=== PATIENT | male | born 1945 | race Two or more races ===

== ENCOUNTER 2024-04-21 13:45 | Outpatient (RCR) | payer MEDICARE, BC, SELFPAY ==
[2024-04-20 08:54] LABS: Basophils # (Auto) 0.1 Thou/mm3 (0.0-0.2); Basophils % (Auto) 2 % (0-2.5); Eosinophils # (Auto) 0.2 Thou/mm3 (0.0-0.5); Eosinophils % (Auto) 4 % (0-10); Hematocrit 41.2 % (41.0-53.0); Hemoglobin 14.1 g/dL (13.5-16.0); Immature Granulocytes % (Auto) 0 % (0-0); Immature Granulocytes Auto 0.01 Thou/mm3 (0.00-0.00); Lymphocytes # (Auto) 0.9 Thou/mm3 (1.0-4.8); Lymphocytes % (Auto) 22 % (10-50); Mean Corpuscular HGB Conc 34.2 g/dl (31.0-37.0); Mean Corpuscular Hemoglobin 30.7 pg (25.0-35.0); Mean Corpuscular Volume 90 fL (80-100); Monocytes # (Auto) 0.5 Thou/mm3 (0.0-0.8); Monocytes % (Auto) 13 % (0-12); Neutrophils # (Auto) 2.3 Thou/mm3 (1.8-7.7); Neutrophils % (Auto) 59 % (37-80); Nucleated Red Blood Cell % 0 /100 WBC (0); Platelet Count 158 Thou/mm3 (140-440); RDW Standard Deviation 44.4 fL (35.1-43.9)
[2024-04-20 09:16] LABS: Alanine Aminotransferase 29 U/L (10-49); Albumin, Serum 4.8 gm/dL (3.4-4.8); Albumin/Globulin Ratio 1.7 (1.2-2.2); Alkaline Phosphatase 83 U/L (46-116); Anion Gap 5 (7-16); Aspartate Amino Transferase 22 U/L (0-34); BUN/Creatinine Ratio 17 Ratio (12-20); Bilirubin,Total 0.7 mg/dL (0.3-1.2); Blood Urea Nitrogen 17 mg/dL (9-23); Calcium 9.9 mg/dL (8.3-10.6); Calcium (Corrected) 9.9 mg/dL (8.5-10.1); Carbon Dioxide 26.5 mMol/L (20.0-31.0); Chloride 107 mMol/L (98-107); Free T4 (Free Thyroxine) 1.72 ng/dL (0.89-1.76); Globulin 2.9 gm/dL (2.3-3.5); Glucose 121 mg/dL (74-106); Osmolality,Calculated 278 (275-295); Potassium 3.8 mMol/L (3.4-5.1); Sodium 138 mMol/L (136-145); Thyroid Stimulating Hormone 3.18 uIU/mL (0.55-4.78); Total Protein 7.7 gm/dL (5.7-8.2); eGFR > 60 See Note
[2024-04-29 06:18] LABS: Cortisol,total,LC/MS/MS* 12.9 mcg/dL
== END 2024-05-07 23:59 | disposition home or self-care (01) ==
LOC: SCTC 13:45
PROVIDERS: PCP Internal Medicine; Referring Provider Internal Medicine; Visit Provider Internal Medicine Hematology & Oncology
DX: Z51.11 Encounter for antineoplastic chemotherapy (principal); C15.4 Malignant neoplasm of middle third of esophagus; Z90.49 Acquired absence of other specified parts of digestive tract; Z92.3 Personal history of irradiation; E03.9 Hypothyroidism, unspecified; Z79.890 Hormone replacement therapy; I10 Essential (primary) hypertension
CPT/HCPCS: 36591; 80053; 82533; 84439; 84443; 85025; 96413; 99212; A4216; J1642; J9299; G0463

== ENCOUNTER 2024-05-26 08:12 | Outpatient (RCR) | payer MEDICARE, BC, SELFPAY ==
[2024-05-11 16:26] LABS: Basophils % (Auto) 1 % (0-2.5); Eosinophils # (Auto) 0.1 Thou/mm3 (0.0-0.5); Eosinophils % (Auto) 3 % (0-10); Hematocrit 39.3 % (41.0-53.0); Hemoglobin 13.5 g/dL (13.5-16.0); Immature Granulocytes % (Auto) 1 % (0-0); Immature Granulocytes Auto 0.02 Thou/mm3 (0.00-0.00); Lymphocytes # (Auto) 1.1 Thou/mm3 (1.0-4.8); Lymphocytes % (Auto) 26 % (10-50); Mean Corpuscular HGB Conc 34.4 g/dl (31.0-37.0); Mean Corpuscular Hemoglobin 30.8 pg (25.0-35.0); Mean Corpuscular Volume 90 fL (80-100); Monocytes # (Auto) 0.5 Thou/mm3 (0.0-0.8); Monocytes % (Auto) 11 % (0-12); Neutrophils # (Auto) 2.5 Thou/mm3 (1.8-7.7); Neutrophils % (Auto) 58 % (37-80); Nucleated Red Blood Cell % 0 /100 WBC (0); Platelet Count 163 Thou/mm3 (140-440); RDW Standard Deviation 44.1 fL (35.1-43.9); Red Blood Count 4.39 Miln/mm3 (4.50-5.90); White Blood Count 4.3 Thou/mm3 (3.8-10.6)
[2024-05-11 16:58] LABS: Alanine Aminotransferase 28 U/L (10-49); Albumin, Serum 4.9 gm/dL (3.4-4.8); Alkaline Phosphatase 90 U/L (46-116); Anion Gap 8 (7-16); Aspartate Amino Transferase 25 U/L (0-34); BUN/Creatinine Ratio 18 Ratio (12-20); Bilirubin,Total 0.5 mg/dL (0.3-1.2); Blood Urea Nitrogen 16 mg/dL (9-23); Calcium 9.5 mg/dL (8.3-10.6); Calcium (Corrected) 9.5 mg/dL (8.5-10.1); Carbon Dioxide 26.3 mMol/L (20.0-31.0); Chloride 104 mMol/L (98-107); Creatinine (Component) 0.9 mg/dL (0.6-1.3); Globulin 2.5 gm/dL (2.3-3.5); Glucose 118 mg/dL (74-106); Osmolality,Calculated 277 (275-295); Potassium 3.8 mMol/L (3.4-5.1); Sodium 138 mMol/L (136-145); Thyroid Stimulating Hormone 1.58 uIU/mL (0.55-4.78); Total Protein 7.4 gm/dL (5.7-8.2); eGFR > 60 See Note
[2024-05-25 15:58] LABS: Basophils % (Auto) 1 % (0-2.5); Eosinophils # (Auto) 0.1 Thou/mm3 (0.0-0.5); Eosinophils % (Auto) 3 % (0-10); Hematocrit 38.9 % (41.0-53.0); Hemoglobin 13.5 g/dL (13.5-16.0); Immature Granulocytes % (Auto) 1 % (0-0); Immature Granulocytes Auto 0.02 Thou/mm3 (0.00-0.00); Lymphocytes % (Auto) 24 % (10-50); Mean Corpuscular HGB Conc 34.7 g/dl (31.0-37.0); Mean Corpuscular Hemoglobin 30.9 pg (25.0-35.0); Mean Corpuscular Volume 89 fL (80-100); Monocytes # (Auto) 0.5 Thou/mm3 (0.0-0.8); Monocytes % (Auto) 12 % (0-12); Neutrophils # (Auto) 2.5 Thou/mm3 (1.8-7.7); Neutrophils % (Auto) 60 % (37-80); Nucleated Red Blood Cell % 0 /100 WBC (0); Platelet Count 160 Thou/mm3 (140-440); RDW Standard Deviation 43.8 fL (35.1-43.9); Red Blood Count 4.37 Miln/mm3 (4.50-5.90); White Blood Count 4.2 Thou/mm3 (3.8-10.6)
[2024-05-25 16:20] LABS: Alanine Aminotransferase 30 U/L (10-49); Albumin, Serum 4.8 gm/dL (3.4-4.8); Albumin/Globulin Ratio 1.8 (1.2-2.2); Alkaline Phosphatase 86 U/L (46-116); Anion Gap 8 (7-16); Aspartate Amino Transferase 23 U/L (0-34); BUN/Creatinine Ratio 24 Ratio (12-20); Bilirubin,Total 0.3 mg/dL (0.3-1.2); Blood Urea Nitrogen 24 mg/dL (9-23); Calcium 9.5 mg/dL (8.3-10.6); Calcium (Corrected) 9.5 mg/dL (8.5-10.1); Carbon Dioxide 23.7 mMol/L (20.0-31.0); Chloride 105 mMol/L (98-107); Globulin 2.6 gm/dL (2.3-3.5); Glucose 190 mg/dL (74-106); Osmolality,Calculated 282 (275-295); Potassium 3.4 mMol/L (3.4-5.1); Sodium 137 mMol/L (136-145); Thyroid Stimulating Hormone 1.45 uIU/mL (0.55-4.78); Total Protein 7.4 gm/dL (5.7-8.2); eGFR > 60 See Note
== END 2024-06-07 23:59 | disposition home or self-care (01) ==
LOC: SCTC 08:12
PROVIDERS: PCP Family Medicine; Referring Provider Family Medicine; Visit Provider Internal Medicine Hematology & Oncology
DX: Z51.11 Encounter for antineoplastic chemotherapy (principal); C15.4 Malignant neoplasm of middle third of esophagus; Z90.49 Acquired absence of other specified parts of digestive tract; Z92.3 Personal history of irradiation; E03.9 Hypothyroidism, unspecified; I10 Essential (primary) hypertension
CPT/HCPCS: 36591; 80053; 84443; 85025; 96413; A4216; J1642; J9299

== ENCOUNTER 2024-06-23 07:38 | Outpatient (RCR) | payer MEDICARE, BC, SELFPAY ==
[2024-06-09 08:30] LABS: Basophils # (Auto) 0.1 Thou/mm3 (0.0-0.2); Basophils % (Auto) 1 % (0-2.5); Eosinophils # (Auto) 0.1 Thou/mm3 (0.0-0.5); Eosinophils % (Auto) 3 % (0-10); Hematocrit 42.1 % (41.0-53.0); Hemoglobin 14.3 g/dL (13.5-16.0); Immature Granulocytes % (Auto) 1 % (0-0); Immature Granulocytes Auto 0.02 Thou/mm3 (0.00-0.00); Lymphocytes # (Auto) 1.1 Thou/mm3 (1.0-4.8); Lymphocytes % (Auto) 25 % (10-50); Mean Corpuscular Hemoglobin 30.4 pg (25.0-35.0); Mean Corpuscular Volume 89 fL (80-100); Monocytes # (Auto) 0.5 Thou/mm3 (0.0-0.8); Monocytes % (Auto) 11 % (0-12); Neutrophils # (Auto) 2.5 Thou/mm3 (1.8-7.7); Neutrophils % (Auto) 59 % (37-80); Nucleated Red Blood Cell % 0 /100 WBC (0); Platelet Count 166 Thou/mm3 (140-440); RDW Standard Deviation 44.1 fL (35.1-43.9); Red Blood Count 4.71 Miln/mm3 (4.50-5.90); White Blood Count 4.3 Thou/mm3 (3.8-10.6)
[2024-06-09 08:57] LABS: Alanine Aminotransferase 29 U/L (10-49); Albumin, Serum 5.1 gm/dL (3.4-4.8); Alkaline Phosphatase 80 U/L (46-116); Anion Gap 9 (7-16); Aspartate Amino Transferase 16 U/L (0-34); BUN/Creatinine Ratio 14 Ratio (12-20); Bilirubin,Total 0.8 mg/dL (0.3-1.2); Blood Urea Nitrogen 13 mg/dL (9-23); Calcium 9.4 mg/dL (8.3-10.6); Calcium (Corrected) 9.4 mg/dL (8.5-10.1); Carbon Dioxide 26.2 mMol/L (20.0-31.0); Chloride 104 mMol/L (98-107); Creatinine (Component) 0.9 mg/dL (0.6-1.3); Globulin 2.6 gm/dL (2.3-3.5); Glucose 100 mg/dL (74-106); Osmolality,Calculated 277 (275-295); Potassium 3.5 mMol/L (3.4-5.1); Sodium 139 mMol/L (136-145); Total Protein 7.7 gm/dL (5.7-8.2); eGFR > 60 See Note
--- NOTE | 2024-06-14 14:27 | CTCFLWUP_ITS ---
Patient: ATIF CUEVA : 1945 Page 2 of 2 FOLLOW UP NOTE DATE OF SERVICE: 06/14/2024 NAME: ATIF CUEVA ACCOUNT: [id number] : 1945 AGE: 78 INTERVAL HISTORY: No new compliants . tolerating opdivo well. ONCOLOGY HISTORY: DIAGNOSIS: Malignant neoplasm of esophagus, unspecified [ICD10] C15.9 DATE OF DIAGNOSIS: 01/13/2022 STAGE/TNM: Recurrent esophageal cancer TREATMENT HISTORY: Care?Plan Start?Date Cycle Day Intent Taxol?50mg/m*2?+?Carbo?AUC?2?+?Concurrent?XRT 04/15/2022 1 7 Curative?(primary) mFOLFOX-6?-?5FU?400?+?2400?CIV,?LVR?400,?OXALIplat?85?nivolumab 04/13/2023 1 14 Palliative OPDIvo 10/08/2023 1 14 Palliative HISTORY OF PRESENT ILLNESS: Atif Cueva is a 78-year-old ENG speaking male with history of hypertension as well as hypo thyroidism has the following oncology history. June 2021: Patient started noticing having trouble swallowing as well as a sensation of a mass les ion in the throat. Initially patient saw ENT physician and later saw Dr. Morillo statistics tutor. 01/13/2022: Mr. Cueva had endoscopy performed by Dr. Morillo. 03/04/2022: Mr. Cueva had PET/CT scan done at [facility]. 03/10/2022: Mr. Cueva had upper GI endoscopy with ultrasound? 03/14/2022: Mr. Cueva was seen by Dr. Morro Cobian, GI surgeon of [facility] who recommended neoadjuvant chemo radiation followed by possible surgery. 03/27/2022: Mr. Cueva was seen by Dr. Chapa, radiation oncologist here at [facility] (formerly [facility])[3]. 06/15/2021 - 05/27/2022: Patient was treated with chemoradiation. For chemotherapy he was on weekly Ta xol and carboplatin. 06/03/2022: PET/CT scan? 07/23/2022: Mr. Cueva had esophagectomy done at [facility]. Surgical pathology report is not available to faisal floyd today. 09/26/2022: PET/CT scan? 02/19/2023: PET/CT scan? 04/13/2023?08/04/2023: Mr. Cueva received 7 cycle of modified FOLFOX 6 with nivolumab. 10/08/2019: He was started on single agent nivolumab. 09/16/2023 - 09/29/2023: Mr. Cueva received 3000 cGy radiation to the chest. 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 Tobacco?Pack?per?Day:?0 Tobacco?Use?Years:?0 Tobacco?Use:?Denies ETOH Use:?Drank 12pk/beer/day x 30yrs- Quit recently Drug?Note:?Denies Social History Note:?Live with ; daughter and son-in-law MEDICATIONS: 1. aspirin - 81 mg 1 tab Daily 2. atorvastatin - 10 mg 1 tab Daily 3. B12 - 5,000-100 mcg 1 tab Daily 4. levothyroxine - 125 mcg 1 tab Daily 5. loratadine - 10 mg 1 tab Daily 6. omeprazole - 40 mg 1 Capsule Daily 7. oxybutynin chloride - 10 mg 1 tab Every day before sleep Medications Last Reconciled by Karolyn Gudino MA on 06/14/2024 ALLERGIES: No Known Drug Allergies REVIEW OF SYSTEMS: A complete 14-point review of systems was performed and is negative except as noted in interval histo ry. PHYSICAL EXAMINATION: VITAL SIGNS: PAIN: 0 - No pain ECOG Performance Status: 0 - Asymptomatic and fully active GENERAL APPEARANCE: Appears well, in no apparent distress, appropriately interactive. HEENT: Normocephalic, no temporal wasting, normal conjunctiva, no scleral icterus, normal hearing, li ps without lesions, neck normal range of motion. CARDIOVASCULAR: Not assessed. PULMONARY: Normal respiratory effort, no respiratory distress or use of accessory muscles, speaking i n full sentences, no tachypnea. EXTREMITIES: No pedal edema or cyanosis. SKIN: Normal skin appearance. NEUROLOGIC: Alert and oriented x4. PSHYCHIATRIC: Appropriate affect, mood normal, behavior normal, intact thought and speech. LABORATORY DATA: I have personally reviewed and interpreted each of the patient?s relevant lab tests, abnormal finding s are below: Date 06/09/24 ??WHITE?BLOOD?COUNT?(Thou/mm3) 4.3 ??RED?BLOOD?COUNT?(Miln/mm3) 4.71 ??HEMOGLOBIN?(gm/dl) 14.3 ??HEMATOCRIT?(%) 42.1 ??PLATELET?COUNT?(Thou/mm3) 166 ??NEUTROPHILS?%,?AUTO?(%) 59 ??LYMPH?%,?AUTO?(%) 25 ??NEUTROPHILS,?AUTO?(Thou/mm3) 2.5 ASSESSMENT/PLAN: 1) Recurrent invasive squamous cancer of esophagus 2) Patient had recurrence in the peritracheal lymph node which was similar to his initial cancer whmelia calderon was diagnosed in 2021 Clinical stage 1 (GEORGE) 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 st able sub centrimeter left upper paratracheal LN with cont resolution of PBS likely treated disease Continue nivolumab for now for a total 2 years CBC CMP TSH #2 hypothyroidism On Levoxyl continue #3 hypertension 0n Norvasc follow-up with PCP ORDERS: Cbc,cmp ,cea RETURN TO CLINIC: RTC in 3 months BILLING AND COMPLIANCE: I reviewed external records from providers outside my specialty as summarized above. I spent a total of 50 minutes on this patient?s care on the day of their visit excluding time spent related to any bi lled procedures. This time includes time spent with the patient as well as time spent documenting in the medical record, reviewing patients records and tests, obtaining history, placing orders, communi cating with other healthcare professionals, counseling the patient, family or caregiver, and/or care coordination for the diagnoses above. Electronically Signed by: Lupillo Cisneros MD T: 2:25 PM CC: Krys?JUDI Morillo PCP: Alesia Cueva Referring: Hammad, Alesia This document was completed utilizing speech recognition software. Grammatical errors, random word in sertions, pronoun errors, and incomplete sentences are an occasional consequence of this system due t o software limitations, ambient noise, and hardware issues. Any formal questions or concerns about th e content, text or information contained within the body of this dictation should be directly address ed to the provider for clarification.
[2024-06-22 12:47] LABS: Immature Reticulocyte Fraction 18.6 % (2.3-13.4); Reticulocyte % (Auto) 1.9 % (0.5-1.5); Reticulocyte Absolute Auto 84.8 Biln/L (25.0-75.0)
[2024-06-22 13:10] LABS: Alanine Aminotransferase 31 U/L (10-49); Alkaline Phosphatase 82 U/L (46-116); Anion Gap 9 (7-16); Aspartate Amino Transferase 22 U/L (0-34); BUN/Creatinine Ratio 20 Ratio (12-20); Bilirubin,Total 0.7 mg/dL (0.3-1.2); Blood Urea Nitrogen 16 mg/dL (9-23); Calcium 9.5 mg/dL (8.3-10.6); Calcium (Corrected) 9.5 mg/dL (8.5-10.1); Carbon Dioxide 27.3 mMol/L (20.0-31.0); Chloride 103 mMol/L (98-107); Creatinine (Component) 0.8 mg/dL (0.6-1.3); Globulin 2.5 gm/dL (2.3-3.5); Glucose 72 mg/dL (74-106); Osmolality,Calculated 277 (275-295); Potassium 3.8 mMol/L (3.4-5.1); Sodium 139 mMol/L (136-145); Total Protein 7.5 gm/dL (5.7-8.2); eGFR > 60 See Note
[2024-06-22 13:11] LABS: Vitamin B12 1419 pg/mL (211-911)
[2024-06-22 13:30] LABS: Ferritin 86 ng/mL (10.5-307.3); Total Iron Binding Capacity 330 mcg/dL (250-425)
[2024-06-22 13:40] LABS: Iron 94 mcg/dL (65-175); Percent Iron Saturation 28 % (20-55); Unsaturated Iron Binding 236 (225-295)
[2024-06-22 15:52] LABS: Basophils # (Auto) 0.1 Thou/mm3 (0.0-0.2); Basophils % (Auto) 1 % (0-2.5); Eosinophils # (Auto) 0.1 Thou/mm3 (0.0-0.5); Eosinophils % (Auto) 2 % (0-10); Hematocrit 42.2 % (41.0-53.0); Immature Granulocytes % (Auto) 0 % (0-0); Immature Granulocytes Auto 0.01 Thou/mm3 (0.00-0.00); Lymphocytes % (Auto) 22 % (10-50); Mean Corpuscular HGB Conc 33.2 g/dl (31.0-37.0); Mean Corpuscular Hemoglobin 30.8 pg (25.0-35.0); Mean Corpuscular Volume 93 fL (80-100); Monocytes # (Auto) 0.5 Thou/mm3 (0.0-0.8); Monocytes % (Auto) 12 % (0-12); Neutrophils # (Auto) 2.8 Thou/mm3 (1.8-7.7); Neutrophils % (Auto) 63 % (37-80); Nucleated Red Blood Cell % 0 /100 WBC (0); Platelet Count 160 Thou/mm3 (140-440); RDW Standard Deviation 46.5 fL (35.1-43.9); Red Blood Count 4.55 Miln/mm3 (4.50-5.90); White Blood Count 4.4 Thou/mm3 (3.8-10.6)
== END 2024-07-08 23:59 | disposition home or self-care (01) ==
LOC: SCTC 07:38
PROVIDERS: PCP Family Medicine; Referring Provider Family Medicine; Visit Provider Internal Medicine Hematology & Oncology
DX: Z51.11 Encounter for antineoplastic chemotherapy (principal); C15.4 Malignant neoplasm of middle third of esophagus; E03.9 Hypothyroidism, unspecified; I10 Essential (primary) hypertension; Z90.49 Acquired absence of other specified parts of digestive tract; Z92.3 Personal history of irradiation
CPT/HCPCS: 36591; 80053; 82607; 82728; 82746; 83540; 83550; 84443; 85025; 85046; 96413; 99212; A4216; J1642; J7040; J9299; G0463

== ENCOUNTER → 2024-07-14 | Outpatient (CLI) | payer MEDICARE, BC, SELFPAY ==
--- NOTE | 2024-07-14 12:20 | XR_ITS ---
Examination: Bone densitometry Date and time of exam:July 14, 2024 1212 hours INDICATIONS: 78-year-old male with diagnosis age related osteoporosis, levothyroxine 5 years Technique: Lumbar spine and hip total bone mineralization values of an calculated. Peak reference and age match control results have been displayed. Findings: Lumbar spine total bone mineralization is1.127 gm/cm2. This is 0.3 standard deviations above peak reference. This is 1.4 standard deviations above age-matched controls. Hip total bone mineralization is 1.137 gm/cm2 This is 0.6 standard deviations above peak reference. This is 1.5 standard deviations above age-matched controls Impression: There is normal mineralization based on lumbar spine measurements. There is normal mineralization based on hip measurements
== END | disposition home or self-care (01) ==
PROVIDERS: PCP Internal Medicine; Referring Provider Internal Medicine Hematology & Oncology; Visit Provider Internal Medicine Hematology & Oncology
DX: M81.0 Age-related osteoporosis without current pathological fracture (principal)
CPT/HCPCS: 77080

== ENCOUNTER 2024-08-03 09:39 | Outpatient (RCR) | payer MEDICARE, BC, SELFPAY ==
--- NOTE | 2024-07-19 10:14 | CTCFLWUP_ITS ---
Robinson Madrigal [facility] [address], [place] [address] FOLLOW-UP NOTE Date: 07/19/2024 MR#: [id number] Name: LUTHER DOBSON : 1945 Dx: C15.9 Malignant neoplasm of esophagus, unspecified Identification. Moderately differentiated invasive squamous SCCA midesophagus 03/10/2022 clinical stage I. Chemoradiation 04/15/2022 through 01/17/2022 4140 centigray. Esophagectomy 07/23/2022. No residual carcinoma with multiple lymph nodes removed. PET scan 09/26/2022 clear. PET scan 03/01/2023 showed interval recurrence left pretracheal lymph nodes similar to previously treated disease.. Received modified FOLFOX 6 nivolumab 04/13/2023 through August 04, 2023. Single agent nivolumab since 08/27/2023. Additional radiation therapy 3000 cGy in 10 fractions via VMAT completed 09/29/2023. Most recent PET scan performed [facility] February 2024 reportedly revealed no suspicious lesions stable subcentimeter left upper peritracheal lymph node with continual resolution of likely treated disease. Clinically patient is doing well BP 138/75 weight 146 Lungs clear. No masses felt in the neck. Assessment.1 Moderately differentiated invasive squamous cell midesophagus clinical stage I 03/10/2022 2. Neoadjuvant chemoradiation 04/15/2022 through 01/17/2022. 3. Surgery [facility] 07/23/2022 no residual carcinoma 4. PET scan 03/01/2023 suggests recurrence after initial good response. 5. Modified FOLFOX 04/13/2023 through 08/04/2023., Single agent nivolumab since 08/27/2023. 6. Additional radiotherapy to recurrent site 3000 centigray via VMAT completed 09/29/2023 7. Patient had good PET scan results February 2024, and has a new 1 pending at [facility] with another eval by [facility] thoracic surgeon and Dr. Cisneros. Also doing well clinically. 8. I will see patient again in 6 months. Electronically signed by: Royer Chapa M.D. 07/19/2024 10:12 AM
[2024-07-20 09:45] LABS: Basophils # (Auto) 0.1 Thou/mm3 (0.0-0.2); Basophils % (Auto) 1 % (0-2.5); Eosinophils # (Auto) 0.1 Thou/mm3 (0.0-0.5); Eosinophils % (Auto) 2 % (0-10); Hematocrit 41.9 % (41.0-53.0); Hemoglobin 14.1 g/dL (13.5-16.0); Immature Granulocytes % (Auto) 0 % (0-0); Immature Granulocytes Auto 0.01 Thou/mm3 (0.00-0.00); Lymphocytes % (Auto) 24 % (10-50); Mean Corpuscular HGB Conc 33.7 g/dl (31.0-37.0); Mean Corpuscular Hemoglobin 30.7 pg (25.0-35.0); Mean Corpuscular Volume 91 fL (80-100); Monocytes # (Auto) 0.5 Thou/mm3 (0.0-0.8); Monocytes % (Auto) 13 % (0-12); Neutrophils # (Auto) 2.4 Thou/mm3 (1.8-7.7); Neutrophils % (Auto) 60 % (37-80); Nucleated Red Blood Cell % 0 /100 WBC (0); Platelet Count 170 Thou/mm3 (140-440); RDW Standard Deviation 45.5 fL (35.1-43.9); White Blood Count 4.1 Thou/mm3 (3.8-10.6)
[2024-07-20 10:06] LABS: Alanine Aminotransferase 26 U/L (10-49); Albumin, Serum 4.7 gm/dL (3.4-4.8); Albumin/Globulin Ratio 1.8 (1.2-2.2); Alkaline Phosphatase 81 U/L (46-116); Anion Gap 6 (7-16); Aspartate Amino Transferase 20 U/L (0-34); BUN/Creatinine Ratio 19 Ratio (12-20); Bilirubin,Total 0.7 mg/dL (0.3-1.2); Blood Urea Nitrogen 15 mg/dL (9-23); Calcium 9.5 mg/dL (8.3-10.6); Calcium (Corrected) 9.5 mg/dL (8.5-10.1); Carbon Dioxide 25.8 mMol/L (20.0-31.0); Chloride 108 mMol/L (98-107); Creatinine (Component) 0.8 mg/dL (0.6-1.3); Globulin 2.6 gm/dL (2.3-3.5); Glucose 75 mg/dL (74-106); Osmolality,Calculated 279 (275-295); Potassium 3.6 mMol/L (3.4-5.1); Sodium 140 mMol/L (136-145); Thyroid Stimulating Hormone 0.62 uIU/mL (0.55-4.78); Total Protein 7.3 gm/dL (5.7-8.2); eGFR > 60 See Note
== END 2024-08-05 23:59 | disposition home or self-care (01) ==
LOC: SCTC 09:39
PROVIDERS: Internal Medicine Hematology & Oncology; PCP Internal Medicine; Referring Provider Internal Medicine; Visit Provider Radiology Therapeutic Radiology
DX: Z51.11 Encounter for antineoplastic chemotherapy (principal); C15.4 Malignant neoplasm of middle third of esophagus; Z92.3 Personal history of irradiation
CPT/HCPCS: 36591; 80053; 84443; 85025; 96413; 99212; A4216; J1642; J7040; J7050; J9299; G0463

== ENCOUNTER 2024-08-08 11:08 | Emergency (ER) | payer MEDICARE, BC, SELFPAY ==
[2024-08-08 11:22] VITALS: BP 149/80; PULSE 78; RESP 18; TEMP 36.7; O2SAT 98; BMI 24.1
--- NOTE | 2024-08-08 11:32 | PD.EDRME ---
Rapid Medical Screening Exam RME Arrival date/time: 08/08/24 11:08 78-year-old male with a history of hyperlipidemia, and esophageal cancer presents to the emergency room with a chief complaint of an infected port. Patient uses port for his cancer treatment and states it is very warm to the touch, tender and this morning there was pus draining out of it. Patient called his cancer treatment center and was sent to the emergency room. I have greeted and performed a focused initial assessment of this patient. A comprehensive ED assessment and evaluation of the patient, analysis of all test results, and completion of the medical decision making process will be conducted by additional ED providers. Chief Complaint: General Adult/Misc Complain Vital signs: Vital Signs Temperature 98.0 F 08/08/24 11:22 Pulse Rate 78 08/08/24 11:22 Respiratory Rate 18 08/08/24 11:22 Blood Pressure 149/80 H 08/08/24 11:22 Pulse Oximetry (%) 98 08/08/24 11:22 Oxygen Delivery Method Room Air 08/08/24 11:22 Vital signs reviewed by provider: Yes
[2024-08-08 11:52] LABS: Lactate (Lactic Acid) 0.8 mMol/L (0.4-2.0)
[2024-08-08 11:55] LABS: Basophils # (Auto) 0.1 Thou/mm3 (0.0-0.2); Basophils % (Auto) 1 % (0-2.5); Eosinophils # (Auto) 0.1 Thou/mm3 (0.0-0.5); Eosinophils % (Auto) 2 % (0-10); Hematocrit 43.9 % (41.0-53.0); Immature Granulocytes % (Auto) 0 % (0-0); Immature Granulocytes Auto 0.01 Thou/mm3 (0.00-0.00); Lymphocytes # (Auto) 1.2 Thou/mm3 (1.0-4.8); Lymphocytes % (Auto) 24 % (10-50); Mean Corpuscular HGB Conc 34.2 g/dl (31.0-37.0); Mean Corpuscular Hemoglobin 30.9 pg (25.0-35.0); Mean Corpuscular Volume 90 fL (80-100); Monocytes # (Auto) 0.5 Thou/mm3 (0.0-0.8); Monocytes % (Auto) 11 % (0-12); Neutrophils % (Auto) 62 % (37-80); Nucleated Red Blood Cell % 0 /100 WBC (0); Platelet Count 195 Thou/mm3 (140-440); RDW Standard Deviation 43.8 fL (35.1-43.9); Red Blood Count 4.86 Miln/mm3 (4.50-5.90); White Blood Count 4.8 Thou/mm3 (3.8-10.6)
[2024-08-08 12:26] LABS: Alanine Aminotransferase 31 U/L (10-49); Albumin, Serum 4.9 gm/dL (3.4-4.8); Albumin/Globulin Ratio 1.7 (1.2-2.2); Alkaline Phosphatase 97 U/L (46-116); Anion Gap 8 (7-16); Aspartate Amino Transferase 23 U/L (0-34); BUN/Creatinine Ratio 17 Ratio (12-20); Bilirubin,Total 0.5 mg/dL (0.3-1.2); Blood Urea Nitrogen 19 mg/dL (9-23); Calcium 9.8 mg/dL (8.3-10.6); Calcium (Corrected) 9.8 mg/dL (8.5-10.1); Carbon Dioxide 26.3 mMol/L (20.0-31.0); Chloride 106 mMol/L (98-107); Creatinine (Component) 1.1 mg/dL (0.6-1.3); Estimated Creatinine Clearance 48.9 mL/min (>60); Globulin 2.9 gm/dL (2.3-3.5); Glucose 94 mg/dL (74-106); Osmolality,Calculated 281 (275-295); Potassium 4.3 mMol/L (3.4-5.1); Procalcitonin < 0.04 ng/ml (0.0-0.49); Sodium 140 mMol/L (136-145); Total Protein 7.8 gm/dL (5.7-8.2); eGFR > 60 See Note
[2024-08-08 15:22] VITALS: BP 137/87; PULSE 81; RESP 20; TEMP 36.7; O2SAT 96
--- NOTE | 2024-08-08 16:16 | PC.NURSE ---
PT'S GOT TIRED OF WAITING SO TOOK PT HOME.
== END 2024-08-08 16:16 | disposition left against medical advice (07) ==
LOC: SERX 11:58
PROVIDERS: Nurse Practitioner Family; Emergency Provider Emergency Medicine; PCP Internal Medicine
DX: T80.219A Unspecified infection due to central venous catheter, initial encounter (principal); C15.9 Malignant neoplasm of esophagus, unspecified; E78.5 Hyperlipidemia, unspecified; Z53.29 Procedure and treatment not carried out because of patient's decision for other reasons; Y84.8 Other medical procedures as the cause of abnormal reaction of the patient, or of later complication, without mention of misadventure at the time of the procedure
CPT/HCPCS: 36415; 80053; 81001; 83605; 84145; 85025; 87040; 87086; 99283

== ENCOUNTER 2024-08-09 06:08 | Emergency (ER) | payer MEDICARE, BC, SELFPAY ==
[2024-08-09 06:09] VITALS: BMI 24.3
[2024-08-09 06:21] VITALS: BP 144/74; PULSE 90; RESP 17; TEMP 36.5; O2SAT 97
--- NOTE | 2024-08-09 06:38 | PD.EDSKIN ---
ED Skin Abcess FB-RME/HPI General Chief complaint: Skin/Abscess/Foreign Body Stated complaint: POSS INFECTED PORT Time Seen by Provider: 08/09/24 06:15 Source: patient Arrival date/time: 08/09/24 06:08 78-year-old male with a history of hyperlipidemia, and esophageal cancer presents to the emergency room with a chief complaint of an infected port. Patient uses port for his cancer treatment and states it is very warm to the touch, tender and this morning there was pus draining out of it. Patient called his cancer treatment center and was sent to the emergency room. Mode of arrival: ambulatory Limitations: no limitations Related Data Home Medications ?Medication ?Instructions ?Recorded ?Confirmed atorvastatin 10 mg tablet 1 tab PO DAILY 01/13/22 04/08/23 levothyroxine 25 mcg tablet 75 mcg PO DAILY 01/13/22 04/08/23 loratadine 10 mg tablet 10 mg PO QDAY 04/08/23 04/08/23 (Allerclear) ucshlybv-aquo-ssbkgss gluconate 9 1 ml PO DAILY 04/08/23 04/08/23 mg iron/15 mL (15 mL) oral liquid (Centrum) oxybutynin chloride 10 mg 10 mg PO QDAY 04/08/23 04/08/23 tablet,extended release 24 hr Allergies Allergy/AdvReac Type Severity Reaction Status Date / Time No Known Allergies Allergy Verified 08/08/24 11:09 Review of Systems Review of Systems Systems Reviewed: All systems reviewed, normal except as documented Constitutional Constitutional: Reports system reviewed and no additional complaints, except as documented, Denies fatigue, Denies fever(s), Denies headache(s) and Denies weakness Eyes Eyes: Reports system reviewed and no additional complaints, except as documented, Denies blurry vision and Denies change in vision ENT Ears, Nose, Mouth, and Throat: Reports system reviewed and no additional complaints, except as documented, Denies otalgia, Denies headache(s), Denies nasal congestion, Denies throat swelling and Denies vertigo Cardiovascular Cardiovascular: Reports system reviewed and no additional complaints, except as documented, Denies chest pain, Denies dyspnea and Denies dyspnea on exertion Respiratory Respiratory: Reports system reviewed and no additional complaints, except as documented, Denies chest congestion, Denies cough, Denies dyspnea, Denies dyspnea on exertion and Denies wheezing Gastrointestinal Gastrointestinal: Reports system reviewed and no additional complaints, except as documented, Denies abdominal pain, Denies cramping, Denies nausea and Denies vomiting Genitourinary Genitourinary: Reports system reviewed and no additional complaints, except as documented, Denies dysuria and Denies hematuria Musculoskeletal Musculoskeletal: Reports system reviewed and no additional complaints, except as documented and Denies back pain Integumentary/Breasts Skin/Breast: Reports system reviewed and no additional complaints, except as documented, Reports erythema and Reports wounds (Right upper chest port infection) Neurologic Neurologic: Reports system reviewed and no additional complaints, except as documented, Denies confusion, Denies headache(s), Denies lack of coordination, Denies vertigo and Denies weakness Psychiatric Psychiatric: Reports system reviewed and no additional complaints, except as documented, Denies anxiety, Denies confusion, Denies depression, Denies paranoia, Denies suicidal ideation and Denies tactile hallucinations Endocrine Endocrine: Reports system reviewed and no additional complaints, except as documented and Denies fatigue Hematologic/Lymphatic Hematologic/Lymphatic: Reports system reviewed and no additional complaints, except as documented and Denies lymphadenopathy Allergic/Immunologic Allergic/Immunologic: Reports system reviewed and no additional complaints, except as documented, Denies throat swelling, Denies urticaria and Denies wheezing Past Medical History Past Medical History NEUROLOGIC: Negative Neurological Disorders, Seizures or Migraine CARDIAC: Positive Cardiac Disorders, Hypercholesterolemia and Hypertension; Negative Congestive Heart Failure RESPIRATORY: Negative Chronic Obstructive Pulmonary Disease (COPD), Asthma or Sleep Apnea GASTROINTESTINAL: Negative Gastrointestinal Disorders or Gastroesophageal Reflux Disease GENITOURINARY: Negative Genitourinary Disorders or Renal Disease MUSCULOSKELETAL: Positive Musculoskeletal Disorders ENT: Negative Cataracts or Glaucoma ENDOCRINE: Positive Endocrine Disorders and Hypothyroidism; Negative Diabetes Mellitus Type 1 or Diabetes Mellitus Type 2 HEMATOLOGIC: Positive Anemia; Negative Blood Disorders OTHER HISTORY: Positive Chemotherapy (2021), Radiation Therapy (2021) and Cancer (esaphageal cancer); Negative Blood Transfusions, Blood Transfusion Reaction or Anesthesia Reactions Family History FAMILY HISTORY: Positive Family Cancer (sister bone cancer and mother); Negative Family Respiratory Disorders, Family Cardiac Disorders or Family Anesthesia Reaction Social History SMOKING STATUS: Never smoker ED Exam General Limitations: Present no limitations General appearance: Present alert and in no apparent distress Head Head exam: Present atraumatic Eye Eye exam: Present normal appearance, PERRL and EOMI ENT ENT exam: Present normal exam, normal oropharynx and mucous membranes moist Neck Neck exam: Present normal inspection, full ROM and trachea midline Chest Chest inspection: Present normal inspection and symmetric chest wall rise Expanded Chest Exam Trauma: Present surgical incision (The patient has a port that he uses for chemotherapy) Breast: right: other Respiratory Respiratory exam: Present normal lung sounds bilaterally Cardiovascular Cardiovascular exam: Present regular rate, normal rhythm and normal heart sounds Abdominal Exam Abdominal exam: Present soft and normal bowel sounds Extremities Exam Extremities exam: Present normal inspection and full ROM Back Exam Back exam: Present normal inspection and full ROM Neurological Exam Neurological exam: Present alert, oriented X3 and CN II-XII intact Psychiatric Psychiatric exam: Present normal affect and normal mood Skin Skin exam: Present warm, dry, intact and normal color Course Quality Measures none Orders Category Date Time Status Insert IV NOW Care 08/09/24 06:35 Completed CBC Stat Lab 08/09/24 06:59 Completed CMP [Comprehensive Metabolic Panel] Stat Lab 08/09/24 06:59 Completed Piper/Tazo Inj [Zosyn Inj] 3.375 gm Med 08/09/24 06:37 Discontinued SODIUM CHLORIDE 0.9% (Popper) [Ns 0.9% (P)] 50 ml IV X1 Vancomycin Inj 1,000 mg Med 08/09/24 06:38 Discontinued Sodium Chloride 0.9% 250 ml [Ns] 250 ml IV X1 Vital Signs Vital signs: Vital Signs Temperature 97.7 F 08/09/24 06:21 Pulse Rate 90 08/09/24 06:21 Respiratory Rate 17 08/09/24 06:21 Blood Pressure 144/74 H 08/09/24 06:21 Pulse Oximetry (%) 97 08/09/24 06:21 Oxygen Delivery Method Room Air 08/09/24 06:21 Skin / Abscess / Foreign Body MDM Narrative MDM Narrative:: 78-year-old male with a history of hyperlipidemia, and esophageal cancer presents to the emergency room with a chief complaint of an infected port. Patient uses port for his cancer treatment and states it is very warm to the touch, tender and this morning there was pus draining out of it. Patient called his cancer treatment center and was sent to the emergency room. Patient is hemodynamically stable and in no apparent distress. The patient is afebrile not tachypneic and not tachycardic Physical examination shows a medication port to the right upper chest that is used for the patient's chemotherapy. Patient states the last time the port was used was 2 weeks ago and chemotherapy was given through for his esophageal cancer. The area is erythemic, warm to the touch, tender and patient states there was pus draining from it this morning. Patient was seen here yesterday but the patient eloped. Patient states he saw his primary doctor which told him due to his immunocompromise state he will need IV antibiotics. His primary doctor switched his oral antibiotics from Keflex to Bactrim. IV antibiotics were given. Patient also states that a referral was made to a surgeon to remove this port. Patient was discharged and educated to follow-up with his primary care provider and return to the emergency room for any evidence of worsening signs or symptoms Patient data External records reviewed:: [facility] previous records Clinical information provided by:: patient Social determinants that could affect healthcare access:: none Patient has the following chronic illnesses:: Esophageal cancer, hyperlipidemia How is presenting disease/condition affected by chronic disease/condition?: uneffected by Evaluation data The following diagnostics were reviewed and interpreted by me:: lab results and radiology exam(s) Lab and/or radiology exams considered but not ordered:: Labs and radiology exams considered and ordered Interpretation Summary: N/A Medications / Prescriptions Medications or Prescriptions considered but not ordered:: Medication given Medication administrations:: Medication Administration History Discontinued Medications Piperacillin Sod/Tazobactam (Sod 3.375 gm/ Sodium Chloride) 50 mls @ 100 mls/hr IV X1 ONE Stop: 08/09/24 07:06 Last Infusion: 08/09/24 10:25 Dose: Infused Documented By: Admin: 08/09/24 09:53 Dose: 100 mls/hr Documented By: ER Vancomycin HCl 1,000 mg/ (Sodium Chloride) 250 mls @ 150 mls/hr IV X1 ONE Stop: 08/09/24 08:17 Last Infusion: 08/09/24 09:35 Dose: Infused Documented By: Admin: 08/09/24 07:45 Dose: 150 mls/hr Documented By: ER Medication given Consultations Consultation(s) initiated? (list below): No Diagnosis Skin/Abscess Differential Diagnosis: abscess of skin or subcutaneous tissue, cellulitis, contact dermatitis and other (Infection to port) Most likely diagnosis given after review of the tests above:: Port catheter infection Admission Indicated Admission indicated?: not indicated Admission Request Was there a request for admission?: No Disposition Plan Disposition Plan: Discharge Discharge Attestation Discharge Attestation: The patient and all family members were given an opportunity to ask questions and understood the discharge instructions. Discharge instructions specifically effects, indications for sooner follow up or return to the emergency department, and the expected course of current diagnosis. Patient condition: Stable Discharge Plan Plan Patient Disposition: HOME (Self Care) Disposition Comment: Stable Prescriptions/Referrals Prescriptions/Med Rec: No Action atorvastatin 10 mg tablet 1 tab PO DAILY levothyroxine 25 mcg tablet 75 mcg PO DAILY oxybutynin chloride 10 mg Tablet Extended Release 24hr 10 mg PO QDAY loratadine [Allerclear] 10 mg Tablet 10 mg PO QDAY vwmzjuhg-wpv-wenhodh gluconate [Centrum] 9 mg iron/ 15 mL (15 mL) Liquid 1 ml PO DAILY Referrals: Temporary Provider,ED [Physician] - In 1 week Problem List Clinical Impression: Infected venous access port Patient/Caregiver Discharge Instructions Education Materials: Central Line Infections Additional Instructions: Please follow-up with your primary care provider in the next 24 to 48 hours. Your blood work was negative for any acute infection to your bloodstream. A dose of IV antibiotics was given to you. Please continue to take the oral antibiotics that were prescribed by your primary care provider. For any evidence of worsening signs or symptoms return to the emergency room immediately Print Language: Faroese Stand Alone Forms: Lilia Award Info., Patient Portal Info Letter PA/JORGE Supervising Physician SAAD/JORGE Supervising Physician: Dr. Chapa
[2024-08-09 07:25] LABS: Basophils # (Auto) 0.1 Thou/mm3 (0.0-0.2); Basophils % (Auto) 1 % (0-2.5); Eosinophils # (Auto) 0.1 Thou/mm3 (0.0-0.5); Eosinophils % (Auto) 2 % (0-10); Hemoglobin 14.8 g/dL (13.5-16.0); Immature Granulocytes % (Auto) 1 % (0-0); Immature Granulocytes Auto 0.02 Thou/mm3 (0.00-0.00); Lymphocytes # (Auto) 0.8 Thou/mm3 (1.0-4.8); Lymphocytes % (Auto) 17 % (10-50); Mean Corpuscular HGB Conc 33.6 g/dl (31.0-37.0); Mean Corpuscular Hemoglobin 30.3 pg (25.0-35.0); Mean Corpuscular Volume 90 fL (80-100); Monocytes # (Auto) 0.4 Thou/mm3 (0.0-0.8); Monocytes % (Auto) 9 % (0-12); Neutrophils # (Auto) 3.1 Thou/mm3 (1.8-7.7); Neutrophils % (Auto) 71 % (37-80); Nucleated Red Blood Cell % 0 /100 WBC (0); Platelet Count 187 Thou/mm3 (140-440); RDW Standard Deviation 43.5 fL (35.1-43.9); Red Blood Count 4.88 Miln/mm3 (4.50-5.90); White Blood Count 4.4 Thou/mm3 (3.8-10.6)
[2024-08-09 07:44] LABS: Alanine Aminotransferase 29 U/L (10-49); Albumin/Globulin Ratio 1.9 (1.2-2.2); Alkaline Phosphatase 94 U/L (46-116); Anion Gap 6 (7-16); Aspartate Amino Transferase 20 U/L (0-34); BUN/Creatinine Ratio 16 Ratio (12-20); Bilirubin,Total 0.7 mg/dL (0.3-1.2); Blood Urea Nitrogen 16 mg/dL (9-23); Calcium 9.6 mg/dL (8.3-10.6); Calcium (Corrected) 9.6 mg/dL (8.5-10.1); Carbon Dioxide 27.8 mMol/L (20.0-31.0); Chloride 106 mMol/L (98-107); Estimated Creatinine Clearance 53.8 mL/min (>60); Globulin 2.7 gm/dL (2.3-3.5); Glucose 124 mg/dL (74-106); Osmolality,Calculated 281 (275-295); Sodium 140 mMol/L (136-145); Total Protein 7.7 gm/dL (5.7-8.2); eGFR > 60 See Note
[2024-08-09] MEDS: Vancomycin Inj 1,000 MG in SODIUM CHLORIDE 0.9% 250 ML 250 ML 150 MG IV (07:45)
[2024-08-09 08:00] VITALS: BP 119/63; PULSE 64; RESP 18; TEMP 36.6; O2SAT 99
[2024-08-09] MEDS: PIPER/TAZO INJ 3.375 GM in SODIUM CHLORIDE 0.9% (Popper) 50 ML IV (09:53)
[2024-08-09 10:00] VITALS: BP 127/60; PULSE 60; RESP 18; TEMP 36.6; O2SAT 97
[2024-08-09 11:02] VITALS: BP 130/71; PULSE 63; RESP 18; TEMP 36.6; O2SAT 98
== END 2024-08-09 11:03 | disposition home or self-care (01) ==
PROVIDERS: Nurse Practitioner Family; Emergency Provider Emergency Medicine; PCP Internal Medicine
DX: T80.212A Local infection due to central venous catheter, initial encounter (principal); B99.9 Unspecified infectious disease; Y83.8 Other surgical procedures as the cause of abnormal reaction of the patient, or of later complication, without mention of misadventure at the time of the procedure
CPT/HCPCS: 36415; 80053; 85025; 96365; 96366; 96367; 99284; J2543; J3371; J7050

== ENCOUNTER 2024-08-16 08:23 | Emergency (ER) | payer MEDICARE, BC, SELFPAY ==
[2024-08-16 08:42] VITALS: BP 128/74; PULSE 102; RESP 19; TEMP 37.3; O2SAT 95
--- NOTE | 2024-08-16 08:43 | PD.EDRME ---
Rapid Medical Screening Exam E Arrival date/time: 08/16/24 08:23 78-year-old male with a history of hyperlipidemia, esophageal cancer presents to the emergency room with a chief complaint of an infected port to his right upper chest. Patient states he has this port for chemotherapy and in the last 2 weeks the site has become tender, erythemic, and pus is draining. Patient states he called his doctor at the cancer treatment center and was sent to the emergency room. Patient states he has an appointment to remove this port on 08/25/2024 I have greeted and performed a focused initial assessment of this patient. A comprehensive ED assessment and evaluation of the patient, analysis of all test results, and completion of the medical decision making process will be conducted by additional ED providers. Chief Complaint: Fever Time Seen by Provider: 08/16/24 08:32 Vital signs: Vital Signs Temperature 99.2 F 08/16/24 08:42 Pulse Rate 102 H 08/16/24 08:42 Respiratory Rate 19 08/16/24 08:42 Blood Pressure 128/74 08/16/24 08:42 Pulse Oximetry (%) 95 08/16/24 08:42 Oxygen Delivery Method Room Air 08/16/24 08:42 Vital signs reviewed by provider: Yes
[2024-08-16 10:08] LABS: Lactate (Lactic Acid) 1.5 mMol/L (0.4-2.0)
[2024-08-16 10:10] LABS: Basophils % (Auto) 1 % (0-2.5); Eosinophils % (Auto) 0 % (0-10); Hematocrit 41.9 % (41.0-53.0); Hemoglobin 14.4 g/dL (13.5-16.0); Immature Granulocytes % (Auto) 0 % (0-0); Immature Granulocytes Auto 0.02 Thou/mm3 (0.00-0.00); Lymphocytes # (Auto) 0.5 Thou/mm3 (1.0-4.8); Lymphocytes % (Auto) 10 % (10-50); Mean Corpuscular HGB Conc 34.4 g/dl (31.0-37.0); Mean Corpuscular Volume 87 fL (80-100); Monocytes # (Auto) 0.6 Thou/mm3 (0.0-0.8); Monocytes % (Auto) 12 % (0-12); Neutrophils # (Auto) 3.8 Thou/mm3 (1.8-7.7); Neutrophils % (Auto) 77 % (37-80); Nucleated Red Blood Cell % 0 /100 WBC (0); Platelet Count 140 Thou/mm3 (140-440); RDW Standard Deviation 42.8 fL (35.1-43.9); White Blood Count 4.9 Thou/mm3 (3.8-10.6)
[2024-08-16 10:35] LABS: Alanine Aminotransferase 32 U/L (10-49); Albumin, Serum 4.9 gm/dL (3.4-4.8); Albumin/Globulin Ratio 1.7 (1.2-2.2); Alkaline Phosphatase 94 U/L (46-116); Anion Gap 8 (7-16); Aspartate Amino Transferase 30 U/L (0-34); BUN/Creatinine Ratio 12 Ratio (12-20); Bilirubin,Total 0.6 mg/dL (0.3-1.2); Blood Urea Nitrogen 13 mg/dL (9-23); Calcium 9.4 mg/dL (8.3-10.6); Calcium (Corrected) 9.4 mg/dL (8.5-10.1); Carbon Dioxide 22.8 mMol/L (20.0-31.0); Chloride 100 mMol/L (98-107); Creatinine (Component) 1.1 mg/dL (0.6-1.3); Globulin 2.9 gm/dL (2.3-3.5); Glucose 118 mg/dL (74-106); Osmolality,Calculated 263 (275-295); Potassium 4.3 mMol/L (3.4-5.1); Procalcitonin 0.12 ng/ml (0.0-0.49); Sodium 131 mMol/L (136-145); Total Protein 7.8 gm/dL (5.7-8.2); eGFR > 60 See Note
[2024-08-16 11:05] VITALS: BP 124/74; PULSE 103; RESP 18; TEMP 37.5; O2SAT 97; BMI 22.8
--- NOTE | 2024-08-16 12:54 | PD.EDADULT ---
ED General RME/HPI General Chief complaint: Fever Stated complaint: INFECTED PORT L) UPPER CHEST, LOW GRADE FEVER Time Seen by Provider: 08/16/24 08:32 Arrival date/time: 08/16/24 08:23 CC: Infected PowerPort HPI patient has cancer, the PowerPort is currently not being used for chemotherapy as the patient has peripheral access. The patient is scheduled to have the PowerPort removed by Dr. Danae Tatum on August 25. was concerned as the site continues to look red with a small amount of pus coming from it. denies any high fever but a low-grade fever 99.5. He has had a mild loss of appetite but does take Ensure between meals. The patient is awake alert oriented nontoxic-appearing and not in any acute distress. RME / HPI RME / HPI narrative: 08/16/24 08:23 78-year-old male with a history of hyperlipidemia, esophageal cancer presents to the emergency room with a chief complaint of an infected port to his right upper chest. Patient states he has this port for chemotherapy and in the last 2 weeks the site has become tender, erythemic, and pus is draining. Patient states he called his doctor at the cancer treatment center and was sent to the emergency room. Patient states he has an appointment to remove this port on 08/25/2024 I have greeted and performed a focused initial assessment of this patient. A comprehensive ED assessment and evaluation of the patient, analysis of all test results, and completion of the medical decision making process will be conducted by additional ED providers. Related Data Home Medications ?Medication ?Instructions ?Recorded ?Confirmed atorvastatin 10 mg tablet 1 tab PO DAILY 01/13/22 04/08/23 levothyroxine 25 mcg tablet 75 mcg PO DAILY 01/13/22 04/08/23 loratadine 10 mg tablet 10 mg PO QDAY 04/08/23 04/08/23 (Allerclear) hpwxxqhy-ejim-zegmrcp gluconate 9 1 ml PO DAILY 04/08/23 04/08/23 mg iron/15 mL (15 mL) oral liquid (Centrum) oxybutynin chloride 10 mg 10 mg PO QDAY 04/08/23 04/08/23 tablet,extended release 24 hr Allergies Allergy/AdvReac Type Severity Reaction Status Date / Time No Known Allergies Allergy Verified 08/16/24 08:26 Review of Systems Review of Systems Narrative Review of Systems: GEN: No fever, no chills, no weight loss EYES: No discharge, no visual changes, no pain HEENT: No ear pain, no congestion, no sore throat PULM: No shortness of breath, no cough, no congestion CV: No chest pain, no dyspnea on exertion, no palpitations GI: No nausea, no vomiting, no diarrhea, no pain, no constipation : No frequency, no urgency, no dysuria MUSC/SKEL: No joint pain, no back pain SKIN: Infected PowerPort. No rash PSYCH: No hallucinations, no depression HEME/LYMPH: No easy bleeding or bruising tendencies NEURO: No weakness, no headache Past Medical History Past Medical History NEUROLOGIC: Negative Neurological Disorders, Seizures or Migraine CARDIAC: Positive Cardiac Disorders, Hypercholesterolemia and Hypertension; Negative Congestive Heart Failure RESPIRATORY: Negative Chronic Obstructive Pulmonary Disease (COPD), Asthma or Sleep Apnea GASTROINTESTINAL: Negative Gastrointestinal Disorders or Gastroesophageal Reflux Disease GENITOURINARY: Negative Genitourinary Disorders or Renal Disease MUSCULOSKELETAL: Positive Musculoskeletal Disorders ENT: Negative Cataracts or Glaucoma ENDOCRINE: Positive Endocrine Disorders and Hypothyroidism; Negative Diabetes Mellitus Type 1 or Diabetes Mellitus Type 2 HEMATOLOGIC: Positive Anemia; Negative Blood Disorders OTHER HISTORY: Positive Chemotherapy, Radiation Therapy and Cancer (Esophageal CA); Negative Blood Transfusions, Blood Transfusion Reaction or Anesthesia Reactions Family History FAMILY HISTORY: Positive Family Cancer; Negative Family Respiratory Disorders, Family Cardiac Disorders or Family Anesthesia Reaction Social History SMOKING STATUS: Never smoker ED Exam Narrative Physical exam: [General: Not in any acute distress Head normocephalic HEENT: Within acceptable limits Neck is supple nontender Chest equal chest rise nontender to palpation Respiratory: Clear to auscultation no wheezes crackles or rubs CV: Rate rhythm is regular no murmurs rubs or clicks Abdomen is flat, soft nontender no masses positive bowel sounds all 4 quadrants Back: No CVA tenderness no spinous process tenderness from cervical spine thoracic and lumbar spine Skin: PowerPort in the right anterior chest shows erythema without significant edema directly over the PowerPort itself, there is no streaking or expanding of the erythematous not warm to touch there is no exudative material expressing from the PowerPort site. Otherwise skin is intact no petechiae rash induration ulceration or crepitus Extremities: Moving all extremity against resistance cap refill less than 2 seconds neurosensory intact Neuro: Awake alert oriented x3 Glascow coma 15 no focal deficits] Course Quality Measures none Orders Category Date Time Status Blood Culture (Lab) Stat Lab 08/16/24 09:40 Received CBC Stat Lab 08/16/24 09:47 Completed CMP [Comprehensive Metabolic Panel] Stat Lab 08/16/24 09:47 Completed Lactate (Lactic Acid) Stat Lab 08/16/24 09:47 Completed Procalcitonin Stat Lab 08/16/24 09:47 Completed Vital Signs Vital signs: Vital Signs Temperature 99.2 F 08/16/24 08:42 Pulse Rate 102 H 08/16/24 08:42 Respiratory Rate 19 08/16/24 08:42 Blood Pressure 128/74 08/16/24 08:42 Pulse Oximetry (%) 95 08/16/24 08:42 Oxygen Delivery Method Room Air 08/16/24 08:42 MDM Patient data External records reviewed:: [facility] previous records Clinical information provided by:: patient and spouse Social determinants that could affect healthcare access:: none Patient has the following chronic illnesses:: Chemotherapy hypothyroidism How is presenting disease/condition affected by chronic disease/condition?: uneffected by Evaluation data The following diagnostics were reviewed and interpreted by me:: lab results Lab and/or radiology exams considered but not ordered:: CBC shows no leukocytosis anemia thrombocytopenia CMP shows a sodium 131 no other electrolyte imbalances no renal impairment transaminitis or T. bili elevation. Procalcitonin at 0.12 lactic acid at 1.5. Interpretation Summary: The patient is nontoxic appearing and not in any acute distress his was advised to take a picture of it once a day to determine if the redness is expanding, patient is currently on antibiotics prescribed by a provider. At this time there is no acute finding requires emergent intervention. advised advised to observe this and if there is a worsening of symptoms return to the emergency room for reevaluation. Medications Medications considered but not ordered:: None Medication administrations:: None Consultations Consultation(s) initiated? (list below): No Diagnosis Differential Diagnosis ED Complaint MDM: Infected venous port sepsis chest abscess Most likely diagnosis given after review of the tests above:: Infected PowerPort Admission Indicated Admission indicated?: not indicated Explain why admission is indicated or not indicated:: Stable for discharge Admission Request Was there a request for admission?: No Disposition Plan Disposition Plan: Discharge Discharge Attestation Discharge Attestation: The patient and all family members were given an opportunity to ask questions and understood the discharge instructions. Discharge instructions specifically effects, indications for sooner follow up or return to the emergency department, and the expected course of current diagnosis. Patient condition: Stable Medical Decision Making Differential Diagnosis Differential Diagnosis: Infected venous port sepsis chest abscess Lab Data 08/16/24 09:47 08/16/24 09:47 Labs: Lab Results 08/16/24 Range/Units 09:47 WBC 4.9 (3.8-10.6) Thou/mm3 RBC 4.80 (4.50-5.90) Miln/mm3 Hgb 14.4 (13.5-16.0) g/dL Hct 41.9 (41.0-53.0) % MCV 87 (80-100) fL MCH 30.0 (25.0-35.0) pg MCHC 34.4 (31.0-37.0) g/dl RDW Std Deviation 42.8 (35.1-43.9) fL Plt Count 140 D (140-440) Thou/mm3 Neut % (Auto) 77 (37-80) % Lymph % (Auto) 10 (10-50) % Union % (Auto) 12 (0-12) % Eos % (Auto) 0 (0-10) % Baso % (Auto) 1 (0-2.5) % Neut # (Auto) 3.8 (1.8-7.7) Thou/mm3 Lymph # (Auto) 0.5 L (1.0-4.8) Thou/mm3 Union # (Auto) 0.6 (0.0-0.8) Thou/mm3 Eos # (Auto) 0.0 (0.0-0.5) Thou/mm3 Baso # (Auto) 0.0 (0.0-0.2) Thou/mm3 Immature Gran # (Auto) 0.02 H (0.00-0.00) Thou/mm3 Absolute Nucleated RBC 0.00 (0.00-0.00) Thou/mm3 Immature Gran % 0 (0-0) % Nucleated RBC % 0 (0) /100 WBC Sodium 131 L (136-145) mMol/L Potassium 4.3 (3.4-5.1) mMol/L Chloride 100 (98-107) mMol/L Carbon Dioxide 22.8 (20.0-31.0) mMol/L Anion Gap 8 (7-16) BUN 13 (9-23) mg/dL Creatinine 1.1 (0.6-1.3) mg/dL Estim Creat Clear Calc Not Performed. eGFR > 60 (60 - ) See Note BUN/Creatinine Ratio 12 (12-20) Ratio Glucose 118 H (74-106) mg/dL Calculated Osmolality 263 L (275-295) Lactic Acid 1.5 (0.4-2.0) mMol/L Calcium 9.4 (8.3-10.6) mg/dL Corrected Calcium 9.4 (8.5-10.1) mg/dL Total Bilirubin 0.6 (0.3-1.2) mg/dL AST 30 (0-34) U/L ALT 32 (10-49) U/L Alkaline Phosphatase 94 (46-116) U/L Total Protein 7.8 (5.7-8.2) gm/dL Albumin 4.9 H (3.4-4.8) gm/dL Globulin 2.9 (2.3-3.5) gm/dL Albumin/Globulin Ratio 1.7 (1.2-2.2) Procalcitonin 0.12 (0.0-0.49) ng/ml Discharge Plan Plan Patient Disposition: HOME (Self Care) Patient condition on transfer: Stable Prescriptions/Referrals Prescriptions/Med Rec: No Action atorvastatin 10 mg tablet 1 tab PO DAILY levothyroxine 25 mcg tablet 75 mcg PO DAILY oxybutynin chloride 10 mg Tablet Extended Release 24hr 10 mg PO QDAY loratadine [Allerclear] 10 mg Tablet 10 mg PO QDAY [id number]-[id number] gluconate [Centrum] 9 mg iron/ 15 mL (15 mL) Liquid 1 ml PO DAILY Referrals: Ramesh Beasley MD [Primary Care Provider] - In 1 week Problem List Clinical Impression: Infected venous access port Patient/Caregiver Discharge Instructions Other Activity Instructions:: Take a picture of the site once a day for the next week, if there is a worsening of symptoms or the patient spikes a fever return immediately to the emergency room for reevaluation. Print Language: Luxembourgish Stand Alone Forms: Lilia Award Info., Patient Portal Info Letter PA/JORGE Supervising Physician PA/JORGE Supervising Physician: Gustavo Mason ENP
[2024-08-16 13:07] VITALS: BP 150/78; PULSE 96; RESP 18; TEMP 37.9; O2SAT 96
[2024-08-16 13:17] VITALS: BP 150/78; PULSE 95; RESP 18; TEMP 37.9; O2SAT 97
== END 2024-08-16 13:17 | disposition home or self-care (01) ==
PROVIDERS: Nurse Practitioner Family; Emergency Provider Emergency Medicine; PCP Internal Medicine
DX: T80.219A Unspecified infection due to central venous catheter, initial encounter (principal); C15.9 Malignant neoplasm of esophagus, unspecified; E78.5 Hyperlipidemia, unspecified
CPT/HCPCS: 36415; 80053; 83605; 84145; 85025; 87040; 99283

== ENCOUNTER 2024-08-17 15:42 | Inpatient (IN) | payer MEDICARE, BC, SELFPAY ==
[2024-08-17 15:49] VITALS: BP 122/84; PULSE 108; RESP 18; TEMP 37.1; O2SAT 95
--- NOTE | 2024-08-17 16:07 | PD.EDRME ---
Rapid Medical Screening Exam [facility] Arrival date/time: 08/17/24 15:42 78-year-old male with a history of hyperlipidemia, esophageal cancer presents to the emergency room with a chief complaint of an infection to his chemotherapy port on the right upper chest. Patient states he has been having fevers and chills at his home and when he checked his oral temperature it was 102 ?F. Patient states he was instructed to return to the emergency room if he develops a fever or if the symptoms got worse. Patient has a scheduled appointment to remove this catheter on 08/25/[address] Arroyo. at bedside states she is having difficulty taking care of her . Patient received Tylenol today at 2:30 PM. I have greeted and performed a focused initial assessment of this patient. A comprehensive ED assessment and evaluation of the patient, analysis of all test results, and completion of the medical decision making process will be conducted by additional ED providers. Chief Complaint: Fever Time Seen by Provider: 08/17/24 15:46 Vital signs: Vital Signs Temperature 98.8 F 08/17/24 15:49 Pulse Rate 108 H 08/17/24 15:49 Respiratory Rate 18 08/17/24 15:49 Blood Pressure 122/84 08/17/24 15:49 Pulse Oximetry (%) 95 08/17/24 15:49 Oxygen Delivery Method Room Air 08/17/24 15:49 Vital signs reviewed by provider: Yes
[2024-08-17 16:36] LABS: Lactate (Lactic Acid) 2.3 mMol/L (0.4-2.0)
[2024-08-17 16:38] LABS: Basophils % (Auto) 1 % (0-2.5); Eosinophils % (Auto) 0 % (0-10); Hematocrit 43.2 % (41.0-53.0); Hemoglobin 14.7 g/dL (13.5-16.0); Immature Granulocytes % (Auto) 1 % (0-0); Immature Granulocytes Auto 0.02 Thou/mm3 (0.00-0.00); Lymphocytes # (Auto) 0.2 Thou/mm3 (1.0-4.8); Lymphocytes % (Auto) 6 % (10-50); Mean Corpuscular Hemoglobin 30.1 pg (25.0-35.0); Mean Corpuscular Volume 89 fL (80-100); Monocytes # (Auto) 0.1 Thou/mm3 (0.0-0.8); Monocytes % (Auto) 2 % (0-12); Neutrophils # (Auto) 2.6 Thou/mm3 (1.8-7.7); Neutrophils % (Auto) 90 % (37-80); Nucleated Red Blood Cell % 0 /100 WBC (0); Platelet Count 92 Thou/mm3 (140-440); RDW Standard Deviation 43.1 fL (35.1-43.9); Red Blood Count 4.88 Miln/mm3 (4.50-5.90)
[2024-08-17 16:41] LABS: White Blood Count 2.9 Thou/mm3 (3.8-10.6)
[2024-08-17 17:06] LABS: Alanine Aminotransferase 276 U/L (10-49); Albumin, Serum 4.8 gm/dL (3.4-4.8); Albumin/Globulin Ratio 1.5 (1.2-2.2); Alkaline Phosphatase 120 U/L (46-116); Anion Gap 13 (7-16); Aspartate Amino Transferase 376 U/L (0-34); BUN/Creatinine Ratio 12 Ratio (12-20); Blood Urea Nitrogen 15 mg/dL (9-23); Calcium 9.3 mg/dL (8.3-10.6); Calcium (Corrected) 9.3 mg/dL (8.5-10.1); Chloride 95 mMol/L (98-107); Creatinine (Component) 1.3 mg/dL (0.6-1.3); Globulin 3.1 gm/dL (2.3-3.5); Glucose 176 mg/dL (74-106); Osmolality,Calculated 263 (275-295); Potassium 4.1 mMol/L (3.4-5.1); Procalcitonin 1.01 ng/ml (0.0-0.49); Sodium 129 mMol/L (136-145); Total Protein 7.9 gm/dL (5.7-8.2); eGFR 57 See Note
[2024-08-17 17:37] LABS: Collection Type, Urine Clean Catch; Squamous Epithelial Cell,Urine 0 /hpf (0-5)
[2024-08-17 18:31] LABS: Bilirubin,Urine Negative (Negative); Blood,Urine Trace (Negative); Clarity,Urine Clear (Clear/Hazy); Color,Urine Yellow (Lt Yel-Yel); Glucose, Urine Negative (Negative); Ketones,Urine Negative (Negative); Leukocyte Esterase,Urine Negative (Negative); Nitrite,Urine Negative (Negative); PH,Urine 6.5 (5.0-7.0); Protein,Urine 1+ (Neg - Trace); RBC,Urine 2 /hpf (0-3); Urobilinogen,Urine Negative mg/dL (0.0-1.0); WBC,Urine < 1 /hpf (0-5)
[2024-08-17 19:29] LABS: Reflex Lactate? Y
[2024-08-17 19:52] VITALS: BP 116/65; PULSE 109; RESP 19; TEMP 37; O2SAT 96
[2024-08-17 20:05] LABS: Lactic Acid, 3 HR 1.6 mMol/L (0.4-2.0)
[2024-08-18] VITALS (17 sets, daily range): BP systolic 72–138; BP diastolic 41–58; PULSE 70–102; RESP 14–95; TEMP 36.3–38.4; O2SAT 93–99; BMI 23.6
--- NOTE | 2024-08-18 02:08 | EDNOTE_ITS ---
ED Fever RME/HPI General Chief Complaint: Fever Stated Complaint: R) PORT INFECTED; SPIKED TEMP 103.00 Time Seen by Provider: 08/17/24 15:46 Arrival date/time: 08/17/24 15:42 Limitations: no limitations RME / HPI RME / HPI Narrative: 08/17/24 15:42 78-year-old male with a history of hyperlipidemia, esophageal cancer presents to the emergency room with a chief complaint of an infection to his chemotherapy port on the right upper chest. Patient states he has been having fevers and chills at his home and when he checked his oral temperature it was 102 ?F. Patient states he was instructed to return to the emergency room if he develops a fever or if the symptoms got worse. Patient has a scheduled appointment to remove this catheter on 08/25/[address] Arroyo. at bedside states she is having difficulty taking care of her . Patient received Tylenol today at 2:30 PM. I have greeted and performed a focused initial assessment of this patient. A comprehensive ED assessment and evaluation of the patient, analysis of all test results, and completion of the medical decision making process will be conducted by additional ED providers. -------- Dr. Cespedes's Main ED Evaluation: 78yo male with a history of esophageal CA, HTN, HLD presents to the ED for a chief complaint of a fever. states the patient has been dealing with an infection to his chemotherapy port for the last 3 weeks, reporting Dr. Arroyo is supposed to remove it on 08/25/24. She states she was concerned due to the patient having a fever of 102 at home, so she brought him in for evaluation. Denies any abdominal pain, rashes or any other associated symptoms. Patient just finished a 10-day course of Bactrim. Related Data Home Medications ?Medication ?Instructions ?Recorded ?Confirmed atorvastatin 10 mg tablet 1 tab PO DAILY 01/13/2206/30 levothyroxine 25 mcg tablet 75 mcg PO DAILY 01/13/22 1 06/08/22 loratadine 10 mg tablet 10 mg PO QDAY 04/08/2304/08 (Allerclear) qwckubqc-yzph-kevyghr gluconate 9 1 ml PO DAILY 04/08/23 mg iron/15 mL (15 mL) oral liquid (Centrum) oxybutynin chloride 10 mg 10 mg PO QDAY 04/08/2304/08 tablet,extended release 24 hr Allergies Allergy/AdvReac Type Severity Reaction Status Date / Time No Known Allergies Allergy Verified 08/17/24 15:44 Review of Systems Review of Systems Systems Reviewed: All systems reviewed, normal except as documented Past Medical History Past Medical History NEUROLOGIC: Negative Neurological Disorders, Seizures or Migraine CARDIAC: Positive Cardiac Disorders, Hypercholesterolemia and Hypertension; Negative Congestive Heart Failure RESPIRATORY: Negative Chronic Obstructive Pulmonary Disease (COPD), Asthma or Sleep Apnea GASTROINTESTINAL: Negative Gastrointestinal Disorders or Gastroesophageal Reflux Disease GENITOURINARY: Negative Genitourinary Disorders or Renal Disease MUSCULOSKELETAL: Positive Musculoskeletal Disorders ENT: Negative Cataracts or Glaucoma ENDOCRINE: Positive Endocrine Disorders and Hypothyroidism; Negative Diabetes Mellitus Type 1 or Diabetes Mellitus Type 2 HEMATOLOGIC: Positive Anemia; Negative Blood Disorders OTHER HISTORY: Positive Chemotherapy, Radiation Therapy and Cancer (Esophageal CA); Negative Blood Transfusions, Blood Transfusion Reaction or Anesthesia Reactions Family History FAMILY HISTORY: Positive Family Cancer; Negative Family Respiratory Disorders, Family Cardiac Disorders or Family Anesthesia Reaction Social History SMOKING STATUS: Never smoker Physical Exam General Limitations: no limitations General appearance: alert and in no apparent distress Head Head exam: atraumatic Eye Eye exam: Present normal appearance, PERRL and EOMI ENT ENT exam: Present normal exam, normal oropharynx and mucous membranes moist Neck Neck exam: Present normal inspection, full ROM and trachea midline Chest Chest inspection: Present symmetric chest wall rise and other (right upper chest wall port with a pimple on top of it, nonexpressible discharge with minimal surrounding erythema, the outer aspect of the port is warm to touch) Respiratory Respiratory exam: Present normal lung sounds bilaterally Cardiovascular Cardiovascular exam: Present regular rate, normal rhythm and normal heart sounds Abdominal Exam Abdominal exam: Present soft and normal bowel sounds Extremities Exam Extremities exam: Present normal inspection and full ROM Back Exam Back exam: Present normal inspection and full ROM Neurological Exam Neurological exam: Present alert, oriented X3 and CN II-XII intact Psychiatric Psychiatric exam: Present normal affect and normal mood Skin Skin exam: Present warm, dry, intact and normal color ED Exam General Limitations: Present no limitations General appearance: Present alert and in no apparent distress Head Head exam: Present atraumatic Eye Eye exam: Present normal appearance, PERRL and EOMI ENT ENT exam: Present normal exam, normal oropharynx and mucous membranes moist Neck Neck exam: Present normal inspection, full ROM and trachea midline Chest Chest inspection: Present symmetric chest wall rise and other (right upper chest wall port with a pimple on top of it, nonexpressible discharge with minimal surrounding erythema, the outer aspect of the port is warm to touch) Respiratory Respiratory exam: Present normal lung sounds bilaterally Cardiovascular Cardiovascular exam: Present regular rate, normal rhythm and normal heart sounds Abdominal Exam Abdominal exam: Present soft and normal bowel sounds Extremities Exam Extremities exam: Present normal inspection and full ROM Back Exam Back exam: Present normal inspection and full ROM Neurological Exam Neurological exam: Present alert, oriented X3 and CN II-XII intact Psychiatric Psychiatric exam: Present normal affect and normal mood Skin Skin exam: Present warm, dry, intact and normal color Course Quality Measures Possible source: skin/soft tissue Blood cultures ordered: yes Antibiotic ordered: Yes Pertinent labs: 08/17/24 08/17/24 16:15 19:49 Lactic Acid 2.3 H mMol/L 1.6 mMol/L (0.4-2.0) (0.4-2.0) Procalcitonin 1.01 H ng/ml (0.0-0.49) sepsis Orders Category Date Time Status Blood Culture (Lab) Stat Lab 08/17/24 16:00 Received CBC Stat Lab 08/17/24 16:15 Completed CMP [Comprehensive Metabolic Panel] Stat Lab 08/17/24 16:15 Completed Lactate (Lactic Acid) Stat Lab 08/17/24 16:15 Completed Lactic Acid, 3 HR Stat Lab 08/17/24 19:49 Completed Procalcitonin Stat Lab 08/17/24 16:15 Completed UA [Urinalysis] Stat Lab 08/17/24 17:00 Completed Urine Culture Stat Lab 08/17/24 17:00 Received Vital Signs Vital signs: Vital Signs Temperature 98.8 F 08/17/24 15:49 Pulse Rate 108 H 08/17/24 15:49 Respiratory Rate 18 08/17/24 15:49 Blood Pressure 122/84 08/17/24 15:49 Pulse Oximetry (%) 95 08/17/24 15:49 Oxygen Delivery Method Room Air 08/17/24 15:49 Fever Patient data External records reviewed:: [facility] previous records (Per chart review, patient was seen here on 08/16/24 for an infected venous access port.) Clinical information provided by:: spouse Social determinants that could affect healthcare access:: none Patient has the following chronic illnesses:: esophageal CA, HTN, HLD How is presenting disease/condition affected by chronic disease/condition?: exacerbated by Evaluation data The following diagnostics were reviewed and interpreted by me:: lab results Lab and/or radiology exams considered but not ordered:: none Interpretation Summary: WBC count is low at 2.9, Platelets are 92, Sodium is 129, Glucose is 176, Lactic Acid is normal, Procalcitonin is 1.01, UA is unremarkable, according to my interpretation. Medications / Prescriptions Medications or Prescriptions considered but not ordered:: none Medication administrations:: Medication Administration History Acetaminophen (Acetaminophen 325 Mg Tablet) 650 mg PO Q6H PRN PRN Reason: Fever >100 or pain 1-3 Stop: 09/17/24 04:52 Hydrocodone Bitart/Acetaminophen (Hydrocodone/Apap 5/325 Tablet) 1 tab PO Q4HR PRN PRN Reason: PAIN SCALE 4-6 (Moderate Stop: 08/23/24 04:52 Aspirin (Aspirin Ec 81 Mg Tabec) 81 mg PO QDAY JOB Stop: 09/17/24 08:59 Atorvastatin Calcium (Atorvastatin Calcium 10 Mg Tablet) 10 mg PO HS JOB Stop: 09/17/24 20:59 Heparin Sodium (Porcine) (Heparin Sod Inj 5000 Unit/Ml Vial) 5,000 unit SC Q12H JOB Stop: 09/01/24 05:14 Piperacillin Sod/Tazobactam (Sod 4.5 gm/ Sodium Chloride) 100 mls @ 200 mls/hr IV Q8HR JOB Stop: 08/25/24 05:59 Sodium Chloride (Ns) 1,000 mls @ 999 mls/hr IV .Q1H1M ONE Stop: 08/18/24 06:00 Piperacillin Sod/Tazobactam (Sod 4.5 gm/ Sodium Chloride) 100 mls @ 200 mls/hr IV X1 ONE Stop: 08/18/24 06:29 Levothyroxine Sodium (Levothyroxine Sodium 100 Mcg Tablet) 100 mcg PO QDAY JOB Stop: 09/17/24 08:59 Ondansetron HCl (Ondansetron Inj 2 Mg/Ml Inj 2 Ml) 4 mg IV Q6H PRN; Protocol PRN Reason: NAUSEA OR VOMITING Stop: 09/17/24 04:52 Oxybutynin Chloride (Oxybutynin Chlor Xl 5 Mg Alexander) 10 mg PO QDAY [facility] Stop: 09/17/24 08:59 Pantoprazole Sodium (Pantoprazole Inj 40 Mg Vial) 40 mg IVP QDAY JOB Stop: 09/17/24 08:59 Pharmacy Consult (Vancomycin Pharmacy To Dose 1 Each Each) 1 each IV QDAY JOB Stop: 09/17/24 08:59 Discontinued Medications Heparin Sodium (Porcine) (Heparin Sod Inj 5000 Unit/Ml Vial) 5,000 unit SC Q12H [facility] Stop: 09/01/24 08:59 see above Consultations Consultation(s) initiated? (list below): Yes Consultation #1 (Physician, Specialty, Details): Discussed case with [Dr. Hernandez, attending Dr. Aguilera] from Hospitalist service regarding admission. Discussed patients ED course, exam findings, labs, and radiology results. The Hospitalist [agrees] to accept the patient for admission. Time: 02:40 Diagnosis Fever Differential Diagnosis: cellulitis, sepsis and other (chemotherapy port infection) Most likely diagnosis given after review of the tests above:: see clinical impression below Admission Indicated Admission indicated?: indicated Admission Request Was there a request for admission?: Yes Admission Attestation Admission request attestation: Discussed case with [] from Hospitalist service regarding admission. Discussed patients ED course, exam findings, labs, and radiology results. The Hospitalist [agrees,declines] to accept the patient for admission. Disposition Plan Disposition Plan: Admit Discharge Plan Plan Patient Disposition: Admit Acute Care w/in Hospital Problem List Clinical Impression: Infection due to Port-A-Cath, Leukopenia, Fever
[2024-08-18] MEDS: ACETAMINOPHEN 325 MG TABLET 650 MG PO (05:51)
[2024-08-18] MEDS: PIPER/TAZO INJ 4.5 GM in SODIUM CHLORIDE 0.9% (POP) 100 ML IV ×3 (05:51→21:25)
[2024-08-18 05:53] LABS: Basophils % (Auto) 0 % (0-2.5); Eosinophils % (Auto) 0 % (0-10); Hemoglobin 14.1 g/dL (13.5-16.0); Immature Granulocytes % (Auto) 1 % (0-0); Immature Granulocytes Auto 0.02 Thou/mm3 (0.00-0.00); Lymphocytes # (Auto) 0.5 Thou/mm3 (1.0-4.8); Lymphocytes % (Auto) 19 % (10-50); Mean Corpuscular HGB Conc 35.3 g/dl (31.0-37.0); Mean Corpuscular Hemoglobin 30.7 pg (25.0-35.0); Mean Corpuscular Volume 87 fL (80-100); Monocytes # (Auto) 0.2 Thou/mm3 (0.0-0.8); Monocytes % (Auto) 7 % (0-12); Neutrophils % (Auto) 73 % (37-80); Nucleated Red Blood Cell % 0 /100 WBC (0); Platelet Count 80 Thou/mm3 (140-440); RDW Standard Deviation 41.7 fL (35.1-43.9); Red Blood Count 4.59 Miln/mm3 (4.50-5.90)
[2024-08-18] MEDS: SODIUM CHLORIDE 0.9% 1000 ML 1,000 ML 999 ML IV (05:57)
[2024-08-18 06:00] LABS: White Blood Count 2.7 Thou/mm3 (3.8-10.6)
[2024-08-18 06:10] LABS: INR 1.3 (0.9-1.3); Partial Thromboplastin Time 35.6 Seconds (22.0-36.0); Prothrombin Time 13.6 Seconds (9.0-12.2)
[2024-08-18 06:22] LABS: Alanine Aminotransferase 266 U/L (10-49); Albumin, Serum 4.6 gm/dL (3.4-4.8); Albumin/Globulin Ratio 1.8 (1.2-2.2); Alkaline Phosphatase 120 U/L (46-116); Anion Gap 13 (7-16); Aspartate Amino Transferase 236 U/L (0-34); BUN/Creatinine Ratio 18 Ratio (12-20); Bilirubin,Total 0.9 mg/dL (0.3-1.2); Blood Urea Nitrogen 20 mg/dL (9-23); Carbon Dioxide 20.6 mMol/L (20.0-31.0); Chloride 96 mMol/L (98-107); Cholesterol 96 mg/dL (132-200); Creatinine (Component) 1.1 mg/dL (0.6-1.3); Globulin 2.6 gm/dL (2.3-3.5); Glucose 134 mg/dL (74-106); HDL Cholesterol 32 mg/dL (40-60); LDL Cholesterol,Calculated 36 mg/dL (0-130); Magnesium 2.3 mg/dL (1.6-2.6); Osmolality,Calculated 265 (275-295); Phosphorous 2.5 mg/dL (2.4-5.1); Potassium 4.2 mMol/L (3.4-5.1); Sodium 130 mMol/L (136-145); Total Protein 7.2 gm/dL (5.7-8.2); Triglycerides 140 mg/dL (30-150); eGFR > 60 See Note
--- NOTE | 2024-08-18 06:23 | ESHP_ITS ---
<Statement entered by Rahul Aguilera MD - 08/19/24 04:35> I reviewed above note and agree with findings and plans. I have also personally examined the patient with medicine team and went over assessment and plan with medical team including internal medicine veterinary technician and resident physician. 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 Patient reports that he has been having a port cath since 2022 for cancer treatment for esophageal cancer. He notes that over the past couple of weeks that he has been seeing redness over his port cath that has been worsening. They say that he had drained some pus about 2-3 times. He went to go see his primary care doctor who gave him a 10-day course of Bactrim and was also recommended to see general surgery. He says that he improved slightly with the Bactrim. General surgeon Dr. Mcbride recommended patient to get cath removal and was supposed to be done on August 25. On Thursday he noticed that he started to have a fever and took Tylenol, however the next day he decided to go to the ED. While he was in the ED he was worked up for his infection, and was told that if his fever returns to come back to the ED. He took Tylenol when he got home and his fever got better. Yesterday he measured his temperature and it was up to 103 degrees and it was not improving with Tylenol and therefore decided to come get evaluated the ED. He reports seeing Dr. Lynn, was a thoracic surgeon at [facility] we did his procedure in 2022. He also seen Dr. Breen and now sees Dr. Cisneros. His last chemotherapy treatment was last month and he gets it once a month. He denies any recent travel. He also says that he takes Synthroid for radiation-induced hypothyroidism. He denies no recent weight loss. He gets PET scans from his [facility] doctor every 6 months. No other complaints at this time ED course: Patient arrived to the ED with a temperature of 99, heart rate of 108, respiratory rate 18, blood pressure 122/84, saturating 95% on room air. He was worked up and found to have sodium of 129, potassium 4.1, BUN/creatinine 50 and 1.3, glucose 176, WBC of 2.9, hemoglobin 14.7, lactate 1.6, Pro-Jairo 1.0, osmolarity 263, AST ALT 376 and 276, ALP 120. Medicine was consulted and patient was admitted to the floors. 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 He says that he used to drink a lot when he was younger, 2-3 beers every day and up to 12 beers on the weekends for several years. No smoking history no oral or IV drug use. He currently does not work. Review of Systems Review of Systems Narrative Review of Systems: Constitutional: Positive fever, positive chills, no fatigue, weakness, weight loss HEENT: No eye pain, vision loss, ear pain, hearing loss, dysphagia, Cardiovascular: No chest pain, palpitations, edema, pain with walking Respiratory: No cough, shortness of breath, wheezing GI: No NVD, abdominal pain, constipation, blood in stool, loss of appetite, heartburn Extremities: No presence of pitting edema MSK: No back pain, joint pain, joint swelling Neuro: No dizziness, numbness, weakness, headaches, seizures, tremors Psych: No anxiety, depression Exam Vital Signs Temp Pulse Resp BP Pulse Ox O2 Del Method 101.2 F H 86 19 124/56 L 99 Room Air 08/18/24 05:51 08/18/24 05:16 08/18/24 05:16 08/18/24 05:16 08/18/24 05:16 08/18/24 05:16 Narrative Exam General: AAOx3, NAD, wearing beanie, some redness seen on face bilaterally may be resembling rosacea, frail elderly man, speaks some Hungarian HEENT: Moist mucous membranes, conjunctiva clear, EOMI, PERRLA, Cardiovascular: S1, S2, radial pulses +2 bilat, RRR, right port cath seen some erythema around it no active pus or discharge Pulmonary: CTAB bilat no cough, no wheezing GI: No tenderness to light or deep palpitation, no guarding, rigidity, rebound tenderness or distension Extremities: No presence of trace or pitting edema in lower extremities bilaterally, dorsalis pedis pulses +2 bilaterally Neuro: AAOx3, no focal motor or sensory deficits in the UE or LE bilat Psych: Good judgement, thought and behavior Results: Labs 08/18/24 05:20 08/18/24 05:20 Labs: Short CBC 08/17/24 08/18/24 Range/Units 16:15 05:20 WBC 2.9 L D 2.7 L (3.8-10.6) Thou/mm3 Hgb 14.7 14.1 (13.5-16.0) g/dL Hct 43.2 40.0 L (41.0-53.0) % Plt Count 92 L D 80 L (140-440) Thou/mm3 BMP 08/17/24 08/18/24 16:15 05:20 Sodium 129 L 130 L Potassium 4.1 4.2 Chloride 95 L 96 L Carbon Dioxide 21.0 20.6 BUN 15 20 Creatinine 1.3 1.1 Glucose 176 H D 134 H Calcium 9.3 9.0 Liver Function 08/17/24 08/18/24 Range/Units 16:15 05:20 Total Bilirubin 1.0 0.9 (0.3-1.2) mg/dL AST 376 H 236 H (0-34) U/L ALT 276 H 266 H (10-49) U/L Alkaline Phosphatase 120 H D 120 H (46-116) U/L Albumin 4.8 4.6 (3.4-4.8) gm/dL Urine 08/17/24 Range/Units 17:00 Urine Color Yellow (Lt Yel-Yel) Urine Clarity Clear (Clear/Hazy) Urine pH 6.5 (5.0-7.0) Ur Specific I[place] 1.020 (1.001-1.035) Urine Protein 1+ A (Neg - Trace) Urine Glucose (UA) Negative (Negative) Quality Measures Quality Measures sepsis Current suspected stage: sepsis Possible source: skin/soft tissue Blood cultures ordered: yes Antibiotic ordered: Yes Advance care planning discussed with:: patient Medications Home Medications and Allergies Home Medications ?Medication ?Instructions ?Recorded ?Confirmed ?Type atorvastatin 10 mg tablet 1 tab PO DAILY 01/13/22 11/06/30 History levothyroxine 25 mcg tablet 75 mcg PO DAILY 01/13/22 1 06/08/22 History loratadine 10 mg tablet 10 mg PO QDAY 04/08/2304/08 History (Allergreyar) [id number] gluconate 9 1 ml PO DAILY 04/08/23 History mg iron/15 mL (15 mL) oral liquid (Centrum) oxybutynin chloride 10 mg 10 mg PO QDAY 04/08/2304/08 History tablet,extended release 24 hr Allergies Allergy/AdvReac Type Severity Reaction Status Date / Time No Known Allergies Allergy Verified 08/17/24 15:44 Visit Medications Acetaminophen (Acetaminophen 325 Mg Tablet) 650 mg PO Q6H PRN PRN Reason: Fever >100 or pain 1-3 Stop: 09/17/24 04:52 Last Admin: 08/18/24 05:51 Dose: 650 mg Hydrocodone Bitart/Acetaminophen (Hydrocodone/Apap 5/325 Tablet) 1 tab PO Q4HR PRN PRN Reason: PAIN SCALE 4-6 (Moderate Stop: 08/23/24 04:52 Aspirin (Aspirin Ec 81 Mg Tabec) 81 mg PO QDAY JOB Stop: 09/17/24 08:59 Atorvastatin Calcium (Atorvastatin Calcium 10 Mg Tablet) 10 mg PO HS JOB Stop: 09/17/24 20:59 Heparin Sodium (Porcine) (Heparin Sod Inj 5000 Unit/Ml Vial) 5,000 unit SC Q12H JOB Stop: 09/01/24 05:14 Piperacillin Sod/Tazobactam (Sod 4.5 gm/ Sodium Chloride) 100 mls @ 200 mls/hr IV Q8HR JOB Stop: 08/25/24 05:59 Piperacillin Sod/Tazobactam (Sod 4.5 gm/ Sodium Chloride) 100 mls @ 200 mls/hr IV X1 ONE Stop: 08/18/24 06:29 Last Admin: 08/18/24 05:51 Dose: 200 mls/hr Vancomycin/Sodium Chloride (Vancomycin/Ns 1 Gm Ivpb) 200 mls @ 120 mls/hr IV X1 ONE Stop: 08/18/24 07:24 Levothyroxine Sodium (Levothyroxine Sodium 100 Mcg Tablet) 100 mcg PO QDAY JOB Stop: 09/17/24 08:59 Ondansetron HCl (Ondansetron Inj 2 Mg/Ml Inj 2 Ml) 4 mg IV Q6H PRN; Protocol PRN Reason: NAUSEA OR VOMITING Stop: 09/17/24 04:52 Oxybutynin Chloride (Oxybutynin Chlor Xl 5 Mg Alexander) 10 mg PO QDAY JOB Stop: 09/17/24 08:59 Pantoprazole Sodium (Pantoprazole Inj 40 Mg Vial) 40 mg IVP QDAY JOB Stop: 09/17/24 08:59 Pharmacy Consult (Vancomycin Pharmacy To Dose 1 Each Each) 1 each IV QDAY JOB Stop: 09/17/24 08:59 Discontinued Medications Heparin Sodium (Porcine) (Heparin Sod Inj 5000 Unit/Ml Vial) 5,000 unit SC Q12H JOB Stop: 09/01/24 08:59 Sodium Chloride (Ns) 1,000 mls @ 999 mls/hr IV .Q1H1M ONE Stop: 08/18/24 06:00 Last Admin: 08/18/24 05:57 Dose: 999 mls/hr Assessment & Plan Plan Assessment Atif is 78 y/o male with PMHx 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 #Sepsis secondary to #CLABSI Fever up to 103, neutropenic Lactate 1.6 qSOFA: 0 points 2 out of 4 SIRS criteria Sepsis due to 2/4 SIRS criteria Given 1 L bolus Patient has high risk for CLABSI due to port cath, risk for MRSA anaerobic and other infections including Pseudomonas which will require broad antibiotic coverage Plan: ? Zosyn 4.5 mg Q8H IV ? Pharmacy to dose vancomycin ? Follow-up urine cultures ? Follow-up blood cultures ? Follow-up MRSA nares ? Consider general surgery consult for removal of catheter #Elevated Transaminases AST 376, ALT 276 Could be related due to infection Plan: ? Follow-up hepatitis panel ? Liver ultrasound ? Limit hepatotoxic agents #History of moderately differentiated invasive squamous cell carcinoma of the esophagus #Leukopenia WBC 2.9; Neutrophils 90% Plan: ? Neutropenic precautions ? Consider Oncology consult #Radiation-induced hypothyroidism Recent TSH in July 2024 unremarkable Plan: ? Resumed home Synthroid 100 mcg #History of CAD #History of HLD Plan: ? Resumed home aspirin ? Holding home Lipitor in setting of elevated transaminases ? Follow-up lipid panel. We #Health Maintenance Disposition: MedSurg DVT prophylaxis: Heparin every 12 hours GI prophylaxis: Protonix Diet: Pending swallow eval CODE STATUS: DNR/DNI Patient seen and care discussed with my attending physician, Dr. Willy Jones, PGY-1
--- NOTE | 2024-08-18 06:26 | XR_ITS ---
Examination: Abdomen sonogram, Limited Date and time of exam: August 30 0738 hrs. Indications: Elevated liver enzymes on laboratory examination August 18, 2024 Technique: Real-time marie scale transabdominal sonographic images of the upper abdomen obtained. Findings: Cholelithiasis, negative for cholecystitis. Common bile duct 0.2 cm. Pancreatic head 2.3 cm. Liver 13.5 cm, right infiltration. Normal hepatopedal portal venous flow. Patent IVC. Impression: Cholelithiasis
[2024-08-18 06:50] LABS: Glucose Estimated Average 123 mg/dL (80-131); Hemoglobin A1C 5.9 % Hgb (4.8-6.0)
[2024-08-18] MEDS: VANCOMYCIN/NS 1 GM IVPB 200 ML IV ×2 (07:27→22:16)
[2024-08-18 07:37] LABS: Hepatitis A Antibody IgM Non Reactive (Non React); Hepatitis B Core Antibody IgM Non Reactive (Non React); Hepatitis B Surface Antigen Non Reactive (Non React); Hepatitis C Antibody Non Reactive (Non React)
[2024-08-18] MEDS: PANTOPRAZOLE INJ 40 MG VIAL IVP (09:00)
[2024-08-18] MEDS: OXYBUTYNIN CHLOR XL 5 MG TABER 10 MG PO (09:32)
[2024-08-18] MEDS: ASPIRIN EC 81 MG TABEC PO (09:33)
[2024-08-18] MEDS: LEVOTHYROXINE SODIUM 100 MCG TABLET PO (09:33)
[2024-08-18] MEDS: HEPARIN SOD INJ 5000 UNIT/ML VIAL SC ×2 (09:33→21:32)
--- NOTE | 2024-08-18 10:45 | PCS.ST ---
Swallow evaluation completed. Diet downgraded to dysphagia 3. See report for details. ST to follow.
--- NOTE | 2024-08-18 11:18 | XR_ITS ---
EXAMINATION: XR chest 1V portable ORDERING PROVIDER: Gabe Flood MD HISTORY: suspected LRTI TECHNIQUE: Single portable AP radiograph of the chest. COMPARISON: 07/04/2022, chest radiographs. FINDINGS: Lines and Tubes: Right chest wall Port-A-Cath with tip projecting over the expected region of the superior cavoatrial junction. Lungs: No consolidation. Mild increased diffuse reticular markings. Mild bronchial wall thickening. Pleura: No pneumothorax or pleural effusion. Cardiomediastinal Silhouette: Surgical kristen project over the mediastinal silhouette. Soft Tissues/Bones: Diffuse osteopenia. IMPRESSION: Mild diffuse increased reticular markings, which can be seen with viral and/or atypical pneumonia.
--- NOTE | 2024-08-18 11:36 | ESPR_ITS ---
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 Patient reports that he has been having a port cath since 2022 for cancer treatment for esophageal cancer. He notes that over the past couple of weeks that he has been seeing redness over his port cath that has been worsening. They say that he had drained some pus about 2-3 times. He went to go see his primary care doctor who gave him a 10-day course of Bactrim and was also recommended to see general surgery. He says that he improved slightly with the Bactrim. General surgeon Dr. Mcbride recommended patient to get cath removal and was supposed to be done on August 25. On Thursday he noticed that he started to have a fever and took Tylenol, however the next day he decided to go to the ED. While he was in the ED he was worked up for his infection, and was told that if his fever returns to come back to the ED. He took Tylenol when he got home and his fever got better. Yesterday he measured his temperature and it was up to 103 degrees and it was not improving with Tylenol and therefore decided to come get evaluated the ED. He reports seeing Dr. Lynn, was a thoracic surgeon at [facility] we did his procedure in 2022. He also seen Dr. Breen and now sees Dr. Cisneros. His last chemotherapy treatment was last month and he gets it once a month. He denies any recent travel. He also says that he takes Synthroid for radiation-induced hypothyroidism. He denies no recent weight loss. He gets PET scans from his [facility] doctor every 6 months. No other complaints at this time ED course: Patient arrived to the ED with a temperature of 99, heart rate of 108, respiratory rate 18, blood pressure 122/84, saturating 95% on room air. He was worked up and found to have sodium of 129, potassium 4.1, BUN/creatinine 50 and 1.3, glucose 176, WBC of 2.9, hemoglobin 14.7, lactate 1.6, Pro-Jairo 1.0, osmolarity 263, AST ALT 376 and 276, ALP 120. Medicine was consulted and patient was admitted to the floors. 08/19/2024 took over care from hospitalist team as he is Dr. Beasley's primary patient patient was seen and examined bedside. Denies any other complaints. Reported no further febrile episodes. Supposed to get chemotherapy as of 08/17/2024 Vitals are stable. On physical examination, redness is noted at the site of port catheter Labs show WBC 2.7 but ANC does not show severe neutropenia, platelets 80, sodium 130, AST 236, ALT 266 Chest x-ray was ordered, influenza A and B is ordered Consulted Dr. Mcbride and recommended removal of port catheter today if possible Will continue current management Exam Vital Signs Temp Pulse Resp BP Pulse Ox O2 Del Method 99.4 F 82 16 105/56 L 97 Room Air 08/18/24 08:45 08/18/24 08:45 08/18/24 08:45 08/18/24 08:45 08/18/24 08:45 08/18/24 08:45 Narrative Exam General: Awake. HEENT: Normocephalic, atraumatic, mucous membranes moist. Heart: Regular rate and rhythm, no murmurs. Lungs: Clear to auscultation with no wheezing or crackles. redness at the site of port A catheter Abdomen: Soft, nondistended, nontender, positive bowel sounds. ?No guarding or rebound tenderness. Neurologic: Alert and oriented x3, no gross neurological deficit, and patient able to move all 4 extremities. Extremities: No edema. Skin: No rash or ecchymoses. Objective Labs 08/18/24 05:20 08/18/24 05:20 Labs: Laboratory Results - last 24 hr 08/17/24 08/17/24 08/17/24 16:15 17:00 19:49 WBC 2.9 L D RBC 4.88 Hgb 14.7 Hct 43.2 MCV 89 MCH 30.1 MCHC 34.0 RDW Std Deviation 43.1 Plt Count 92 L D Neut % (Auto) 90 H Lymph % (Auto) 6 L Jefferson % (Auto) 2 Eos % (Auto) 0 Baso % (Auto) 1 Neut # (Auto) 2.6 Lymph # (Auto) 0.2 L Jefferson # (Auto) 0.1 Eos # (Auto) 0.0 Baso # (Auto) 0.0 Immature Gran # (Auto) 0.02 H Absolute Nucleated RBC 0.00 Immature Gran % 1 H Nucleated RBC % 0 PT INR APTT Sodium 129 L Potassium 4.1 Chloride 95 L Carbon Dioxide 21.0 Anion Gap 13 BUN 15 Creatinine 1.3 Estim Creat Clear Calc Not Performed. eGFR 57 L BUN/Creatinine Ratio [address] Glu mg/dL Hemoglobin A1c Calculated Osmolality 263 L Lactic Acid 2.3 H 1.6 Calcium 9.3 Corrected Calcium 9.3 Phosphorus Magnesium Total Bilirubin 1.0 AST 376 H ALT 276 H Alkaline Phosphatase 120 H D Total Protein 7.9 Albumin 4.8 Globulin 3.1 Albumin/Globulin Ratio 1.5 Triglycerides Cholesterol LDL Cholesterol, Calc HDL Cholesterol Cholesterol/HDL Ratio Procalcitonin 1.01 H Ur Collection Type Clean Catch Urine Color Yellow Urine Clarity Clear Urine pH 6.5 Ur Specific [place] 1.020 Urine Protein 1+ A Urine Glucose (UA) Negative Urine Ketones Negative Urine Blood Trace Urine Nitrite Negative Urine Bilirubin Negative Urine Urobilinogen (Auto) Negative Ur Leukocyte Esterase Negative Urine RBC 2 Urine WBC < 1 Ur Squamous Epith Cells 0 Urine Bacteria None Hepatitis A IgM Ab Hep Bs Antigen Hep B Core IgM Ab Hepatitis C Antibody 08/18/24 05:20 WBC 2.7 L RBC 4.59 Hgb 14.1 Hct 40.0 L MCV 87 MCH 30.7 MCHC 35.3 RDW Std Deviation 41.7 Plt Count 80 L Neut % (Auto) 73 Lymph % (Auto) 19 Jefferson % (Auto) 7 Eos % (Auto) 0 Baso % (Auto) 0 Neut # (Auto) 2.0 Lymph # (Auto) 0.5 L Jefferson # (Auto) 0.2 Eos # (Auto) 0.0 Baso # (Auto) 0.0 Immature Gran # (Auto) 0.02 H Absolute Nucleated RBC 0.00 Immature Gran % 1 H Nucleated RBC % 0 PT 13.6 H INR 1.3 APTT 35.6 Sodium 130 L Potassium 4.2 Chloride 96 L Carbon Dioxide 20.6 Anion Gap 13 BUN 20 Creatinine 1.1 Estim Creat Clear Calc Not Performed. eGFR > 60 BUN/Creatinine Ratio [address] Glu mg/dL 123 Hemoglobin A1c 5.9 Calculated Osmolality 265 L Lactic Acid Calcium 9.0 Corrected Calcium 9.0 Phosphorus 2.5 Magnesium 2.3 Total Bilirubin 0.9 AST 236 H ALT 266 H Alkaline Phosphatase 120 H Total Protein 7.2 Albumin 4.6 Globulin 2.6 Albumin/Globulin Ratio 1.8 Triglycerides 140 Cholesterol 96 L LDL Cholesterol, Calc 36 HDL Cholesterol 32 L Cholesterol/HDL Ratio 3.0 L Procalcitonin Ur Collection Type Urine Color Urine Clarity Urine pH Ur Specific [place] Urine Protein Urine Glucose (UA) Urine Ketones Urine Blood Urine Nitrite Urine Bilirubin Urine Urobilinogen (Auto) Ur Leukocyte Esterase Urine RBC Urine WBC Ur Squamous Epith Cells Urine Bacteria Hepatitis A IgM Ab Non Reactive Hep Bs Antigen Non Reactive Hep B Core IgM Ab Non Reactive Hepatitis C Antibody Non Reactive Quality Measures Quality Measures sepsis Current suspected stage: ruled out Possible source: skin/soft tissue Blood cultures ordered: yes Antibiotic ordered: Yes Advance care planning discussed with:: patient Assessment & Plan Assessment Current Active Medications: Generic Name Dose Route Start Last Admin Trade Name Freq PRN Reason Stop Dose Admin Acetaminophen 650 mg 08/18/24 04:53 08/18/24 05:51 Acetaminophen 325 Mg Tablet PO 09/17/24 04:52 650 mg Q6H PRN Administration Fever >100 or pain 1-3 Hydrocodone Bitart/Acetaminophen 1 tab 08/18/24 04:53 Hydrocodone/Apap 5/325 Tablet PO 08/23/24 04:52 Q4HR PRN PAIN SCALE 4-6 (Moderate Aspirin 81 mg 08/18/24 09:00 08/18/24 09:33 Aspirin Ec 81 Mg Tabec PO 09/17/24 08:59 81 mg QDAY JOB Administration Heparin Sodium (Porcine) 5,000 unit 08/18/24 09:00 08/18/24 09:33 Heparin Sod Inj 5000 Unit/Ml Vial SC 09/01/24 08:59 5,000 unit Q12HR JOB Administration Piperacillin Sod/Tazobactam 100 mls @ 200 mls/hr 08/18/24 14:00 Sod 4.5 gm/ Sodium Chloride IV 08/25/24 13:59 Q8HR JOB Vancomycin/Sodium Chloride 200 mls @ 120 mls/hr 08/18/24 22:00 Vancomycin/Ns 1 Gm Ivpb IV 08/25/24 21:59 Q12H [facility] Protocol Levothyroxine Sodium 100 mcg 08/18/24 09:00 08/18/24 09:33 Levothyroxine Sodium 100 Mcg Tablet PO 09/17/24 08:59 100 mcg QDAY JOB Administration Ondansetron HCl 4 mg 08/18/24 04:53 Ondansetron Inj 2 Mg/Ml Inj 2 Ml IV 09/17/24 04:52 Q6H PRN NAUSEA OR VOMITING Protocol Oxybutynin Chloride 10 mg 08/18/24 09:00 08/18/24 09:32 Oxybutynin Chlor Xl 5 Mg Alexander PO 09/17/24 08:59 10 mg QDAY JOB Administration Pantoprazole Sodium 40 mg 08/18/24 09:00 08/18/24 09:32 Pantoprazole Inj 40 Mg Vial IVP 09/17/24 08:59 40 mg QDAY JOB Administration Pharmacy Consult 1 each 08/18/24 09:00 Vancomycin Pharmacy To Dose 1 Each Each IV 09/17/24 08:59 QDAY PRN PROTOCOL Plan Atif is 78 y/o male with PMHx 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 On examination, there is only erythema at the site of port a catheter without any pus and patient does not look septic. -Labs showed WBC of 2.9, platelets 92 -Blood cultures done on 08/16/2024 showed no growth after 48 hours -Urine analysis is not suggestive of infection of infection -COVID-19 came back negative Plan -Blood cultures are sent -Chest x-ray, Influenza A and B was ordered -Will continue Zosyn and vancomycin for now -Consulted Dr. Mcbride. Removal of Port A catheter - Probably today by Dr. Mcbride # Transaminitis, resolving On 08/17/2024, AST 376, ALT 276 > 3/13, AST 236, ALT 266 ? Follow-up hepatitis panel - Non reactive ? Liver ultrasound - Cholelithiasis Plan: ? Limit hepatotoxic agents #History of moderately differentiated invasive squamous cell carcinoma of the esophagus #Leukopenia On 08/18/2024, WBC 2.7; Neutrophils 73% Absolute neutrophil count is 1971 Plan: ? Neutropenic precautions ? Consider Oncology consult #Radiation-induced hypothyroidism Recent TSH in July 2024 unremarkable Plan: ? Resumed home Synthroid 100 mcg #History of CAD #History of HLD Plan: ? Resumed home aspirin ? Holding home Lipitor in setting of elevated transaminases #Health Maintenance Disposition: MedSur DVT prophylaxis: Heparin every 12 hours GI prophylaxis: Protonix Diet: npo for now CODE STATUS: DNR/DNI Patient plan of care was discussed with the attending physician, Dr. Gale Flood, PGY1 Attending Provider Attestation/Addendum Patient seen and examined with resident physician Dr. Bernal. Note reviewed, agree with findings and recommendations. Infected Wneg-M-Bjib-broad-spectrum antibiotics, surgical consultation for removal.
--- NOTE | 2024-08-18 14:06 | PC.NURSE ---
Dr. Beasley made aware of patient temperature of 104F, to place order for rectal tylenol, cooling measures initiated.
[2024-08-18] MEDS: SODIUM CHLORIDE 0.9% 1000 ML 1,000 ML 70 ML IV (14:22)
--- NOTE | 2024-08-18 15:10 | PD.SURCONS ---
HPI Consult details Consult date: 08/18/24 Reason for consultation narrative: The patient was seen in consultation because of high-grade fever with infected Port-A-Cath History of present illness: Patient was seen by me in my office as an outpatient on Thursday and he was scheduled for removal of the port on . Meanwhile because of the fever he ended up admitting to the hospital. Patient does not have any pain or drainage from the Port-A-Cath Meds Home Medications and Allergies Home Medications ?Medication ?Instructions ?Recorded ?Confirmed ?Type atorvastatin 10 mg tablet 1 tab PO DAILY 01/13/22 04/08/23 History levothyroxine 25 mcg tablet 75 mcg PO DAILY 01/13/22 04/08/23 History loratadine 10 mg tablet 10 mg PO QDAY 04/08/23 04/08/23 History (Allerclear) xwmjfmqq-rqtk-affgttz gluconate 9 1 ml PO DAILY 04/08/23 04/08/23 History mg iron/15 mL (15 mL) oral liquid (Centrum) oxybutynin chloride 10 mg 10 mg PO QDAY 04/08/23 04/08/23 History tablet,extended release 24 hr Allergies Allergy/AdvReac Type Severity Reaction Status Date / Time No Known Allergies Allergy Verified 08/17/24 15:44 Exam Vital Signs Temp Pulse Resp BP Pulse Ox O2 Del Method 104 F H 82 16 105/56 L 97 Room Air 08/18/24 14:14 08/18/24 08:45 08/18/24 08:45 08/18/24 08:45 08/18/24 08:45 08/18/24 08:45 Narrative Exam Physical examination revealed a temperature of 104 with pulse rate as of 82 Routine Neck Exam Comments: Examination of the neck on the right side revealed port which is showing some signs of infection but no drainage of pus. The catheter has been inserted to the right jugular vein. Results Results: Laboratory Laboratory Narrative: Patient has a marked leukopenia Assessment & Plan Additional Assessment Additional comments: Plan infected Port-A-Cath Plan Plan: I advised the patient to undergo removal of the port to see if the temperature improves. The procedure will be done under local anesthesia today. He is agreeable.
[2024-08-18 15:13] LABS: Influenza A Ag Negative; Influenza B Ag Negative
--- NOTE | 2024-08-18 15:41 | ESOP_ITS ---
Date of Procedure 08/18/24 Pre Op Diagnosis Infected Port-A-Cath with possible bacteremia and fever Post Op Diagnosis Same Procedure Removal of the Port-A-Cath Findings Patient is found to have a new purulent material around the port but the skin was macerated because of pressure necrosis. Procedure Description After the patient was brought to the operating room he was kept in supine position. Then his right chest was washed with ChloraPrep solution and draped in a sterile manner. Timeout is performed. Then injected 1% Xylocaine with epinephrine and sodium bicarbonate around the port. I made an incision over the top of the port and dissected out the skin. Patient was found to have a thin capsule which was incised and then the port was removed from the right jugular vein. There was no any bleeding. Skin edges were macerated and I debrided some of the skin edges and closed the wound partially with 5-0 nylon stitches. The c entral portion of the wound was packed with gauze and dressed. Patient tolerated the procedure well Anesthesia MAC Pathology / specimen Other (The port was sent for culture) Estimated Blood Loss 0 Surgeon Yayo Arroyo MD Surgical Staff Operation Date: 08/18/24 17:15 <No data on this case meets the specified criteria>
--- NOTE | 2024-08-18 15:43 | SUR.PHASEI ---
pt received from OR in recovery bay 5. pt asleep but responds to voice, breathing unlabored on oxymask 8l. v/s stable. pt dressing to right upper chest cdi. report received from Curt JUÁREZ and Marysol RODRIGUEZ.
--- NOTE | 2024-08-18 16:00 | SUR.PHASEI ---
pt blood pressure low, Marysol [employer] informed. pt placed in trendelenberg position. iv fluids running.
--- NOTE | 2024-08-18 17:10 | SUR.PHASEI ---
pt awake and alert, breathing unlabored on 1l nc. v/s stable. pt dressing to right upper chest cdi. report called to Brissa JUÁREZ. pt will be transferred to room at this time.
[2024-08-18] MEDS: AZITHROMYCIN INJ 500 MG in SODIUM CHLORIDE 0.9% 250 ML 250 ML 250 MG IV (17:27)
[2024-08-19] VITALS (13 sets, daily range): BP systolic 85–106; BP diastolic 50–58; PULSE 61–87; RESP 17–95; TEMP 36.1–37; O2SAT 92–98
[2024-08-19] MEDS: SODIUM CHLORIDE 0.9% 1000 ML 1,000 ML 999 ML IV (00:08)
[2024-08-19 01:10] LABS: Thyroid Stimulating Hormone 0.76 uIU/mL (0.55-4.78); Troponin I 0.025 ng/mL (0.0-0.045)
[2024-08-19] MEDS: MIDODRINE 5 MG TABLET 10 MG PO ×3 (01:55→21:12)
--- NOTE | 2024-08-19 04:13 | PD.RESEVENT ---
Documentation for date of: 08/19/24 Event Note Event Note: Around 1 AM, rapid response was called for patient having MAP below 65. Patient was asymptomatic, did not feel weak dizzy or lightheaded. Patient does endorse that patient's blood pressure can be low at times. Physical exam did not show any abnormalities at the time, and patient had port cath removed earlier. Decision was made to resuscitate with intravascular bolus and to follow-up on blood pressure. Troponin and lactate were ordered, although pt was not having chest pain. Labs will be followed up on. Patient seen and care discussed with my attending physician Dr. Willy Jones, PGY-1
[2024-08-19] MEDS: SODIUM CHLORIDE 0.9% 1000 ML 1,000 ML 70 ML IV (04:53)
[2024-08-19] MEDS: SODIUM CHLORIDE 0.9% 1000 ML 1,000 ML 125 ML IV (05:29)
[2024-08-19 05:43] LABS: Respiratory Syncytial Virus Ag Negative (Negative)
[2024-08-19] MEDS: PIPER/TAZO INJ 4.5 GM in SODIUM CHLORIDE 0.9% (POP) 100 ML IV ×3 (05:59→21:13)
[2024-08-19 06:16] LABS: Basophils % (Auto) 1 % (0-2.5); Eosinophils % (Auto) 0 % (0-10); Hematocrit 32.8 % (41.0-53.0); Hemoglobin 11.3 g/dL (13.5-16.0); Immature Granulocytes % (Auto) 1 % (0-0); Immature Granulocytes Auto 0.02 Thou/mm3 (0.00-0.00); Lymphocytes # (Auto) 0.6 Thou/mm3 (1.0-4.8); Lymphocytes % (Auto) 22 % (10-50); Mean Corpuscular HGB Conc 34.5 g/dl (31.0-37.0); Mean Corpuscular Hemoglobin 30.4 pg (25.0-35.0); Mean Corpuscular Volume 88 fL (80-100); Monocytes # (Auto) 0.3 Thou/mm3 (0.0-0.8); Monocytes % (Auto) 11 % (0-12); Neutrophils # (Auto) 1.8 Thou/mm3 (1.8-7.7); Neutrophils % (Auto) 66 % (37-80); Nucleated Red Blood Cell % 0 /100 WBC (0); RDW Standard Deviation 45.1 fL (35.1-43.9); Red Blood Count 3.72 Miln/mm3 (4.50-5.90)
[2024-08-19 06:17] LABS: Platelet Count 68 Thou/mm3 (140-440); White Blood Count 2.8 Thou/mm3 (3.8-10.6)
[2024-08-19 06:18] LABS: INR 1.2 (0.9-1.3); Partial Thromboplastin Time 36.3 Seconds (22.0-36.0); Prothrombin Time 12.5 Seconds (9.0-12.2); Slide Review Platelets confirmed
[2024-08-19 06:43] LABS: Alanine Aminotransferase 133 U/L (10-49); Anion Gap 8 (7-16); Aspartate Amino Transferase 133 U/L (0-34); BUN/Creatinine Ratio 12 Ratio (12-20); Bilirubin,Total 0.6 mg/dL (0.3-1.2); Blood Urea Nitrogen 11 mg/dL (9-23); Calcium 7.5 mg/dL (8.3-10.6); Carbon Dioxide 20.8 mMol/L (20.0-31.0); Chloride 107 mMol/L (98-107); Creatinine (Component) 0.9 mg/dL (0.6-1.3); Estimated Creatinine Clearance 59.8 mL/min (>60); Glucose 100 mg/dL (74-106); Osmolality,Calculated 271 (275-295); Potassium 3.9 mMol/L (3.4-5.1); Sodium 136 mMol/L (136-145); Total Protein 5.5 gm/dL (5.7-8.2); eGFR > 60 See Note
[2024-08-19 06:45] LABS: Albumin, Serum 3.2 gm/dL (3.4-4.8); Albumin/Globulin Ratio 1.4 (1.2-2.2); Alkaline Phosphatase 80 U/L (46-116); Calcium (Corrected) 8.1 mg/dL (8.5-10.1); Globulin 2.3 gm/dL (2.3-3.5)
[2024-08-19] MEDS: PANTOPRAZOLE INJ 40 MG VIAL IVP (08:09)
[2024-08-19] MEDS: HEPARIN SOD INJ 5000 UNIT/ML VIAL SC (08:10)
[2024-08-19] MEDS: lorataDINE 10 MG TABLET PO (08:10)
[2024-08-19] MEDS: ASPIRIN EC 81 MG TABEC PO (08:10)
[2024-08-19] MEDS: LEVOTHYROXINE SODIUM 100 MCG TABLET PO (08:10)
[2024-08-19] MEDS: OXYBUTYNIN CHLOR XL 5 MG TABER 10 MG PO (08:23)
[2024-08-19] MEDS: AZITHROMYCIN INJ 500 MG in SODIUM CHLORIDE 0.9% 250 ML 250 ML 250 MG IV (09:21)
[2024-08-19] MEDS: VANCOMYCIN/NS 1 GM IVPB 200 ML IV ×2 (10:30→22:59)
--- NOTE | 2024-08-19 10:40 | ESPR_ITS ---
Documentation for date of: 08/19/24 Subjective Subjective Interval history: Patient was seen and examined at bedside. Patient was found to have low blood pressures yesterday and was treated with IV fluids and midodrine No further febrile episodes noted. No complaints per patient Blood cultures came back negative after 24 hours. Nunez catheter was removed yesterday Labs showed improving WBC count and liver enzymes. Will monitor CBC and LFTs. Exam Vital Signs Temp Pulse Resp BP Pulse Ox O2 Del Method O2 Flow Rate 98.0 F 74 18 92/50 L 95 Room Air 1 08/19/24 07:27 08/19/24 07:48 08/19/24 07:48 08/19/24 07:27 08/19/24 07:48 08/19/24 07:27 08/19/24 04:00 Narrative Exam General: Awake. HEENT: Normocephalic, atraumatic, mucous membranes moist. Heart: Regular rate and rhythm, no murmurs. Lungs: Clear to auscultation with no wheezing . Mild fine inspiratory crackles heard on the base of the lungs Abdomen: Soft, nondistended, nontender, positive bowel sounds. ?No guarding or rebound tenderness. Neurologic: Alert and oriented x3, no gross neurological deficit, and patient able to move all 4 extremities. Extremities: No edema. Skin: No rash or ecchymoses. Objective Labs 08/19/24 05:30 08/19/24 05:30 Labs: Laboratory Results - last 24 hr 08/18/24 08/19/24 08/19/24 12:30 00:21 04:45 WBC RBC Hgb Hct MCV MCH MCHC RDW Std Deviation Plt Count Neut % (Auto) Lymph % (Auto) [place] % (Auto) Eos % (Auto) Baso % (Auto) Neut # (Auto) Lymph # (Auto) [place] # (Auto) Eos # (Auto) Baso # (Auto) Immature Gran # (Auto) Absolute Nucleated RBC Immature Gran % Nucleated RBC % PT INR APTT Sodium Potassium Chloride Carbon Dioxide Anion Gap BUN Creatinine Estim Creat Clear Calc eGFR BUN/Creatinine Ratio Glucose Calculated Osmolality Lactic Acid 2.0 Calcium Corrected Calcium Total Bilirubin AST ALT Alkaline Phosphatase Troponin I 0.025 Total Protein Albumin Globulin Albumin/Globulin Ratio TSH 0.76 Influenza A (Rapid) Negative Influenza B (Rapid) Negative RSV Rapid Negative Misc Test Result 08/19/24 05:30 WBC 2.8 L RBC 3.72 L Hgb 11.3 L D Hct 32.8 L MCV 88 MCH 30.4 MCHC 34.5 RDW Std Deviation 45.1 H Plt Count 68 L Neut % (Auto) 66 Lymph % (Auto) 22 [place] % (Auto) 11 Eos % (Auto) 0 Baso % (Auto) 1 Neut # (Auto) 1.8 Lymph # (Auto) 0.6 L [place] # (Auto) 0.3 Eos # (Auto) 0.0 Baso # (Auto) 0.0 Immature Gran # (Auto) 0.02 H Absolute Nucleated RBC 0.00 Immature Gran % 1 H Nucleated RBC % 0 PT 12.5 H INR 1.2 APTT 36.3 H Sodium 136 Potassium 3.9 Chloride 107 Carbon Dioxide 20.8 Anion Gap 8 BUN 11 Creatinine 0.9 Estim Creat Clear Calc 59.8 L eGFR > 60 BUN/Creatinine Ratio 12 Glucose 100 Calculated Osmolality 271 L Lactic Acid Calcium 7.5 L D Corrected Calcium 8.1 L Total Bilirubin 0.6 AST 133 H ALT 133 H Alkaline Phosphatase 80 D Troponin I Total Protein 5.5 L Albumin 3.2 L D Globulin 2.3 Albumin/Globulin Ratio 1.4 TSH Influenza A (Rapid) Influenza B (Rapid) RSV Rapid Misc Test Result Platelets confirmed Quality Measures Quality Measures sepsis Current suspected stage: ruled out Possible source: skin/soft tissue Blood cultures ordered: yes Antibiotic ordered: Yes Advance care planning discussed with:: patient Assessment & Plan Assessment Current Active Medications: Generic Name Dose Route Start Last Admin Trade Name Freq PRN Reason Stop Dose Admin Acetaminophen 650 mg 08/18/24 04:53 08/18/24 05:51 Acetaminophen 325 Mg Tablet PO 09/17/24 04:52 650 mg Q6H PRN Administration Fever >100 or pain 1-3 Acetaminophen 650 mg 08/18/24 14:05 Acetaminophen Supp 650 Mg Supp WV 09/17/24 14:04 Q6HR PRN PAIN 1-3 OR FEVER > 101 Hydrocodone Bitart/Acetaminophen 1 tab 08/18/24 04:53 Hydrocodone/Apap 5/325 Tablet PO 08/23/24 04:52 Q4HR PRN PAIN SCALE 4-6 (Moderate Albuterol/Ipratropium 3 ml 08/18/24 15:19 Albuterol/Ipratropium (Duoneb) Rt Janene 3 Ml Nebu INH 08/19/24 15:18 Q4HRRT PRN SHORTNESS OF BREATH Aspirin 81 mg 08/18/24 09:00 08/19/24 08:10 Aspirin Ec 81 Mg Tabec PO 09/17/24 08:59 81 mg QDAY JOB Administration Heparin Sodium (Porcine) 5,000 unit 08/18/24 09:00 08/19/24 08:10 Heparin Sod Inj 5000 Unit/Ml Vial SC 09/01/24 08:59 5,000 unit Q12HR JOB Administration Piperacillin Sod/Tazobactam 100 mls @ 200 mls/hr 08/18/24 14:00 08/19/24 05:59 Sod 4.5 gm/ Sodium Chloride IV 08/25/24 13:59 200 mls/hr Q8HR JOB Administration Vancomycin/Sodium Chloride 200 mls @ 120 mls/hr 08/18/24 22:00 08/19/24 10:30 Vancomycin/Ns 1 Gm Ivpb IV 08/25/24 21:59 120 mls/hr Q12H JOB Administration Protocol Azithromycin 500 mg/ Sodium 250 mls @ 250 mls/hr 08/18/24 14:11 08/19/24 09:21 Chloride IV 08/25/24 14:10 250 mls/hr QDAY JOB Administration Sodium Chloride 1,000 mls @ 125 mls/hr 08/19/24 05:29 08/19/24 05:29 Ns IV 09/18/24 05:28 125 mls/hr .Q8H JOB Administration Levothyroxine Sodium 100 mcg 08/20/24 06:00 Levothyroxine Sodium 100 Mcg Tablet PO 09/17/24 08:59 ACBR JOB Loratadine 10 mg 08/19/24 09:00 08/19/24 08:10 Loratadine 10 Mg Tablet PO 09/18/24 08:59 10 mg QDAY JOB Administration Non-Formulary Medication 1 ml 08/19/24 09:00 08/19/24 08:10 Qpnfvyft-Izu-Bznfupb Gluconate [Centrum] PO 09/18/24 08:59 Not Given DAILY JOB Ondansetron HCl 4 mg 08/18/24 04:53 Ondansetron Inj 2 Mg/Ml Inj 2 Ml IV 09/17/24 04:52 Q6H PRN NAUSEA OR VOMITING Protocol Oxybutynin Chloride 10 mg 08/18/24 09:00 08/19/24 08:23 Oxybutynin Chlor Xl 5 Mg Alexander PO 09/17/24 08:59 10 mg QDAY JOB Administration Pantoprazole Sodium 40 mg 08/18/24 09:00 08/19/24 08:09 Pantoprazole Inj 40 Mg Vial IVP 09/17/24 08:59 40 mg QDAY JOB Administration Plan Atif is 78 y/o male with PMHx 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 On examination, there is only erythema at the site of port a catheter without any pus and patient does not look septic. -Labs showed WBC of 2.9, platelets 92 -Blood cultures done on 08/16/2024 showed no growth after 48 hours -Urine analysis is not suggestive of infection of infection -COVID-19, Influenza A and B came back negative Plan -Blood cultures are sent -Will continue Zosyn and vancomycin for now -Consulted Dr. Mcbride. Removal of Port A catheter - Probably today by Dr. Mcbride # Transaminitis, resolving On 08/17/2024, AST 376, ALT 276 > 3/, AST 236, ALT 266 > 3/14, AST 133, ALT 133 ? Follow-up hepatitis panel - Non reactive ? Liver ultrasound - Cholelithiasis Plan: ? Limit hepatotoxic agents #History of moderately differentiated invasive squamous cell carcinoma of the esophagus #Leukopenia On 08/18/2024, WBC 2.7; Neutrophils 73%, 3/14, 2.8 Absolute neutrophil count is 1971 Plan: ? Neutropenic precautions ? Consider Oncology consult #Radiation-induced hypothyroidism Recent TSH in July 2024 unremarkable Plan: ? Resumed home Synthroid 100 mcg #History of CAD #History of HLD Plan: ? Resumed home aspirin ? Holding home Lipitor in setting of elevated transaminases #Health Maintenance Disposition: MedSurg DVT prophylaxis: Heparin every 12 hours GI prophylaxis: Protonix Diet: Dysphagia 3 CODE STATUS: DNR/DNI Patient plan of care was discussed with the attending physician, Dr. Gale Flood, PGY1 Attending Provider Attestation/Addendum Patient seen and examined with resident physician Dr. Bernal. Note reviewed, agree with findings and recommendations. Infected Zozw-U-Fzsr-broad-spectrum antibiotics, surgical consultation done- removed. at bedside. Blood cultures, urine cultures so far negative. Question underlying viral fever with leukopenia.
--- NOTE | 2024-08-19 12:00 | PC.SS ---
Initial assessment: patient is a 78 year old male. Lives at home with Lin and son in law. Patient confirmed the home address. Patient designed his as his emergency contact. Patient reports being independent with ADL's. Patient denies use of DME. Patient is followed by Dr. Beasley for primary care. Patient would like to return home upon discharge and family is able to transport home. D/c plan: home Next of kin: , Lin [phone]
--- NOTE | 2024-08-19 15:25 | PC.SS ---
SS update: pending labs and medical improvement.
[2024-08-19] MEDS: SODIUM CHLORIDE 0.9% 1000 ML 1,000 ML 75 ML IV (16:07)
--- NOTE | 2024-08-19 21:08 | PC.NURSE ---
called Dr. Beasley regarding patient's platelets from AM labs today of 65, patient has heparin ordered, per Dr. Beasley to hold dose of heparin for 2100.
[2024-08-19 21:35] LABS: Vancomycin,Trough 10.1 mcg/mL (5.0-10.0)
[2024-08-20] VITALS: BP 99/57; PULSE 69; RESP 18; TEMP 37.2; O2SAT 92
[2024-08-20] MEDS: SODIUM CHLORIDE 0.9% 1000 ML 1,000 ML 75 ML IV (03:53)
[2024-08-20 04:00] VITALS: BP 108/57; PULSE 67; RESP 18; TEMP 36.7; O2SAT 92
[2024-08-20] MEDS: PIPER/TAZO INJ 4.5 GM in SODIUM CHLORIDE 0.9% (POP) 100 ML IV (05:39)
[2024-08-20] MEDS: LEVOTHYROXINE SODIUM 100 MCG TABLET PO (05:39)
[2024-08-20 06:16] LABS: Basophils % (Auto) 1 % (0-2.5); Eosinophils % (Auto) 1 % (0-10); Hematocrit 31.3 % (41.0-53.0); Hemoglobin 10.8 g/dL (13.5-16.0); Immature Granulocytes % (Auto) 0 % (0-0); Immature Granulocytes Auto 0.01 Thou/mm3 (0.00-0.00); Lymphocytes % (Auto) 28 % (10-50); Mean Corpuscular HGB Conc 34.5 g/dl (31.0-37.0); Mean Corpuscular Hemoglobin 30.3 pg (25.0-35.0); Mean Corpuscular Volume 88 fL (80-100); Monocytes # (Auto) 0.5 Thou/mm3 (0.0-0.8); Monocytes % (Auto) 14 % (0-12); Neutrophils % (Auto) 56 % (37-80); Nucleated Red Blood Cell % 0 /100 WBC (0); Platelet Count 85 Thou/mm3 (140-440); RDW Standard Deviation 45.7 fL (35.1-43.9); Red Blood Count 3.56 Miln/mm3 (4.50-5.90); White Blood Count 3.6 Thou/mm3 (3.8-10.6)
[2024-08-20 06:57] LABS: Alanine Aminotransferase 103 U/L (10-49); Albumin, Serum 3.3 gm/dL (3.4-4.8); Albumin/Globulin Ratio 1.6 (1.2-2.2); Alkaline Phosphatase 108 U/L (46-116); Anion Gap 9 (7-16); Aspartate Amino Transferase 95 U/L (0-34); BUN/Creatinine Ratio 14 Ratio (12-20); Bilirubin,Total 0.5 mg/dL (0.3-1.2); Blood Urea Nitrogen 11 mg/dL (9-23); Calcium (Corrected) 8.6 mg/dL (8.5-10.1); Carbon Dioxide 20.5 mMol/L (20.0-31.0); Chloride 107 mMol/L (98-107); Creatinine (Component) 0.8 mg/dL (0.6-1.3); Estimated Creatinine Clearance 67.3 mL/min (>60); Globulin 2.1 gm/dL (2.3-3.5); Glucose 99 mg/dL (74-106); Osmolality,Calculated 271 (275-295); Potassium 3.9 mMol/L (3.4-5.1); Sodium 136 mMol/L (136-145); Total Protein 5.4 gm/dL (5.7-8.2); eGFR > 60 See Note
[2024-08-20 07:33] VITALS: PULSE 74; RESP 21; RESP 98; O2SAT 98
[2024-08-20 08:00] VITALS: BP 93/50; PULSE 63; RESP 17; TEMP 36.2; O2SAT 94
[2024-08-20 08:13] VITALS: BP 93/50; PULSE 63
[2024-08-20] MEDS: MIDODRINE 5 MG TABLET 10 MG PO (08:13)
[2024-08-20] MEDS: AZITHROMYCIN INJ 500 MG in SODIUM CHLORIDE 0.9% 250 ML 250 ML 250 MG IV (08:13)
[2024-08-20] MEDS: PANTOPRAZOLE INJ 40 MG VIAL IVP (08:13)
[2024-08-20] MEDS: OXYBUTYNIN CHLOR XL 5 MG TABER 10 MG PO (08:13)
[2024-08-20] MEDS: lorataDINE 10 MG TABLET PO (08:13)
[2024-08-20] MEDS: ASPIRIN EC 81 MG TABEC PO (08:13)
--- NOTE | 2024-08-20 08:30 | PC.NURSE ---
made aware of plt 83. MD ordered to hold am heparin
--- NOTE | 2024-08-20 17:20 | PD.RESDS ---
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 He went to go see his primary care doctor who gave him a 10-day course of Bactrim and was also recommended to see general surgery. He says that he improved slightly with the Bactrim. General surgeon Dr. Mcbride recommended patient to get cath removal and was supposed to be done on August 25. Labs sodium of 129, potassium 4.1, BUN/creatinine 50 and 1.3, glucose 176, WBC of 2.9, hemoglobin 14.7, lactate 1.6, Pro-Jairo 1.0, osmolarity 263, AST ALT 376 and 276, ALP 120. COVID, influenza A and B came back negative. Chest x-ray showed patchy infiltrate suggestive of atypical/viral pneumonia. Port a catheter was removed by Dr. Mcbride in view of suspected CLABSI. Blood cultures, MRSA nasal screen and urine cultures came back negative. Patient was treated with antibiotics during the hospital stay. Patient medical condition and labs showed significant improvement during the hospital stay Patient was discharged to home with the following medications and recommendations -Follow-up with PCP within 1 week of discharge. -Start Amoxiclav p.o. BID for 7 days -Start midodrine 10mg p.o. qday -Continue rest of the home medications -Return to ED if symptoms persist or return # Fever Likely viral versus less likely CLABSI # Transaminitis, resolving #History of moderately differentiated invasive squamous cell carcinoma of the esophagus #Leukopenia #Radiation-induced hypothyroidism #History of CAD #History of HLD Patient plan of care was discussed with the attending physician, Dr. Gale Flood, PGY1 Status at Discharge Cognitive/behavioral status at discharge: stable Functional status at discharge: independent ambulation Overall status at discharge: patient is progressing back to baseline Time Spent with Patient Time attestation: Total time spent providing and/or coordinating discharge services: 35min Time spent: Greater than 30 minutes Exam Vital Signs Temp Pulse Resp BP Pulse Ox O2 Del Method O2 Flow Rate 97.2 F 63 17 93/50 L 94 L Room Air 1 08/20/24 08:00 08/20/24 08:13 08/20/24 08:00 08/20/24 08:13 08/20/24 08:00 08/20/24 08:00 08/19/24 04:00 Narrative Exam General: Awake. HEENT: Normocephalic, atraumatic, mucous membranes moist. Heart: Regular rate and rhythm, no murmurs. Lungs: Clear to auscultation with no wheezing or crackles. Surgical wound looks clean Abdomen: Soft, nondistended, nontender, positive bowel sounds. ?No guarding or rebound tenderness. Neurologic: Alert and oriented x3, no gross neurological deficit, and patient able to move all 4 extremities. Extremities: No edema. Skin: No rash or ecchymoses. Discharge Plan Plan Patient Disposition: HOME (Self Care) Patient condition on transfer: Stable Care Plan Goals: -Follow-up with PCP within 1 week of discharge. -Start Amoxiclav p.o. BID for 7 days -Start midodrine 10mg p.o. qday -Continue rest of the home medications -Return to ED if symptoms persist or return Prescriptions/Referrals Prescriptions/Med Rec: New midodrine 5 mg Tablet 10 mg PO DAILY Qty: 30 0RF amoxicillin-pot clavulanate [Augmentin] 500-125 mg tablet 1 tab PO BID Qty: 14 0RF mupirocin 2 % ointment 1 applic topical BID PRN (Reason: wound) Qty: 50 0RF Continued atorvastatin 10 mg tablet 1 tab PO DAILY levothyroxine 25 mcg tablet 75 mcg PO DAILY oxybutynin chloride 10 mg Tablet Extended Release 24hr 10 mg PO QDAY loratadine [Allerclear] 10 mg Tablet 10 mg PO QDAY bxlalgrb-btt-lrdrixu gluconate [Centrum] 9 mg iron/ 15 mL (15 mL) Liquid 1 ml PO DAILY Referrals: Ramesh Beasley MD [Primary Care Provider] - Patient/Caregiver Discharge Instructions Discharge Activity: activity as tolerated Education Materials: Central Line Infections Print Language: American Activity Restrictions/Additional Instructions: f/u with dr. beasley, dr. Mcbride in 1-2 weeks Stand Alone Forms: Lilia Award Info., Patient Portal Info Letter Discharge Order Discharge Orders: Discharge (Routine); Ordered 08/20/24 Ordered By: Gabe Flood Quality Discharge Quality Measures VTE prophylaxis MD Attestestation MD Attestation Patient seen and examined with resident physician Dr. Bernal. Note reviewed, agree with findings and recommendations. dc home on po abx-10 days
== END 2024-08-20 12:56 | disposition home or self-care (01) | DRG 314 ==
LOC: SERX 08-18 03:56 → SERHOLD 08-18 05:19 → S3SX 08-18 08:33 → S3NX 08-18 15:55
PROVIDERS: Nurse Practitioner Family; Student in an Organized Health Care Education/Training Program; Surgery; Admitting Provider Internal Medicine; Emergency Provider Emergency Medicine; PCP Internal Medicine; Visit Provider Student in an Organized Health Care Education/Training Program
PROC: 0JPT0WZ Removal of Totally Implantable Vascular Access Device from Trunk Subcutaneous Tissue and Fascia, Open Approach (ICD-10-PCS; CPT 36590; principal; 2024-08-18 17:00)
DX: T80.211A Bloodstream infection due to central venous catheter, initial encounter (principal); A41.9 Sepsis, unspecified organism; C15.9 Malignant neoplasm of esophagus, unspecified; D70.9 Neutropenia, unspecified; K80.20 Calculus of gallbladder without cholecystitis without obstruction; I10 Essential (primary) hypertension; R50.81 Fever presenting with conditions classified elsewhere; I25.10 Atherosclerotic heart disease of native coronary artery without angina pectoris; E78.5 Hyperlipidemia, unspecified; E89.0 Postprocedural hypothyroidism; Z92.3 Personal history of irradiation; Y84.2 Radiological procedure and radiotherapy as the cause of abnormal reaction of the patient, or of later complication, without mention of misadventure at the time of the procedure; Y84.8 Other medical procedures as the cause of abnormal reaction of the patient, or of later complication, without mention of misadventure at the time of the procedure; Z66 Do not resuscitate; Z79.82 Long term (current) use of aspirin; Z11.52 Encounter for screening for COVID-19
CPT/HCPCS: 36415; 71045; 76705; 80053; 80061; 80074; 80202; 81001; 83036; 83605; 83735; 84100; 84145; 84443; 84484; 85025; 85610; 85730; 87040; 87070; 87077; 87081; 87086; 87186; 87205; 87502; 87634; 87811; 92610; 96361; 96365; 99285; A4217; A4649; J0131; J0456; J1643; J2405; J2470; J2543; J2704; J3370; J3490; J7030; J7050; A9270

== ENCOUNTER 2024-08-24 14:21 | Outpatient (RCR) | payer MEDICARE, BC, SELFPAY ==
--- NOTE | 2024-09-12 00:57 | CTCFLWUP_ITS ---
Patient: ATIF CUEVA : 1945 Page 5 of 7 FOLLOW UP NOTE DATE OF SERVICE: 08/24/2024 NAME: ATIF CUEVA ACCOUNT: [id number] : 1945 AGE: 78 INTERVAL HISTORY: No new compliants . tolerating opdivo well. ONCOLOGY HISTORY: DIAGNOSIS: Malignant neoplasm of esophagus, unspecified [ICD10] C15.9 DATE OF DIAGNOSIS: 01/13/2022 STAGE/TNM: Recurrent esophageal cancer TREATMENT HISTORY: Care?Plan Start?Date Cycle Day Intent Taxol?50mg/m*2?+?Carbo?AUC?2?+?Concurrent?XRT 04/15/2022 1 7 Curative?(primary) mFOLFOX-6?-?5FU?400?+?2400?CIV,?LVR?400,?OXALIplat?85?nivolumab 04/13/2023 1 14 Palliative OPDIvo 10/08/2023 1 14 Palliative OPDIvo?480mg?every?4?weeks 06/23/2024 1 28 Maintenance HISTORY OF PRESENT ILLNESS: Atif Cueva is a 78-year-old ENG speaking male with history of hypertension as well as hypothyroidism has the following oncology history. June 2021: Patient started noticing having trouble swallowing as well as a sensation of a mass lesion in the throat. Initially patient saw ENT physician and later saw Dr. Morillo wild life manager. 01/13/2022: Mr. Cueva had endoscopy performed by Dr. Morillo. 03/04/2022: Mr. Cueva had PET/CT scan done at [facility]. 03/10/2022: Mr. Cueva had upper GI endoscopy with ultrasound? 03/14/2022: Mr. Cueva was seen by Dr. Morro Cobian, GI surgeon of [facility] who recommended neoadjuvant chemoradiation followed by possible surgery. 03/27/2022: Mr. Cueva was seen by Dr. Chapa, radiation oncologist here at [facility] cancer center. 06/15/2021 - 05/27/2022: Patient was treated with chemoradiation. For chemotherapy he was on weekly Taxol and carboplatin. 06/03/2022: PET/CT scan? 07/23/2022: Mr. Cueva had esophagectomy done at [facility]. Surgical pathology report is not available to me today. 09/26/2022: PET/CT scan? 02/19/2023: PET/CT scan? 04/13/2023?08/04/2023: Mr. Cueva received 7 cycle of modified FOLFOX 6 with nivolumab. 10/08/2019: He was started on single agent nivolumab. 09/16/2023 - 09/29/2023: Mr. Cueva received 3000 cGy radiation to the chest. 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 Tobacco?Pack?per?Day:?0 Tobacco?Use?Years:?0 Tobacco?Use:?Denies ETOH Use:?Drank 12pk/beer/day x 30yrs- Quit recently Drug?Note:?Denies Social History Note:?Live with ; daughter and son-in-law MEDICATIONS: 1. Amox Tr-Potassium Clavulanate - 500-125 mg 1 tab Twice a Day 2. aspirin - 81 mg 1 tab Daily 3. atorvastatin - 10 mg 1 tab Daily 4. levothyroxine - 125 mcg 1 tab Daily 5. loratadine - 10 mg 1 tab Daily 6. midodrine - 5 mg 2 tab Daily 7. omeprazole - 40 mg 1 Capsule Daily 8. oxybutynin chloride - 10 mg 1 tab Every day before sleep Medications Last Reconciled by Alesia Paulino MA on 08/24/2024 ALLERGIES: No Known Drug Allergies REVIEW OF SYSTEMS: A complete 14-point review of systems was performed and is negative except as noted in interval history. PHYSICAL EXAMINATION: VITAL SIGNS: Temperature?99.8, B/P?131/73, Oxygen?Saturation?98% Weight?142?lbs PAIN: 0 - No pain GENERAL APPEARANCE: Appears well, in no apparent distress, appropriately interactive. HEENT: Normocephalic, no temporal wasting, normal conjunctiva, no scleral icterus, normal hearing, lips without lesions, neck normal range of motion. CARDIOVASCULAR: Not assessed. PULMONARY: Normal respiratory effort, no respiratory distress or use of accessory muscles, speaking in full sentences, no tachypnea. EXTREMITIES: No pedal edema or cyanosis. SKIN: Normal skin appearance. NEUROLOGIC: Alert and oriented x4. PSHYCHIATRIC: Appropriate affect, mood normal, behavior normal, intact thought and speech. LABORATORY DATA: I have personally reviewed and interpreted each of the patient?s relevant lab tests, abnormal findings are below: Date 08/19/24 08/20/24 ??WHITE?BLOOD?COUNT?(Thou/mm3) 2.8?L 3.6?L ??RED?BLOOD?COUNT?(Miln/mm3) 3.72?L 3.56?L ??HEMOGLOBIN?(gm/dl) 11.3?L 10.8?L ??HEMATOCRIT?(%) 32.8?L 31.3?L ??PLATELET?COUNT?(Thou/mm3) 68?L 85?L ??NEUTROPHILS?%,?AUTO?(%) 66 56 ??LYMPH?%,?AUTO?(%) 22 28 ??NEUTROPHILS,?AUTO?(Thou/mm3) 1.8 2.0 ??GLUCOSE,RANDOM?(mg/dL) 100 99 ??BLOOD?UREA?NITROGEN?(mg/dL) 11 11 ??CREATININE?(mg/dL) 0.90 0.80 ??SODIUM?(mmol/L) 136 136 ??POTASSIUM?(mmol/L) 3.9 3.9 ??CHLORIDE?(mmol/L) 107 107 ??CrCl?(CandG)?(ml/min) 64.91 73.03 ??AST/SGOT?(Unit/L) 133?H 95?H ??ALT/SGPT?(Unit/L) 133?H 103?H ??ALKALINE?PHOSPHATASE?(Unit/L) 80 108 ??BILIRUBIN,?TOTAL?(mg/dL) 0.6 0.5 ??PROTEIN?TOTAL?(gm/dl) 5.5?L 5.4?L ??ALBUMIN,?SERUM?(gm/dl) 3.2?L 3.3?L ??GLOBULIN?(gm/dl) 2.3 2.1?L ??ALBUMIN/GLOBULIN?RATIO 1.4 1.6 ??CALCIUM,?SERUM?(mg/dL) 7.5?L 8.0?L ??CALCIUM?SERUM?(CORRECTED)?(mg/dL) 8.1?L 8.6 ASSESSMENT/PLAN: 1) Recurrent invasive squamous cancer of esophagus 2) Patient had recurrence in the peritracheal lymph node which was similar to his initial cancer which was diagnosed in 2021 Clinical stage 1 (GEORGE) 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 stable sub centrimeter left upper paratracheal LN with cont resolution of PBS likely treated disease Continue nivolumab for now for a total 2 years CBC CMP TSH Patient was in the hospital for possible infection in the port and has been on antibiotics Can resume treatment through the peripheral line with the nivolumab #2 hypothyroidism On Levoxyl continue #3 hypertension 0n Norvasc follow-up with PCP ORDERS: Order # Description [id number] CBC + Comprehensive Metabolic Panel [id number] Lab Appointment [id number] Follow Up Appointment [id number] CBC + Comprehensive Metabolic Panel [id number] Lab Appointment [id number] Follow Up Appointment [id number] CBC + Comprehensive Metabolic Panel [id number] Lab Appointment [id number] Follow Up Appointment [id number] CBC + Comprehensive Metabolic Panel [id number] Lab Appointment [id number] Follow Up Appointment [id number] CBC + Comprehensive Metabolic Panel [id number] Lab Appointment [id number] Follow Up Appointment [id number] CBC + Comprehensive Metabolic Panel [id number] Lab Appointment [id number] Follow Up Appointment [id number] CBC + Comprehensive Metabolic Panel [id number] Lab Appointment [id number] Follow Up Appointment [id number] CBC + Comprehensive Metabolic Panel [id number] Lab Appointment [id number] Follow Up Appointment [id number] CBC + Comprehensive Metabolic Panel [id number] Lab Appointment [id number] Follow Up Appointment [id number] CBC + Comprehensive Metabolic Panel [id number] Lab Appointment [id number] Follow Up Appointment RETURN TO CLINIC: BILLING AND COMPLIANCE: I reviewed external records from providers outside my specialty as summarized above. I spent a total of 50 minutes on this patient?s care on the day of their visit excluding time spent related to any billed procedures. This time includes time spent with the patient as well as time spent documenting in the medical record, reviewing patients records and tests, obtaining history, placing orders, communicating with other healthcare professionals, counseling the patient, family or caregiver, and/or care coordination for the diagnoses above. Electronically Signed by: Lupillo Cisneros MD T: 12:54 AM CC: Krys?Ilia? PCP: Ramesh Beasley Referring: Ramesh Beasley This document was completed utilizing speech recognition software. Grammatical errors, random word insertions, pronoun errors, and incomplete sentences are an occasional consequence of this system due to software limitations, ambient noise, and hardware issues. Any formal questions or concerns about the content, text or information contained within the body of this dictation should be directly addressed to the provider for clarification.
== END 2024-09-05 23:59 | disposition home or self-care (01) ==
LOC: SCTC 14:21
PROVIDERS: PCP Internal Medicine; Referring Provider Internal Medicine; Visit Provider Internal Medicine Hematology & Oncology
DX: C15.4 Malignant neoplasm of middle third of esophagus (principal); Z90.49 Acquired absence of other specified parts of digestive tract; Z92.3 Personal history of irradiation; Z92.21 Personal history of antineoplastic chemotherapy; E03.9 Hypothyroidism, unspecified; Z79.890 Hormone replacement therapy; I10 Essential (primary) hypertension
CPT/HCPCS: 99212; G0463

== ENCOUNTER → 2024-09-19 | Outpatient (CLI) | payer MEDICARE, BC, SELFPAY ==
[2024-09-19 10:41] LABS: Basophils % (Auto) 1 % (0-2.5); Eosinophils # (Auto) 0.1 Thou/mm3 (0.0-0.5); Eosinophils % (Auto) 2 % (0-10); Hematocrit 42.8 % (41.0-53.0); Hemoglobin 13.9 g/dL (13.5-16.0); Immature Granulocytes % (Auto) 0 % (0-0); Immature Granulocytes Auto 0.01 Thou/mm3 (0.00-0.00); Lymphocytes # (Auto) 1.3 Thou/mm3 (1.0-4.8); Lymphocytes % (Auto) 31 % (10-50); Mean Corpuscular HGB Conc 32.5 g/dl (31.0-37.0); Mean Corpuscular Hemoglobin 30.7 pg (25.0-35.0); Mean Corpuscular Volume 95 fL (80-100); Monocytes # (Auto) 0.5 Thou/mm3 (0.0-0.8); Monocytes % (Auto) 11 % (0-12); Neutrophils # (Auto) 2.3 Thou/mm3 (1.8-7.7); Neutrophils % (Auto) 55 % (37-80); Nucleated Red Blood Cell % 0 /100 WBC (0); Platelet Count 161 Thou/mm3 (140-440); RDW Standard Deviation 49.9 fL (35.1-43.9); Red Blood Count 4.53 Miln/mm3 (4.50-5.90); White Blood Count 4.3 Thou/mm3 (3.8-10.6)
[2024-09-19 10:51] LABS: Alanine Aminotransferase 47 U/L (10-49); Albumin, Serum 4.8 gm/dL (3.4-4.8); Albumin/Globulin Ratio 1.8 (1.2-2.2); Alkaline Phosphatase 91 U/L (46-116); Anion Gap 8 (7-16); Aspartate Amino Transferase 36 U/L (0-34); BUN/Creatinine Ratio 15 Ratio (12-20); Bilirubin,Total 0.8 mg/dL (0.3-1.2); Blood Urea Nitrogen 15 mg/dL (9-23); Calcium 9.5 mg/dL (8.3-10.6); Calcium (Corrected) 9.5 mg/dL (8.5-10.1); Chloride 105 mMol/L (98-107); Globulin 2.6 gm/dL (2.3-3.5); Glucose 97 mg/dL (74-106); Osmolality,Calculated 283 (275-295); Potassium 4.7 mMol/L (3.4-5.1); Sodium 142 mMol/L (136-145); Total Protein 7.4 gm/dL (5.7-8.2); eGFR > 60 See Note
== END | disposition home or self-care (01) ==
LOC: SCTO 08:44
PROVIDERS: PCP Internal Medicine; Referring Provider Internal Medicine Hematology & Oncology; Visit Provider Internal Medicine Hematology & Oncology
DX: C15.9 Malignant neoplasm of esophagus, unspecified (principal)
CPT/HCPCS: 36415; 80053; 85025

== ENCOUNTER → 2024-09-27 | Outpatient (CLI) | payer MEDICARE, BC, SELFPAY ==
[2024-09-27 09:10] LABS: Basophils # (Auto) 0.1 Thou/mm3 (0.0-0.2); Basophils % (Auto) 1 % (0-2.5); Eosinophils # (Auto) 0.1 Thou/mm3 (0.0-0.5); Eosinophils % (Auto) 2 % (0-10); Immature Granulocytes % (Auto) 0 % (0-0); Immature Granulocytes Auto 0.01 Thou/mm3 (0.00-0.00); Lymphocytes # (Auto) 1.2 Thou/mm3 (1.0-4.8); Lymphocytes % (Auto) 33 % (10-50); Mean Corpuscular HGB Conc 33.3 g/dl (31.0-37.0); Mean Corpuscular Hemoglobin 30.7 pg (25.0-35.0); Mean Corpuscular Volume 92 fL (80-100); Monocytes # (Auto) 0.4 Thou/mm3 (0.0-0.8); Monocytes % (Auto) 9 % (0-12); Neutrophils # (Auto) 2.1 Thou/mm3 (1.8-7.7); Neutrophils % (Auto) 55 % (37-80); Nucleated Red Blood Cell % 0 /100 WBC (0); Platelet Count 174 Thou/mm3 (140-440); RDW Standard Deviation 48.2 fL (35.1-43.9); Red Blood Count 4.56 Miln/mm3 (4.50-5.90); White Blood Count 3.8 Thou/mm3 (3.8-10.6)
[2024-09-27 09:35] LABS: Carcinoembryonic Antigen 2.9 ng/mL (0.0-5.0)
[2024-09-27 09:57] LABS: Alanine Aminotransferase 40 U/L (10-49); Albumin, Serum 4.8 gm/dL (3.4-4.8); Albumin/Globulin Ratio 1.7 (1.2-2.2); Alkaline Phosphatase 90 U/L (46-116); Anion Gap 6 (7-16); Aspartate Amino Transferase 29 U/L (0-34); BUN/Creatinine Ratio 12 Ratio (12-20); Bilirubin,Total 0.8 mg/dL (0.3-1.2); Blood Urea Nitrogen 14 mg/dL (9-23); Calcium 9.6 mg/dL (8.3-10.6); Calcium (Corrected) 9.6 mg/dL (8.5-10.1); Carbon Dioxide 28.9 mMol/L (20.0-31.0); Chloride 107 mMol/L (98-107); Creatinine (Component) 1.2 mg/dL (0.6-1.3); Globulin 2.9 gm/dL (2.3-3.5); Glucose 105 mg/dL (74-106); Osmolality,Calculated 283 (275-295); Potassium 4.6 mMol/L (3.4-5.1); Sodium 142 mMol/L (136-145); Thyroid Stimulating Hormone 1.64 uIU/mL (0.55-4.78); Total Protein 7.7 gm/dL (5.7-8.2); eGFR > 60 See Note
== END | disposition home or self-care (01) ==
LOC: COPL 08:07
PROVIDERS: PCP Internal Medicine; Referring Provider Internal Medicine Hematology & Oncology; Visit Provider Internal Medicine Hematology & Oncology
DX: C15.9 Malignant neoplasm of esophagus, unspecified (principal); E03.2 Hypothyroidism due to medicaments and other exogenous substances
CPT/HCPCS: 36415; 80053; 82378; 84443; 85025

== ENCOUNTER → 2024-10-10 | Outpatient (CLI) | payer MEDICARE, BC, SELFPAY ==
[2024-10-10 07:08] LABS: Misc Send Out* See Sep Rpt
[2024-10-10 09:03] LABS: Basophils # (Auto) 0.1 Thou/mm3 (0.0-0.2); Basophils % (Auto) 1 % (0-2.5); Eosinophils # (Auto) 0.1 Thou/mm3 (0.0-0.5); Eosinophils % (Auto) 2 % (0-10); Hematocrit 45.5 % (41.0-53.0); Immature Granulocytes % (Auto) 0 % (0-0); Immature Granulocytes Auto 0.01 Thou/mm3 (0.00-0.00); Lymphocytes # (Auto) 1.2 Thou/mm3 (1.0-4.8); Lymphocytes % (Auto) 34 % (10-50); Mean Corpuscular Hemoglobin 30.8 pg (25.0-35.0); Mean Corpuscular Volume 93 fL (80-100); Monocytes # (Auto) 0.4 Thou/mm3 (0.0-0.8); Monocytes % (Auto) 11 % (0-12); Neutrophils # (Auto) 1.8 Thou/mm3 (1.8-7.7); Neutrophils % (Auto) 52 % (37-80); Nucleated Red Blood Cell % 0 /100 WBC (0); Platelet Count 175 Thou/mm3 (140-440); Red Blood Count 4.87 Miln/mm3 (4.50-5.90); White Blood Count 3.5 Thou/mm3 (3.8-10.6)
[2024-10-10 09:24] LABS: Alanine Aminotransferase 37 U/L (10-49); Albumin, Serum 5.2 gm/dL (3.4-4.8); Albumin/Globulin Ratio 1.8 (1.2-2.2); Alkaline Phosphatase 87 U/L (46-116); Anion Gap 9 (7-16); Aspartate Amino Transferase 28 U/L (0-34); BUN/Creatinine Ratio 16 Ratio (12-20); Bilirubin,Total 0.9 mg/dL (0.3-1.2); Blood Urea Nitrogen 16 mg/dL (9-23); Calcium 9.9 mg/dL (8.3-10.6); Calcium (Corrected) 9.9 mg/dL (8.5-10.1); Carbon Dioxide 29.4 mMol/L (20.0-31.0); Chloride 103 mMol/L (98-107); Globulin 2.9 gm/dL (2.3-3.5); Glucose 111 mg/dL (74-106); Osmolality,Calculated 283 (275-295); Potassium 4.4 mMol/L (3.4-5.1); Sodium 141 mMol/L (136-145); Thyroid Stimulating Hormone 2.59 uIU/mL (0.55-4.78); Total Protein 8.1 gm/dL (5.7-8.2); eGFR > 60 See Note
== END | disposition home or self-care (01) ==
PROVIDERS: PCP Internal Medicine; Referring Provider Internal Medicine Hematology & Oncology; Visit Provider Internal Medicine Hematology & Oncology
DX: C15.9 Malignant neoplasm of esophagus, unspecified (principal); E03.2 Hypothyroidism due to medicaments and other exogenous substances
CPT/HCPCS: 36415; 80053; 84443; 85025

== ENCOUNTER → 2024-10-25 | Outpatient (CLI) | payer MEDICARE, BC, SELFPAY ==
[2024-10-25 08:39] LABS: Basophils # (Auto) 0.1 Thou/mm3 (0.0-0.2); Basophils % (Auto) 1 % (0-2.5); Eosinophils # (Auto) 0.1 Thou/mm3 (0.0-0.5); Eosinophils % (Auto) 2 % (0-10); Hematocrit 43.7 % (41.0-53.0); Hemoglobin 14.4 g/dL (13.5-16.0); Immature Granulocytes % (Auto) 0 % (0-0); Immature Granulocytes Auto 0.01 Thou/mm3 (0.00-0.00); Lymphocytes # (Auto) 1.2 Thou/mm3 (1.0-4.8); Lymphocytes % (Auto) 32 % (10-50); Mean Corpuscular Hemoglobin 30.7 pg (25.0-35.0); Mean Corpuscular Volume 93 fL (80-100); Monocytes # (Auto) 0.4 Thou/mm3 (0.0-0.8); Monocytes % (Auto) 11 % (0-12); Neutrophils % (Auto) 53 % (37-80); Nucleated Red Blood Cell % 0 /100 WBC (0); Platelet Count 168 Thou/mm3 (140-440); RDW Standard Deviation 47.7 fL (35.1-43.9); Red Blood Count 4.69 Miln/mm3 (4.50-5.90); White Blood Count 3.8 Thou/mm3 (3.8-10.6)
[2024-10-25 08:57] LABS: Alanine Aminotransferase 34 U/L (10-49); Albumin, Serum 4.9 gm/dL (3.4-4.8); Albumin/Globulin Ratio 1.7 (1.2-2.2); Alkaline Phosphatase 82 U/L (46-116); Anion Gap 9 (7-16); Aspartate Amino Transferase 32 U/L (0-34); BUN/Creatinine Ratio 15 Ratio (12-20); Bilirubin,Total 0.9 mg/dL (0.3-1.2); Blood Urea Nitrogen 15 mg/dL (9-23); Calcium 9.2 mg/dL (8.3-10.6); Calcium (Corrected) 9.2 mg/dL (8.5-10.1); Carbon Dioxide 27.6 mMol/L (20.0-31.0); Chloride 105 mMol/L (98-107); Globulin 2.9 gm/dL (2.3-3.5); Glucose 103 mg/dL (74-106); Osmolality,Calculated 283 (275-295); Potassium 4.3 mMol/L (3.4-5.1); Sodium 142 mMol/L (136-145); Thyroid Stimulating Hormone 3.02 uIU/mL (0.55-4.78); Total Protein 7.8 gm/dL (5.7-8.2); eGFR > 60 See Note
== END | disposition home or self-care (01) ==
LOC: SCTO 07:43
PROVIDERS: PCP Internal Medicine; Referring Provider Internal Medicine Hematology & Oncology; Visit Provider Internal Medicine Hematology & Oncology
DX: C15.9 Malignant neoplasm of esophagus, unspecified (principal); E03.2 Hypothyroidism due to medicaments and other exogenous substances
CPT/HCPCS: 36415; 80053; 84443; 85025

== ENCOUNTER 2024-10-27 08:45 | Outpatient (RCR) | payer MEDICARE, BC, SELFPAY | END 2024-11-05 23:59 | disposition home or self-care (01) | LOC: SCTC 08:45 | PROVIDERS: PCP Internal Medicine; Referring Provider Internal Medicine; Visit Provider Internal Medicine Hematology & Oncology | DX: Z51.11 Encounter for antineoplastic chemotherapy (principal); C15.9 Malignant neoplasm of esophagus, unspecified; Z90.49 Acquired absence of other specified parts of digestive tract; E03.9 Hypothyroidism, unspecified; Z79.890 Hormone replacement therapy; I10 Essential (primary) hypertension | CPT/HCPCS: 96413; A4216; J7040; J7050; J9299 ==

== ENCOUNTER → 2024-11-22 | Outpatient (CLI) | payer MEDICARE, BC, SELFPAY ==
[2024-11-22 09:39] LABS: Basophils # (Auto) 0.1 Thou/mm3 (0.0-0.2); Basophils % (Auto) 2 % (0-2.5); Eosinophils # (Auto) 0.1 Thou/mm3 (0.0-0.5); Eosinophils % (Auto) 2 % (0-10); Hematocrit 44.1 % (41.0-53.0); Hemoglobin 14.8 g/dL (13.5-16.0); Immature Granulocytes % (Auto) 0 % (0-0); Immature Granulocytes Auto 0.01 Thou/mm3 (0.00-0.00); Lymphocytes % (Auto) 25 % (10-50); Mean Corpuscular HGB Conc 33.6 g/dl (31.0-37.0); Mean Corpuscular Volume 92 fL (80-100); Monocytes # (Auto) 0.5 Thou/mm3 (0.0-0.8); Monocytes % (Auto) 13 % (0-12); Neutrophils # (Auto) 2.4 Thou/mm3 (1.8-7.7); Neutrophils % (Auto) 58 % (37-80); Nucleated Red Blood Cell % 0 /100 WBC (0); Platelet Count 167 Thou/mm3 (140-440); Red Blood Count 4.78 Miln/mm3 (4.50-5.90); White Blood Count 4.1 Thou/mm3 (3.8-10.6)
[2024-11-22 09:57] LABS: Alanine Aminotransferase 38 U/L (10-49); Albumin, Serum 4.8 gm/dL (3.4-4.8); Albumin/Globulin Ratio 1.9 (1.2-2.2); Alkaline Phosphatase 84 U/L (46-116); Anion Gap 7 (7-16); Aspartate Amino Transferase 32 U/L (0-34); BUN/Creatinine Ratio 14 Ratio (12-20); Bilirubin,Total 0.7 mg/dL (0.3-1.2); Blood Urea Nitrogen 14 mg/dL (9-23); Calcium 9.2 mg/dL (8.3-10.6); Calcium (Corrected) 9.2 mg/dL (8.5-10.1); Carbon Dioxide 28.9 mMol/L (20.0-31.0); Chloride 105 mMol/L (98-107); Globulin 2.5 gm/dL (2.3-3.5); Glucose 104 mg/dL (74-106); Osmolality,Calculated 281 (275-295); Potassium 4.6 mMol/L (3.4-5.1); Sodium 141 mMol/L (136-145); Thyroid Stimulating Hormone 1.93 uIU/mL (0.55-4.78); Total Protein 7.3 gm/dL (5.7-8.2); eGFR > 60 See Note
== END | disposition home or self-care (01) ==
LOC: SCTO 08:46
PROVIDERS: PCP Internal Medicine; Referring Provider Internal Medicine Hematology & Oncology; Visit Provider Internal Medicine Hematology & Oncology
DX: C15.9 Malignant neoplasm of esophagus, unspecified (principal); E03.9 Hypothyroidism, unspecified
CPT/HCPCS: 36415; 80053; 84443; 85025

== ENCOUNTER 2024-11-24 10:11 | Outpatient (RCR) | payer MEDICARE, BC, SELFPAY ==
--- NOTE | 2024-11-22 01:06 | CTCFLWUP_ITS ---
Patient: ATIF DOBSON : 1945 Page 2 of 10 FOLLOW UP NOTE DATE OF SERVICE: 11/16/2024 NAME: ATIF DOBSON ACCOUNT: [id number] : 1945 AGE: 79 INTERVAL HISTORY: Subjective: Chief Complaint Follow-up for esophageal cancer treatment and monitoring History of Present Illness Hammad Srivastava, a patient with a history of squamous cell cancer of the esophagus status post-esophagectomy and gastric pull-through, presents for follow-up of his cancer treatment. The patient is currently in remission and undergoing immunotherapy with Novello map. The patient reports no new symptoms or concerns. He has been adhering to his treatment regimen and continues to receive Novello map, which is planned to continue for 2 years. The patient's overall health status has improved, with the clinician noting that he is now in perfect health. However, the patient is still recovering from the effects of chemotherapy, which he underwent twice. He is experiencing some fatigue and reduced stamina, as evidenced by the recommendation to start with small walks. The patient's dental health is reported as good, though he may be experiencing veneer drier tailer than normal mouth conditions, a possible side effect of his treatments. He maintains regular dental check-ups every 6 months. 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 He is now encouraged to travel and enjoy life, indicating an improvement in his overall condition and quality of life. Medications and Supplements - Novello map - Continuing for 2 years - Treatment is working, patient is in remission Review of Systems HEENT: Positive for dry mouth. Objective: Laboratory, Imaging, and Diagnostic Test Results - DNA test for cancer: Negative - Netera blood test: Negative (0) - PET scan (October 2024): Negative - PET scan (October 2023): Negative - Ultrasound (08/18/2024): Negative - Bone density (07/14/2024): Normal - PET CT scan (10/11/2024): - Stable subcentimeter left upper paratracheal lymph node - Continued resolution of FDG uptake compatible with treated disease - No suspicious FDG-avid lesions - No enlarged lymph nodes - No free air or fluid collections - Thyroid function tests: Within normal limits ONCOLOGY HISTORY: DIAGNOSIS: Malignant neoplasm of esophagus, unspecified [ICD10] C15.9 DATE OF DIAGNOSIS: 01/13/2022 STAGE/TNM: Recurrent esophageal cancer TREATMENT HISTORY: Care?Plan Start?Date Cycle Day Intent Taxol?50mg/m*2?+?Carbo?AUC?2?+?Concurrent?XRT 04/15/2022 1 7 Curative?(primary) mFOLFOX-6?-?5FU?400?+?2400?CIV,?LVR?400,?OXALIplat?85?nivolumab 04/13/2023 1 14 Palliative OPDIvo 10/08/2023 1 14 Palliative OPDIvo?480mg?every?4?weeks 06/23/2024 1 28 Maintenance HISTORY OF PRESENT ILLNESS: Atif Dobson is a 79-year-old ENG speaking male with history of hypertension as well as hypothyroidism has the following oncology history. June 2021: Patient started noticing having trouble swallowing as well as a sensation of a mass lesion in the throat. Initially patient saw ENT physician and later saw Dr. Morillo direct service worker. 01/13/2022: Mr. Dobson had endoscopy performed by Dr. Morillo. 03/04/2022: Mr. Dobson had PET/CT scan done at [facility]. 03/10/2022: Mr. Dobosn had upper GI endoscopy with ultrasound? 03/14/2022: Mr. Dobson was seen by Dr. Morro Cobian, GI surgeon of [facility] who recommended neoadjuvant chemoradiation followed by possible surgery. 03/27/2022: Mr. Dobson was seen by Dr. Chapa, radiation oncologist here at [facility] cancer center. 06/15/2021 - 05/27/2022: Patient was treated with chemoradiation. For chemotherapy he was on weekly Taxol and carboplatin. 06/03/2022: PET/CT scan? 07/23/2022: Mr. Dobson had esophagectomy done at [facility]. Surgical pathology report is not available to me today. 09/26/2022: PET/CT scan? 02/19/2023: PET/CT scan? 04/13/2023?08/04/2023: Mr. Dobson received 7 cycle of modified FOLFOX 6 with nivolumab. 10/08/2019: He was started on single agent nivolumab. 09/16/2023 - 09/29/2023: Mr. Dobson received 3000 cGy radiation to the chest. 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 Tobacco?Pack?per?Day:?0 Tobacco?Use?Years:?0 Tobacco?Use:?Denies ETOH Use:?Drank 12pk/beer/day x 30yrs- Quit recently Drug?Note:?Denies Social History Note:?Live with ; daughter and son-in-law MEDICATIONS: 1. aspirin - 81 mg 1 tab Daily 2. atorvastatin - 10 mg 1 tab Daily 3. levothyroxine - 100 mcg 1 tab Daily 4. loratadine - 10 mg 1 tab Daily 5. omeprazole - 40 mg 1 Capsule Daily Medications Last Reconciled by Alesia Paulino MA on 11/16/2024 ALLERGIES: No Known Drug Allergies REVIEW OF SYSTEMS: A complete 14-point review of systems was performed and is negative except as noted in interval history. PHYSICAL EXAMINATION: VITAL SIGNS: Temperature?99.4, B/P?127/74, Oxygen?Saturation?96% Weight?145?lbs (Change?since?10/27/24:?-1?lbs) PAIN: 0 - No pain ECOG Performance Status: 0 - Asymptomatic and fully active GENERAL APPEARANCE: Appears well, in no apparent distress, appropriately interactive. HEENT: Normocephalic, no temporal wasting, normal conjunctiva, no scleral icterus, normal hearing, lips without lesions, neck normal range of motion. CARDIOVASCULAR: Not assessed. PULMONARY: Normal respiratory effort, no respiratory distress or use of accessory muscles, speaking in full sentences, no tachypnea. EXTREMITIES: No pedal edema or cyanosis. SKIN: Normal skin appearance. NEUROLOGIC: Alert and oriented x4. PSHYCHIATRIC: Appropriate affect, mood normal, behavior normal, intact thought and speech. LABORATORY DATA: I have personally reviewed and interpreted each of the patient?s relevant lab tests, abnormal findings are below: Date 10/10/24 10/25/24 ??WHITE?BLOOD?COUNT?(Thou/mm3) 3.5?L 3.8 ??RED?BLOOD?COUNT?(Miln/mm3) 4.87 4.69 ??HEMOGLOBIN?(gm/dl) 15.0 14.4 ??HEMATOCRIT?(%) 45.5 43.7 ??PLATELET?COUNT?(Thou/mm3) 175 168 ??NEUTROPHILS?%,?AUTO?(%) 52 53 ??LYMPH?%,?AUTO?(%) 34 32 ??NEUTROPHILS,?AUTO?(Thou/mm3) 1.8 2.0 ??GLUCOSE,RANDOM?(mg/dL) 111?H 103 ??BLOOD?UREA?NITROGEN?(mg/dL) 16 15 ??CREATININE?(mg/dL) 1.00 1.00 ??SODIUM?(mmol/L) 141 142 ??POTASSIUM?(mmol/L) 4.4 4.3 ??CHLORIDE?(mmol/L) 103 105 ??CrCl?(CandG)?(ml/min) 57.71 56.79 ??AST/SGOT?(Unit/L) 28 32 ??ALT/SGPT?(Unit/L) 37 34 ??ALKALINE?PHOSPHATASE?(Unit/L) 87 82 ??BILIRUBIN,?TOTAL?(mg/dL) 0.9 0.9 ??PROTEIN?TOTAL?(gm/dl) 8.1 7.8 ??ALBUMIN,?SERUM?(gm/dl) 5.2?H 4.9?H ??GLOBULIN?(gm/dl) 2.9 2.9 ??ALBUMIN/GLOBULIN?RATIO 1.8 1.7 ??CALCIUM,?SERUM?(mg/dL) 9.9 9.2 ??CALCIUM?SERUM?(CORRECTED)?(mg/dL) 9.9 9.2 ASSESSMENT/PLAN: 1) Recurrent invasive squamous cancer of esophagus 2) Patient had recurrence in the peritracheal lymph node which was similar to his initial cancer which was diagnosed in 2021 Clinical stage 1 (GEORGE) 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 Squamous cell carcinoma of esophagus, status post-esophagectomy Assessment: Patient is currently in remission from squamous cell carcinoma of the esophagus. Recent diagnostic tests show favorable results: DNA test for cancer is negative with 87-90% accuracy, and Netera blood test is consistently negative (zero). PET CT scan from October 11, 2024, shows stable subcentimeter left upper paratracheal lymph node with continued resolution of FDG uptake, compatible with treated disease. No suspicious FDG-avid lesions, enlarged lymph nodes, free air, or fluid collections were observed. A small growth persists but has decreased in size and is likely scar tissue or tissue given the negative Netera results. Ultrasound on August 18, 2024, was negative, and bone density on July 14, 2024, was normal. 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 Plan: - Continue (immunotherapy) for 2 years - Perform PET scan in October 2025 - Continue Netera blood test every 3 months - Maintain annual PET scans if Netera remains negative - Follow-up appointment in 3 months - Encourage gradual increase in physical activity, starting with small walks - Advise to drink plenty of fluids and avoid sun exposure - Recommend use of olive oil in salads and coconut oil for gum massage after brushing - Continue routine dental check-ups every 6 months Thyroid function Assessment: Thyroid function is currently within normal limits based on recent laboratory results. Plan: - No changes to current management - Continue monitoring as part of routine follow-up ORDERS: Order # Description [id number] CBC + Comprehensive Metabolic Panel [id number] Lab Appointment [id number] Follow Up Appointment [id number] CBC + Comprehensive Metabolic Panel [id number] Lab Appointment [id number] Follow Up Appointment [id number] CBC + Comprehensive Metabolic Panel [id number] Lab Appointment [id number] Follow Up Appointment [id number] CBC + Comprehensive Metabolic Panel [id number] Lab Appointment [id number] Follow Up Appointment [id number] CBC + Comprehensive Metabolic Panel [id number] Lab Appointment [id number] Follow Up Appointment [id number] CBC + Comprehensive Metabolic Panel [id number] Lab Appointment [id number] Follow Up Appointment [id number] CBC + Comprehensive Metabolic Panel [id number] Lab Appointment [id number] Follow Up Appointment [id number] CBC + Comprehensive Metabolic Panel [id number] Lab Appointment [id number] Follow Up Appointment [id number] CBC + Comprehensive Metabolic Panel [id number] Lab Appointment [id number] Follow Up Appointment RETURN TO CLINIC: BILLING AND COMPLIANCE: I reviewed external records from providers outside my specialty as summarized above. I spent a total of 50 minutes on this patient?s care on the day of their visit excluding time spent related to any billed procedures. This time includes time spent with the patient as well as time spent documenting in the medical record, reviewing patients records and tests, obtaining history, placing orders, communicating with other healthcare professionals, counseling the patient, family or caregiver, and/or care coordination for the diagnoses above. Electronically Signed by: {Object.Sanct_ID*PnP.NameFL@M}, {Object.Sanct_ID*PnP.Suffix@U} D: {Object.Sanct_Date} T: {Object.Sanct_Time} CC: Krys?Ilia,? PCP: Lupillo Cisneros Referring: Lupillo Cisneros This document was completed utilizing speech recognition software. Grammatical errors, random word insertions, pronoun errors, and incomplete sentences are an occasional consequence of this system due to software limitations, ambient noise, and hardware issues. Any formal questions or concerns about the content, text or information contained within the body of this dictation should be directly addressed to the provider for clarification.
== END 2024-12-05 23:59 | disposition home or self-care (01) ==
LOC: SCTC 10:11
PROVIDERS: PCP Internal Medicine; Referring Provider Internal Medicine Hematology & Oncology; Visit Provider Internal Medicine Hematology & Oncology
DX: Z51.11 Encounter for antineoplastic chemotherapy (principal); C15.5 Malignant neoplasm of lower third of esophagus; Z90.49 Acquired absence of other specified parts of digestive tract
CPT/HCPCS: 96413; 99212; A4216; J7040; J7050; J9299; G0463

== ENCOUNTER → 2024-12-20 | Outpatient (CLI) | payer MEDICARE, BC, SELFPAY ==
[2024-12-20 09:47] LABS: Basophils # (Auto) 0.1 Thou/mm3 (0.0-0.2); Basophils % (Auto) 1 % (0-2.5); Eosinophils # (Auto) 0.1 Thou/mm3 (0.0-0.5); Eosinophils % (Auto) 2 % (0-10); Hematocrit 44.6 % (41.0-53.0); Hemoglobin 15.1 g/dL (13.5-16.0); Immature Granulocytes Auto 0.03 Thou/mm3 (0.00-0.00); Lymphocytes # (Auto) 1.3 Thou/mm3 (1.0-4.8); Lymphocytes % (Auto) 30 % (10-50); Mean Corpuscular HGB Conc 33.9 g/dl (31.0-37.0); Mean Corpuscular Hemoglobin 30.4 pg (25.0-35.0); Mean Corpuscular Volume 90 fL (80-100); Monocytes # (Auto) 0.5 Thou/mm3 (0.0-0.8); Monocytes % (Auto) 12 % (0-12); Neutrophils # (Auto) 2.3 Thou/mm3 (1.8-7.7); Neutrophils % (Auto) 54 % (37-80); Nucleated Red Blood Cell # 0.00 Thou/mm3 (0.00-0.00); Nucleated Red Blood Cell % 0 /100 WBC (0); Platelet Count 165 Thou/mm3 (140-440); RDW Standard Deviation 42.9 fL (35.1-43.9); Red Blood Count 4.96 Miln/mm3 (4.50-5.90); White Blood Count 4.3 Thou/mm3 (3.8-10.6)
[2024-12-20 09:51] LABS: Alanine Aminotransferase 57 U/L (10-49); Albumin, Serum 4.9 gm/dL (3.4-4.8); Albumin/Globulin Ratio 1.8 (1.2-2.2); Alkaline Phosphatase 89 U/L (46-116); Anion Gap 10 (7-16); Aspartate Amino Transferase 43 U/L (0-34); BUN/Creatinine Ratio 15 Ratio (12-20); Bilirubin,Total 0.8 mg/dL (0.3-1.2); Blood Urea Nitrogen 16 mg/dL (9-23); Calcium 9.9 mg/dL (8.3-10.6); Calcium (Corrected) 9.9 mg/dL (8.5-10.1); Carbon Dioxide 29.1 mMol/L (20.0-31.0); Chloride 105 mMol/L (98-107); Creatinine (Component) 1.1 mg/dL (0.6-1.3); Globulin 2.7 gm/dL (2.3-3.5); Glucose 89 mg/dL (74-106); Osmolality,Calculated 287 (275-295); Potassium 4.8 mMol/L (3.4-5.1); Sodium 144 mMol/L (136-145); Thyroid Stimulating Hormone 2.75 uIU/mL (0.55-4.78); Total Protein 7.6 gm/dL (5.7-8.2); eGFR > 60 See Note
== END | disposition home or self-care (01) ==
LOC: SCTO 08:14
PROVIDERS: PCP Internal Medicine; Referring Provider Internal Medicine Hematology & Oncology; Visit Provider Internal Medicine Hematology & Oncology
DX: C15.9 Malignant neoplasm of esophagus, unspecified (principal)
CPT/HCPCS: 36415; 80053; 84443; 85025

== ENCOUNTER 2024-12-22 10:21 | Outpatient (RCR) | payer MEDICARE, BC, SELFPAY | END 2025-01-05 23:59 | disposition home or self-care (01) | LOC: SCTC 10:21 | PROVIDERS: PCP Internal Medicine; Referring Provider Internal Medicine Hematology & Oncology; Visit Provider Internal Medicine Hematology & Oncology | DX: Z51.11 Encounter for antineoplastic chemotherapy (principal); C15.4 Malignant neoplasm of middle third of esophagus; Z90.49 Acquired absence of other specified parts of digestive tract | CPT/HCPCS: 96413; J7050; J9299 ==

== ENCOUNTER → 2024-12-27 | Outpatient (CLI) | payer MEDICARE, BC, SELFPAY ==
[2024-12-27 08:37] LABS: Collection Type, Urine Clean Catch; Squamous Epithelial Cell,Urine 0 /hpf (0-5)
[2024-12-27 08:55] LABS: Basophils # (Auto) 0.1 Thou/mm3 (0.0-0.2); Basophils % (Auto) 2 % (0-2.5); Eosinophils # (Auto) 0.1 Thou/mm3 (0.0-0.5); Eosinophils % (Auto) 2 % (0-10); Hematocrit 44.8 % (41.0-53.0); Hemoglobin 15.1 g/dL (13.5-16.0); Immature Granulocytes Auto 0.01 Thou/mm3 (0.00-0.00); Lymphocytes # (Auto) 1.3 Thou/mm3 (1.0-4.8); Lymphocytes % (Auto) 34 % (10-50); Mean Corpuscular HGB Conc 33.7 g/dl (31.0-37.0); Mean Corpuscular Hemoglobin 30.4 pg (25.0-35.0); Mean Corpuscular Volume 90 fL (80-100); Monocytes # (Auto) 0.4 Thou/mm3 (0.0-0.8); Monocytes % (Auto) 11 % (0-12); Neutrophils # (Auto) 1.9 Thou/mm3 (1.8-7.7); Neutrophils % (Auto) 51 % (37-80); Nucleated Red Blood Cell # 0.00 Thou/mm3 (0.00-0.00); Nucleated Red Blood Cell % 0 /100 WBC (0); Platelet Count 154 Thou/mm3 (140-440); RDW Standard Deviation 43.3 fL (35.1-43.9); Red Blood Count 4.96 Miln/mm3 (4.50-5.90); White Blood Count 3.8 Thou/mm3 (3.8-10.6)
[2024-12-27 09:05] LABS: Glucose Estimated Average 134 mg/dL (80-131); Hemoglobin A1C 6.3 % Hgb (4.8-6.0)
[2024-12-27 09:06] LABS: Bilirubin,Urine Negative (Negative); Blood,Urine Negative (Negative); Clarity,Urine Clear (Clear/Hazy); Color,Urine Lt-Yellow (Lt Yel-Yel); Glucose, Urine Negative (Negative); Ketones,Urine Negative (Negative); Leukocyte Esterase,Urine Negative (Negative); Nitrite,Urine Negative (Negative); PH,Urine 7.0 (5.0-7.0); Protein,Urine Negative (Neg - Trace); RBC,Urine 1 /hpf (0-3); Specific Gravity,Urine 1.016 (1.001-1.035); Urobilinogen,Urine Negative mg/dL (0.0-1.0); WBC,Urine 1 /hpf (0-5)
[2024-12-27 09:24] LABS: Prostate Specific Antigen 2.44 ng/mL (0-4.00)
[2024-12-27 09:28] LABS: Alanine Aminotransferase 51 U/L (10-49); Albumin, Serum 4.9 gm/dL (3.4-4.8); Albumin/Globulin Ratio 1.7 (1.2-2.2); Alkaline Phosphatase 85 U/L (46-116); Anion Gap 10 (7-16); Aspartate Amino Transferase 41 U/L (0-34); BUN/Creatinine Ratio 11 Ratio (12-20); Bilirubin,Total 0.8 mg/dL (0.3-1.2); Blood Urea Nitrogen 11 mg/dL (9-23); Calcium 9.5 mg/dL (8.3-10.6); Calcium (Corrected) 9.5 mg/dL (8.5-10.1); Carbon Dioxide 26.2 mMol/L (20.0-31.0); Cardiac Risk Estimate 3.0 RATIO (4.0-6.7); Chloride 105 mMol/L (98-107); Cholesterol 133 mg/dL (132-200); Creatinine (Component) 1.0 mg/dL (0.6-1.3); Globulin 2.9 gm/dL (2.3-3.5); Glucose 106 mg/dL (74-106); HDL Cholesterol 45 mg/dL (40-60); LDL Cholesterol,Calculated 74 mg/dL (0-130); Osmolality,Calculated 280 (275-295); Potassium 4.3 mMol/L (3.4-5.1); Sodium 141 mMol/L (136-145); Thyroid Stimulating Hormone 2.60 uIU/mL (0.55-4.78); Total Protein 7.8 gm/dL (5.7-8.2); Triglycerides 72 mg/dL (30-150); Uric Acid 5.9 mg/dL (3.7-9.2); eGFR > 60 See Note
[2024-12-27 09:33] LABS: Vitamin B12 611 pg/mL (211-911); Vitamin D 25 Hydroxy Total 50.3 ng/mL (7.3-40.2)
== END | disposition home or self-care (01) ==
LOC: COPL 06:47
PROVIDERS: PCP Internal Medicine; Referring Provider Internal Medicine; Visit Provider Internal Medicine
DX: Z00.00 Encounter for general adult medical examination without abnormal findings (principal); I10 Essential (primary) hypertension; E78.5 Hyperlipidemia, unspecified; D51.9 Vitamin B12 deficiency anemia, unspecified; E55.9 Vitamin D deficiency, unspecified
CPT/HCPCS: 36415; 80053; 80061; 81001; 82306; 82607; 83036; 84153; 84443; 84550; 85025

== ENCOUNTER → 2025-01-17 | Outpatient (CLI) | payer MEDICARE, BC, SELFPAY ==
[2025-01-17 08:53] LABS: Basophils # (Auto) 0.1 Thou/mm3 (0.0-0.2); Basophils % (Auto) 1 % (0-2.5); Eosinophils # (Auto) 0.1 Thou/mm3 (0.0-0.5); Eosinophils % (Auto) 3 % (0-10); Hematocrit 47.7 % (41.0-53.0); Hemoglobin 16.1 g/dL (13.5-16.0); Immature Granulocytes Auto 0.02 Thou/mm3 (0.00-0.00); Lymphocytes # (Auto) 1.3 Thou/mm3 (1.0-4.8); Lymphocytes % (Auto) 32 % (10-50); Mean Corpuscular HGB Conc 33.8 g/dl (31.0-37.0); Mean Corpuscular Hemoglobin 31.2 pg (25.0-35.0); Mean Corpuscular Volume 92 fL (80-100); Monocytes # (Auto) 0.5 Thou/mm3 (0.0-0.8); Monocytes % (Auto) 11 % (0-12); Neutrophils # (Auto) 2.1 Thou/mm3 (1.8-7.7); Neutrophils % (Auto) 52 % (37-80); Nucleated Red Blood Cell # 0.00 Thou/mm3 (0.00-0.00); Nucleated Red Blood Cell % 0 /100 WBC (0); Platelet Count 167 Thou/mm3 (140-440); RDW Standard Deviation 44.4 fL (35.1-43.9); Red Blood Count 5.16 Miln/mm3 (4.50-5.90); White Blood Count 4.0 Thou/mm3 (3.8-10.6)
[2025-01-17 09:04] LABS: Alanine Aminotransferase 47 U/L (10-49); Albumin, Serum 5.2 gm/dL (3.4-4.8); Albumin/Globulin Ratio 1.9 (1.2-2.2); Alkaline Phosphatase 84 U/L (46-116); Anion Gap 9 (7-16); Aspartate Amino Transferase 33 U/L (0-34); BUN/Creatinine Ratio 11 Ratio (12-20); Bilirubin,Total 1.0 mg/dL (0.3-1.2); Blood Urea Nitrogen 12 mg/dL (9-23); Calcium 10.8 mg/dL (8.3-10.6); Calcium (Corrected) 10.8 mg/dL (8.5-10.1); Carbon Dioxide 28.6 mMol/L (20.0-31.0); Chloride 103 mMol/L (98-107); Creatinine (Component) 1.1 mg/dL (0.6-1.3); Globulin 2.8 gm/dL (2.3-3.5); Glucose 107 mg/dL (74-106); Osmolality,Calculated 280 (275-295); Potassium 4.8 mMol/L (3.4-5.1); Sodium 141 mMol/L (136-145); Thyroid Stimulating Hormone 3.41 uIU/mL (0.55-4.78); Total Protein 8.0 gm/dL (5.7-8.2); eGFR > 60 See Note
== END | disposition home or self-care (01) ==
LOC: SCTO 06:38
PROVIDERS: PCP Internal Medicine; Referring Provider Internal Medicine Hematology & Oncology; Visit Provider Internal Medicine Hematology & Oncology
DX: C15.9 Malignant neoplasm of esophagus, unspecified (principal)
CPT/HCPCS: 36415; 80053; 84443; 85025

== ENCOUNTER 2025-01-19 10:15 | Outpatient (RCR) | payer MEDICARE, BC, SELFPAY ==
--- NOTE | 2025-01-17 09:56 | CTCFLWUP_ITS ---
[facility] [address] [place], [place] [address] FOLLOW-UP NOTE Date: 01/17/2025 MR#: [id number] Name: LUTHER DOBSON : 1945 Dx: C15.9 Malignant neoplasm of esophagus, unspecified Identification. Moderate differentiated invasive squamous SCCA mid esophagus 03/10/2022 clinical stage I. Chemoradiation 04/15/2022 through 01/17/2022 4140 cGy. Esophagectomy 07/23/2022 no residual cancer with multiple lymph nodes removed. PET scan 09/25/2022 clear. PET scan 03/01/2023 interval recurrence left pretracheal lymph node similar to previously treated disease. Received modified FOLFOX 6 nivolumab 04/13/2023 through 08/04/2023. Single agent nivolumab since 08/27/2023. Additional radiotherapy 3000 cGy in 10 fractions via VMAT completed 09/29/2023. Most recent PET 10/11/2024 no suspicious FDG avid lesions. Signatera negative 11/16/2024. Patient experiencing some swallowing difficulties due to prior surgery and subsequent treatments but states that he is careful at the swallowing and has all but regained all but 5 pounds of his prior cancer weight. Denies any pain. Lungs clear no adenopathy felt. Assessment. 1. History of stage I moderate differentiated SCC mid esophagus CA neoadjuvant chemoradiation esophagectomy [facility] 07/23/2022. Complete response 2. Additional radiation therapy with systemic therapy for recurrence completed 09/29/2023. 3.Most recent PET scan 10/11/2024 favorable with Signatera remaining negative. Clinically doing well. 4. . Patient being followed closely by Dr. Morgan receiving nivolumab. Has follow-up at [facility] as well. I will see him as needed in the future. Cc: Sarath Beasley MD Electronically signed by: Royer Chapa M.D. 01/17/2025 9:54 AM
== END 2025-02-05 23:59 | disposition home or self-care (01) ==
LOC: SCTC 10:15
PROVIDERS: PCP Internal Medicine; Referring Provider Internal Medicine; Visit Provider Radiology Therapeutic Radiology
DX: Z51.11 Encounter for antineoplastic chemotherapy (principal); C15.4 Malignant neoplasm of middle third of esophagus; Z90.49 Acquired absence of other specified parts of digestive tract
CPT/HCPCS: 96413; 99212; A4216; J7040; J7050; J9299; G0463

== ENCOUNTER → 2025-02-14 | Outpatient (CLI) | payer MEDICARE, BC, SELFPAY ==
[2025-02-14 08:51] LABS: Basophils # (Auto) 0.1 Thou/mm3 (0.0-0.2); Basophils % (Auto) 1 % (0-2.5); Eosinophils # (Auto) 0.1 Thou/mm3 (0.0-0.5); Eosinophils % (Auto) 2 % (0-10); Hematocrit 46.8 % (41.0-53.0); Hemoglobin 15.6 g/dL (13.5-16.0); Immature Granulocytes Auto 0.01 Thou/mm3 (0.00-0.00); Lymphocytes # (Auto) 1.3 Thou/mm3 (1.0-4.8); Lymphocytes % (Auto) 32 % (10-50); Mean Corpuscular HGB Conc 33.3 g/dl (31.0-37.0); Mean Corpuscular Hemoglobin 30.7 pg (25.0-35.0); Mean Corpuscular Volume 92 fL (80-100); Monocytes # (Auto) 0.4 Thou/mm3 (0.0-0.8); Monocytes % (Auto) 11 % (0-12); Neutrophils # (Auto) 2.2 Thou/mm3 (1.8-7.7); Neutrophils % (Auto) 54 % (37-80); Nucleated Red Blood Cell # 0.00 Thou/mm3 (0.00-0.00); Nucleated Red Blood Cell % 0 /100 WBC (0); Platelet Count 157 Thou/mm3 (140-440); RDW Standard Deviation 45.4 fL (35.1-43.9); Red Blood Count 5.08 Miln/mm3 (4.50-5.90); White Blood Count 4.0 Thou/mm3 (3.8-10.6)
[2025-02-14 09:22] LABS: Alanine Aminotransferase 39 U/L (10-49); Albumin, Serum 4.8 gm/dL (3.4-4.8); Albumin/Globulin Ratio 1.8 (1.2-2.2); Alkaline Phosphatase 87 U/L (46-116); Anion Gap 10 (7-16); Aspartate Amino Transferase 32 U/L (0-34); BUN/Creatinine Ratio 18 Ratio (12-20); Bilirubin,Total 1.0 mg/dL (0.3-1.2); Blood Urea Nitrogen 18 mg/dL (9-23); Calcium 10.0 mg/dL (8.3-10.6); Calcium (Corrected) 10.0 mg/dL (8.5-10.1); Carbon Dioxide 27.6 mMol/L (20.0-31.0); Chloride 103 mMol/L (98-107); Creatinine (Component) 1.0 mg/dL (0.6-1.3); Globulin 2.6 gm/dL (2.3-3.5); Glucose 97 mg/dL (74-106); Osmolality,Calculated 283 (275-295); Potassium 4.4 mMol/L (3.4-5.1); Sodium 141 mMol/L (136-145); Thyroid Stimulating Hormone 3.24 uIU/mL (0.55-4.78); Total Protein 7.4 gm/dL (5.7-8.2); eGFR > 60 See Note
== END | disposition home or self-care (01) ==
LOC: CDIM 06:41
PROVIDERS: PCP Internal Medicine; Referring Provider Internal Medicine Hematology & Oncology; Visit Provider Internal Medicine Hematology & Oncology
DX: C15.9 Malignant neoplasm of esophagus, unspecified (principal); E03.9 Hypothyroidism, unspecified
CPT/HCPCS: 36415; 80053; 84443; 85025

== ENCOUNTER 2025-02-20 11:13 | Outpatient (RCR) | payer MEDICARE, BC, SELFPAY ==
--- NOTE | 2025-02-20 11:57 | CTCFLWUP_ITS ---
Patient: ATIF DOBSON : 1945 Page 6 of 8 FOLLOW UP NOTE DATE OF SERVICE: 02/20/2025 NAME: ATIF DOBSON ACCOUNT: [id number] : 1945 AGE: 79 INTERVAL HISTORY: Subjective: Chief Complaint Follow-up for esophageal cancer treatment and monitoring. Patient is on opdivo and doing well. 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 The patient is currently in remission and undergoing immunotherapy with Novello map. The patient reports no new symptoms or concerns. He has been adhering to his treatment regimen and continues to receive Novello map, which is planned to continue for 2 years. The patient's overall health status has improved, with the clinician noting that he is now in perfect health. However, the patient is still recovering from the effects of chemotherapy, which he underwent twice. He is experiencing some fatigue and reduced stamina, as evidenced by the recommendation to start with small walks. The patient's dental health is reported as good, though he may be experiencing spray drier operator than normal mouth conditions, a possible side effect of his treatments. He maintains regular dental check-ups every 6 months. 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 He is now encouraged to travel and enjoy life, indicating an improvement in his overall condition and quality of life. Medications and Supplements - Novello map - Continuing for 2 years - Treatment is working, patient is in remission Review of Systems HEENT: Positive for dry mouth. Objective: Laboratory, Imaging, and Diagnostic Test Results - DNA test for cancer: Negative - Netera blood test: Negative (0) - PET scan (October 2024): Negative - PET scan (October 2023): Negative - Ultrasound (08/18/2024): Negative - Bone density (07/14/2024): Normal - PET CT scan (10/11/2024): - Stable subcentimeter left upper paratracheal lymph node - Continued resolution of FDG uptake compatible with treated disease - No suspicious FDG-avid lesions - No enlarged lymph nodes - No free air or fluid collections - Thyroid function tests: Within normal limits ONCOLOGY HISTORY: DIAGNOSIS: Malignant neoplasm of esophagus, unspecified [ICD10] C15.9 DATE OF DIAGNOSIS: 01/13/2022 STAGE/TNM: Recurrent esophageal cancer TREATMENT HISTORY: Care?Plan Start?Date Cycle Day Intent Taxol?50mg/m*2?+?Carbo?AUC?2?+?Concurrent?XRT 04/15/2022 1 7 Curative?(primary) mFOLFOX-6?-?5FU?400?+?2400?CIV,?LVR?400,?OXALIplat?85?nivolumab 04/13/2023 1 14 Palliative OPDIvo 10/08/2023 1 14 Palliative OPDIvo?480mg?every?4?weeks 06/23/2024 1 28 Maintenance HISTORY OF PRESENT ILLNESS: Atif Dobson is a 79-year-old ENG speaking male with history of hypertension as well as hypothyroidism has the following oncology history. June 2021: Patient started noticing having trouble swallowing as well as a sensation of a mass lesion in the throat. 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 01/13/2022: Mr. Dobson had endoscopy performed by Dr. Morillo. 03/04/2022: Mr. Dobson had PET/CT scan done at [facility]. 03/10/2022: Mr. Dobson had upper GI endoscopy with ultrasound? 03/14/2022: Mr. Dobson was seen by Dr. Morro Cobian, GI surgeon of [facility] who recommended neoadjuvant chemoradiation followed by possible surgery. 03/27/2022: Mr. Dobson was seen by Dr. Chapa, radiation oncologist here at [facility] cancer center. 06/15/2021 - 05/27/2022: Patient was treated with chemoradiation. For chemotherapy he was on weekly Taxol and carboplatin. 06/03/2022: PET/CT scan? 07/23/2022: Mr. Dobson had esophagectomy done at [facility]. Surgical pathology report is not available to me today. 09/26/2022: PET/CT scan? 02/19/2023: PET/CT scan? 04/13/2023?08/04/2023: Mr. Dobson received 7 cycle of modified FOLFOX 6 with nivolumab. 10/08/2019: He was started on single agent nivolumab. 09/16/2023 - 09/29/2023: Mr. Dobson received 3000 cGy radiation to the chest. 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 Tobacco?Pack?per?Day:?0 Tobacco?Use?Years:?0 Tobacco?Use:?Denies ETOH Use:?Drank 12pk/beer/day x 30yrs- Quit recently Drug?Note:?Denies Social History Note:?Live with ; daughter and son-in-law MEDICATIONS: 1. aspirin - 81 mg 1 tab Daily 2. atorvastatin - 10 mg 1 tab Daily 3. levothyroxine - 100 mcg 1 tab Daily 4. loratadine - 10 mg 1 tab Daily 5. omeprazole - 40 mg 1 Capsule Daily Medications Last Reconciled by Alesia Paulino MA on 11/16/2024 ALLERGIES: No Known Drug Allergies REVIEW OF SYSTEMS: A complete 14-point review of systems was performed and is negative except as noted in interval history. PHYSICAL EXAMINATION: VITAL SIGNS: PAIN: 0 - No pain ECOG Performance Status: 0 - Asymptomatic and fully active GENERAL APPEARANCE: Appears well, in no apparent distress, appropriately interactive. HEENT: Normocephalic, no temporal wasting, normal conjunctiva, no scleral icterus, normal hearing, lips without lesions, neck normal range of motion. CARDIOVASCULAR: Not assessed. PULMONARY: Normal respiratory effort, no respiratory distress or use of accessory muscles, speaking in full sentences, no tachypnea. EXTREMITIES: No pedal edema or cyanosis. SKIN: Normal skin appearance. NEUROLOGIC: Alert and oriented x4. PSHYCHIATRIC: Appropriate affect, mood normal, behavior normal, intact thought and speech. LABORATORY DATA: I have personally reviewed and interpreted each of the patient?s relevant lab tests, abnormal findings are below: Date 01/17/25 02/14/25 ??WHITE?BLOOD?COUNT?(Thou/mm3) 4.0 4.0 ??RED?BLOOD?COUNT?(Miln/mm3) 5.16 5.08 ??HEMOGLOBIN?(gm/dl) 16.1?H 15.6 ??HEMATOCRIT?(%) 47.7 46.8 ??PLATELET?COUNT?(Thou/mm3) 167 157 ??NEUTROPHILS?%,?AUTO?(%) 52 54 ??LYMPH?%,?AUTO?(%) 32 32 ??NEUTROPHILS,?AUTO?(Thou/mm3) 2.1 2.2 ??GLUCOSE,RANDOM?(mg/dL) 107?H 97 ??BLOOD?UREA?NITROGEN?(mg/dL) 12 18 ??CREATININE?(mg/dL) 1.10 1.00 ??SODIUM?(mmol/L) 141 141 ??POTASSIUM?(mmol/L) 4.8 4.4 ??CHLORIDE?(mmol/L) 103 103 ??CrCl?(CandG)?(ml/min) 51.42 55.78 ??AST/SGOT?(Unit/L) 33 32 ??ALT/SGPT?(Unit/L) 47 39 ??ALKALINE?PHOSPHATASE?(Unit/L) 84 87 ??BILIRUBIN,?TOTAL?(mg/dL) 1.0 1.0 ??PROTEIN?TOTAL?(gm/dl) 8.0 7.4 ??ALBUMIN,?SERUM?(gm/dl) 5.2?H 4.8 ??GLOBULIN?(gm/dl) 2.8 2.6 ??ALBUMIN/GLOBULIN?RATIO 1.9 1.8 ??CALCIUM,?SERUM?(mg/dL) 10.8?H 10.0 ??CALCIUM?SERUM?(CORRECTED)?(mg/dL) 10.8?H 10.0 ASSESSMENT/PLAN: 1) Recurrent invasive squamous cancer of esophagus 2) Patient had recurrence in the peritracheal lymph node which was similar to his initial cancer which was diagnosed in 2021 Clinical stage 1 (GEORGE) 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 (03/10/2022) Patient had a esophagectomy done in July 2022 at [facility] Patient initially received chemoradiation with weekly carboplatin Taxol Next PET scan was negative in September 2022 patient had recurrence in the pretracheal lymph node And received FOLFOX 6 with the nivolumab and radiation with concurrent S-FU with radiation Patient has been on nivolumab Last scan in October was stable 02/2024 Hammad Srivastava, with a 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 Squamous cell carcinoma of esophagus, status post-esophagectomy Assessment: Patient is currently in remission from squamous cell carcinoma of the esophagus. Recent diagnostic tests show favorable results: DNA test for cancer is negative with 87-90% accuracy, and Netera blood test is consistently negative (zero). PET CT scan from October 11, 2024, shows stable subcentimeter left upper paratracheal lymph node with continued resolution of FDG uptake, compatible with treated disease. No suspicious FDG-avid lesions, enlarged lymph nodes, free air, or fluid collections were observed. A small growth persists but has decreased in size and is likely scar tissue or tissue given the negative Netera results. Ultrasound on August 18, 2024, was negative, and bone density on July 14, 2024, was normal. 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 Plan: - Continue (immunotherapy) for 2 years -Ordered CT scan for February- Co ntinue Netera blood test every 3 months .patient has not done the recent Anatera Follow-up in 2 months - Encourage gradual increase in physical activity, starting with small walks Thyroid function Assessment: Thyroid function is currently within normal limits based on recent laboratory results. Plan: - No changes to current management - Continue monitoring as part of routine follow-up ORDERS: Order # Description [id number] Comprehensive Metabolic Panel - 12 + CBC with Auto Diff [id number] CT Scan + Chest + Abdomen and Pelvis + With Contrast [id number] MD Follow Up 2 Months RETURN TO CLINIC: I reviewed the diagnosis, prognosis, and recommended treatment/procedure options with the patient (and/or their legal provider relations representative), including the potential benefits, risks, side effects and alternative therapies. We also discussed the option of no treatment and the possibility of clinical trial participation, if applicable. All questions were addressed, and they demonstrated understanding. They provided informed consent to proceed with the proposed plan of care. BILLING AND COMPLIANCE: I reviewed external records from providers outside my specialty as summarized above. I spent a total of 50 minutes on this patient?s care on the day of their visit excluding time spent related to any billed procedures. This time includes time spent with the patient as well as time spent documenting in the medical record, reviewing patients records and tests, obtaining history, placing orders, communicating with other healthcare professionals, counseling the patient, family or caregiver, and/or care coordination for the diagnoses above. Electronically Signed by: Lupillo Cisneros MD T: 11:54 AM CC: Krys?Ilia,? PCP: Ramesh Beasley Referring: Ramesh Beasley This document was completed utilizing speech recognition software. Grammatical errors, random word insertions, pronoun errors, and incomplete sentences are an occasional consequence of this system due to software limitations, ambient noise, and hardware issues. Any formal questions or concerns about the content, text or information contained within the body of this dictation should be directly addressed to the provider for clarification.
== END 2025-03-07 23:59 | disposition home or self-care (01) ==
LOC: SCTC 11:13
PROVIDERS: PCP Internal Medicine; Referring Provider Internal Medicine; Visit Provider Internal Medicine Hematology & Oncology
DX: Z51.12 Encounter for antineoplastic immunotherapy (principal); C15.9 Malignant neoplasm of esophagus, unspecified; Z90.49 Acquired absence of other specified parts of digestive tract
CPT/HCPCS: 96413; 99212; A4216; J3490; J7040; J9299; G0463

== ENCOUNTER → 2025-02-28 | Outpatient (CLI) | payer MEDICARE, BC, SELFPAY ==
[2025-02-28 10:17] LABS: Misc Send Out* See Sep Rpt
[2025-02-28 10:28] LABS: Basophils # (Auto) 0.0 Thou/mm3 (0.0-0.2); Basophils % (Auto) 1 % (0-2.5); Eosinophils # (Auto) 0.1 Thou/mm3 (0.0-0.5); Eosinophils % (Auto) 1 % (0-10); Hematocrit 46.6 % (41.0-53.0); Hemoglobin 15.9 g/dL (13.5-16.0); Immature Granulocytes Auto 0.02 Thou/mm3 (0.00-0.00); Lymphocytes # (Auto) 1.1 Thou/mm3 (1.0-4.8); Lymphocytes % (Auto) 22 % (10-50); Mean Corpuscular HGB Conc 34.1 g/dl (31.0-37.0); Mean Corpuscular Hemoglobin 31.1 pg (25.0-35.0); Mean Corpuscular Volume 91 fL (80-100); Monocytes # (Auto) 0.6 Thou/mm3 (0.0-0.8); Monocytes % (Auto) 12 % (0-12); Neutrophils # (Auto) 3.1 Thou/mm3 (1.8-7.7); Neutrophils % (Auto) 64 % (37-80); Nucleated Red Blood Cell # 0.00 Thou/mm3 (0.00-0.00); Nucleated Red Blood Cell % 0 /100 WBC (0); Platelet Count 178 Thou/mm3 (140-440); RDW Standard Deviation 44.8 fL (35.1-43.9); Red Blood Count 5.11 Miln/mm3 (4.50-5.90); White Blood Count 4.9 Thou/mm3 (3.8-10.6)
[2025-02-28 10:56] LABS: Alanine Aminotransferase 32 U/L (10-49); Albumin, Serum 5.0 gm/dL (3.4-4.8); Albumin/Globulin Ratio 2.0 (1.2-2.2); Alkaline Phosphatase 85 U/L (46-116); Anion Gap 10 (7-16); Aspartate Amino Transferase 25 U/L (0-34); BUN/Creatinine Ratio 16 Ratio (12-20); Bilirubin,Total 0.8 mg/dL (0.3-1.2); Blood Urea Nitrogen 16 mg/dL (9-23); Calcium 9.8 mg/dL (8.3-10.6); Calcium (Corrected) 9.8 mg/dL (8.5-10.1); Carbon Dioxide 28.1 mMol/L (20.0-31.0); Chloride 103 mMol/L (98-107); Creatinine (Component) 1.0 mg/dL (0.6-1.3); Globulin 2.5 gm/dL (2.3-3.5); Glucose 62 mg/dL (74-106); Osmolality,Calculated 280 (275-295); Potassium 3.7 mMol/L (3.4-5.1); Sodium 141 mMol/L (136-145); Total Protein 7.5 gm/dL (5.7-8.2); eGFR > 60 See Note
== END | disposition home or self-care (01) ==
PROVIDERS: PCP Internal Medicine; Referring Provider Internal Medicine Hematology & Oncology; Visit Provider Internal Medicine Hematology & Oncology
DX: C15.9 Malignant neoplasm of esophagus, unspecified (principal)
CPT/HCPCS: 80053; 85025

== ENCOUNTER → 2025-03-14 | Outpatient (CLI) | payer MEDICARE, BC, SELFPAY ==
[2025-03-14 08:43] LABS: Basophils # (Auto) 0.1 Thou/mm3 (0.0-0.2); Basophils % (Auto) 1 % (0-2.5); Eosinophils # (Auto) 0.1 Thou/mm3 (0.0-0.5); Eosinophils % (Auto) 3 % (0-10); Hematocrit 46.1 % (41.0-53.0); Hemoglobin 15.4 g/dL (13.5-16.0); Immature Granulocytes Auto 0.02 Thou/mm3 (0.00-0.00); Lymphocytes # (Auto) 1.2 Thou/mm3 (1.0-4.8); Lymphocytes % (Auto) 27 % (10-50); Mean Corpuscular HGB Conc 33.4 g/dl (31.0-37.0); Mean Corpuscular Hemoglobin 30.3 pg (25.0-35.0); Mean Corpuscular Volume 91 fL (80-100); Monocytes # (Auto) 0.4 Thou/mm3 (0.0-0.8); Monocytes % (Auto) 8 % (0-12); Neutrophils # (Auto) 2.7 Thou/mm3 (1.8-7.7); Neutrophils % (Auto) 61 % (37-80); Nucleated Red Blood Cell # 0.00 Thou/mm3 (0.00-0.00); Nucleated Red Blood Cell % 0 /100 WBC (0); Platelet Count 194 Thou/mm3 (140-440); RDW Standard Deviation 43.9 fL (35.1-43.9); Red Blood Count 5.09 Miln/mm3 (4.50-5.90); White Blood Count 4.4 Thou/mm3 (3.8-10.6)
[2025-03-14 08:58] LABS: Alanine Aminotransferase 33 U/L (10-49); Albumin, Serum 5.2 gm/dL (3.4-4.8); Albumin/Globulin Ratio 1.7 (1.2-2.2); Alkaline Phosphatase 75 U/L (46-116); Anion Gap 17 (7-16); Aspartate Amino Transferase 32 U/L (0-34); BUN/Creatinine Ratio 17 Ratio (12-20); Bilirubin,Total 1.0 mg/dL (0.3-1.2); Blood Urea Nitrogen 17 mg/dL (9-23); Calcium 10.1 mg/dL (8.3-10.6); Calcium (Corrected) 10.1 mg/dL (8.5-10.1); Carbon Dioxide 27.2 mMol/L (20.0-31.0); Chloride 107 mMol/L (98-107); Creatinine (Component) 1.0 mg/dL (0.6-1.3); Globulin 3.0 gm/dL (2.3-3.5); Glucose 107 mg/dL (74-106); Osmolality,Calculated 301 (275-295); Potassium 4.4 mMol/L (3.4-5.1); Sodium 151 mMol/L (136-145); Thyroid Stimulating Hormone 3.94 uIU/mL (0.55-4.78); Total Protein 8.2 gm/dL (5.7-8.2); eGFR > 60 See Note
== END | disposition home or self-care (01) ==
PROVIDERS: PCP Internal Medicine; Referring Provider Internal Medicine Hematology & Oncology; Visit Provider Internal Medicine Hematology & Oncology
DX: C15.9 Malignant neoplasm of esophagus, unspecified (principal); E03.9 Hypothyroidism, unspecified
CPT/HCPCS: 36415; 80053; 84443; 85025

== ENCOUNTER 2025-03-16 10:49 | Outpatient (RCR) | payer MEDICARE, BC, SELFPAY | END 2025-04-07 23:59 | disposition home or self-care (01) | LOC: SCTC 10:49 | PROVIDERS: PCP Internal Medicine; Referring Provider Internal Medicine; Visit Provider Internal Medicine Hematology & Oncology | DX: Z51.11 Encounter for antineoplastic chemotherapy (principal); C15.9 Malignant neoplasm of esophagus, unspecified; Z90.49 Acquired absence of other specified parts of digestive tract; Z92.3 Personal history of irradiation | CPT/HCPCS: 96413; J3490; J9299 ==

== ENCOUNTER → 2025-04-11 | Outpatient (CLI) | payer MEDICARE, BC, SELFPAY ==
[2025-04-11 09:49] LABS: Basophils # (Auto) 0.1 Thou/mm3 (0.0-0.2); Basophils % (Auto) 2 % (0-2.5); Eosinophils # (Auto) 0.1 Thou/mm3 (0.0-0.5); Eosinophils % (Auto) 2 % (0-10); Hematocrit 46.6 % (41.0-53.0); Hemoglobin 15.3 g/dL (13.5-16.0); Immature Granulocytes Auto 0.01 Thou/mm3 (0.00-0.00); Lymphocytes # (Auto) 1.2 Thou/mm3 (1.0-4.8); Lymphocytes % (Auto) 28 % (10-50); Mean Corpuscular HGB Conc 32.8 g/dl (31.0-37.0); Mean Corpuscular Hemoglobin 30.2 pg (25.0-35.0); Mean Corpuscular Volume 92 fL (80-100); Monocytes # (Auto) 0.5 Thou/mm3 (0.0-0.8); Monocytes % (Auto) 11 % (0-12); Neutrophils # (Auto) 2.5 Thou/mm3 (1.8-7.7); Neutrophils % (Auto) 57 % (37-80); Nucleated Red Blood Cell # 0.00 Thou/mm3 (0.00-0.00); Nucleated Red Blood Cell % 0 /100 WBC (0); Platelet Count 158 Thou/mm3 (140-440); RDW Standard Deviation 44.9 fL (35.1-43.9); Red Blood Count 5.07 Miln/mm3 (4.50-5.90); White Blood Count 4.3 Thou/mm3 (3.8-10.6)
[2025-04-11 10:11] LABS: Alanine Aminotransferase 54 U/L (10-49); Albumin, Serum 5.3 gm/dL (3.4-4.8); Albumin/Globulin Ratio 2.4 (1.2-2.2); Alkaline Phosphatase 90 U/L (46-116); Anion Gap 10 (7-16); Aspartate Amino Transferase 40 U/L (0-34); BUN/Creatinine Ratio 17 Ratio (12-20); Bilirubin,Total 0.8 mg/dL (0.3-1.2); Blood Urea Nitrogen 15 mg/dL (9-23); Calcium 9.8 mg/dL (8.3-10.6); Calcium (Corrected) 9.8 mg/dL (8.5-10.1); Carbon Dioxide 26.5 mMol/L (20.0-31.0); Chloride 104 mMol/L (98-107); Creatinine (Component) 0.9 mg/dL (0.6-1.3); Globulin 2.2 gm/dL (2.3-3.5); Glucose 99 mg/dL (74-106); Osmolality,Calculated 280 (275-295); Potassium 4.2 mMol/L (3.4-5.1); Sodium 140 mMol/L (136-145); Thyroid Stimulating Hormone 3.50 uIU/mL (0.55-4.78); Total Protein 7.5 gm/dL (5.7-8.2); eGFR > 60 See Note
== END | disposition home or self-care (01) ==
LOC: SCTO 07:54
PROVIDERS: PCP Internal Medicine; Referring Provider Internal Medicine Hematology & Oncology; Visit Provider Internal Medicine Hematology & Oncology
DX: C15.9 Malignant neoplasm of esophagus, unspecified (principal)
CPT/HCPCS: 36415; 80053; 84443; 85025

== ENCOUNTER 2025-04-25 13:56 | Outpatient (RCR) | payer MEDICARE, BC, SELFPAY ==
--- NOTE | 2025-04-25 15:13 | CTCFLWUP_ITS ---
Patient: ATIF DOBSON : 1945 Page 2 of 2 FOLLOW UP NOTE DATE OF SERVICE: 04/25/2025 NAME: ATIF DOBSON ACCOUNT: [id number] : 1945 AGE: 79 INTERVAL HISTORY: Subjective: Chief Complaint Follow-up for esophageal cancer treatment and monitoring. Patient is on opdivo and doing well. 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 The patient is currently in remission and undergoing immunotherapy with opdivo The patient reports no new symptoms or concerns. He has been adhering to his treatment regimen and continues to receive Novello map, which is planned to continue for 2 years. The patient's overall health status has improved, with the clinician noting that he is now in perfect health. However, the patient is still recovering from the effects of chemotherapy, which he underwent twice. He is experiencing some fatigue and reduced stamina, as evidenced by the recommendation to start with small walks. The patient's dental health is reported as good, though he may be experiencing sand drier than normal mouth conditions, a possible side effect of his treatments. He maintains regular dental check-ups every 6 months. 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 He is now encouraged to travel and enjoy life, indicating an improvement in his overall condition and quality of life. Medications and Supplements - Novello map - Continuing for 2 years - Treatment is working, patient is in remission Review of Systems HEENT: Positive for dry mouth. Objective: Laboratory, Imaging, and Diagnostic Test Results - DNA test for cancer: Negative - Netera blood test: Negative (0) - PET scan (October 2024): Negative - PET scan (October 2023): Negative - Ultrasound (08/18/2024): Negative - Bone density (07/14/2024): Normal - PET CT scan (10/11/2024): - Stable subcentimeter left upper paratracheal lymph node - Continued resolution of FDG uptake compatible with treated disease - No suspicious FDG-avid lesions - No enlarged lymph nodes - No free air or fluid collections - Thyroid function tests: Within normal limits ONCOLOGY HISTORY: DIAGNOSIS: Malignant neoplasm of esophagus, unspecified [ICD10] C15.9 DATE OF DIAGNOSIS: 01/13/2022 STAGE/TNM: Recurrent esophageal cancer TREATMENT HISTORY: Care?Plan Start?Date Cycle Day Intent Taxol?50mg/m*2?+?Carbo?AUC?2?+?Concurrent?XRT 04/15/2022 1 7 Curative?(primary) mFOLFOX-6?-?5FU?400?+?2400?CIV,?LVR?400,?OXALIplat?85?nivolumab 04/13/2023 1 14 Palliative OPDIvo 10/08/2023 1 14 Palliative OPDIvo?480mg?every?4?weeks 06/23/2024 1 28 Maintenance HISTORY OF PRESENT ILLNESS: Atif Dobson is a 79-year-old ENG speaking male with history of hypertension as well as hypothyroidism has the following oncology history. June 2021: Patient started noticing having trouble swallowing as well as a sensation of a mass lesion in the throat. Initially patient saw ENT physician and later saw Dr. Morillo operations support representative. 01/13/2022: Mr. Dobson had endoscopy performed by Dr. Morillo. 03/04/2022: Mr. Dobson had PET/CT scan done at [facility]. 03/10/2022: Mr. Dobson had upper GI endoscopy with ultrasound? 03/14/2022: Mr. Dobson was seen by Dr. Morro Cobian, GI surgeon of [facility] who recommended neoadjuvant chemoradiation followed by possible surgery. 03/27/2022: Mr. Dobson was seen by Dr. Chapa, radiation oncologist here at [facility] cancer center. 06/15/2021 - 05/27/2022: Patient was treated with chemoradiation. For chemotherapy he was on weekly Taxol and carboplatin. 06/03/2022: PET/CT scan? 07/23/2022: Mr. Dobson had esophagectomy done at [facility]. Surgical pathology report is not available to me today. 09/26/2022: PET/CT scan? 02/19/2023: PET/CT scan? 04/13/2023?08/04/2023: Mr. Dobson received 7 cycle of modified FOLFOX 6 with nivolumab. 10/08/2019: He was started on single agent nivolumab. 09/16/2023 - 09/29/2023: Mr. Dobson received 3000 cGy radiation to the chest. 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 Tobacco?Pack?per?Day:?0 Tobacco?Use?Years:?0 Tobacco?Use:?Denies ETOH Use:?Drank 12pk/beer/day x 30yrs- Quit recently Drug?Note:?Denies Social History Note:?Live with ; daughter and son-in-law MEDICATIONS: 1. aspirin - 81 mg 1 tab Daily 2. atorvastatin - 10 mg 1 tab Daily 3. levothyroxine - 100 mcg 1 tab Daily 4. loratadine - 10 mg 1 tab Daily 5. omeprazole - 40 mg 1 Capsule Daily Medications Last Reconciled by Alesia Rose MD on 04/25/2025 ALLERGIES: No Known Drug Allergies REVIEW OF SYSTEMS: A complete 14-point review of systems was performed and is negative except as noted in interval history. PHYSICAL EXAMINATION: VITAL SIGNS: Temperature?98.3, B/P?130/68, Oxygen?Saturation?97% Weight?141?lbs (Change?since?04/13/25:?-1?lbs) PAIN: 0 - No pain ECOG Performance Status: 0 - Asymptomatic and fully active GENERAL APPEARANCE: Appears well, in no apparent distress, appropriately interactive. HEENT: Normocephalic, no temporal wasting, normal conjunctiva, no scleral icterus, normal hearing, lips without lesions, neck normal range of motion. CARDIOVASCULAR: Not assessed. PULMONARY: Normal respiratory effort, no respiratory distress or use of accessory muscles, speaking in full sentences, no tachypnea. EXTREMITIES: No pedal edema or cyanosis. SKIN: Normal skin appearance. NEUROLOGIC: Alert and oriented x4. PSHYCHIATRIC: Appropriate affect, mood normal, behavior normal, intact thought and speech. LABORATORY DATA: I have personally reviewed and interpreted each of the patient?s relevant lab tests, abnormal findings are below: Date 03/14/25 04/11/25 ??WHITE?BLOOD?COUNT?(Thou/mm3) 4.4 4.3 ??RED?BLOOD?COUNT?(Miln/mm3) 5.09 5.07 ??HEMOGLOBIN?(gm/dl) 15.4 15.3 ??HEMATOCRIT?(%) 46.1 46.6 ??PLATELET?COUNT?(Thou/mm3) 194 158 ??NEUTROPHILS?%,?AUTO?(%) 61 57 ??LYMPH?%,?AUTO?(%) 27 28 ??NEUTROPHILS,?AUTO?(Thou/mm3) 2.7 2.5 ??GLUCOSE,RANDOM?(mg/dL) 107?H 99 ??BLOOD?UREA?NITROGEN?(mg/dL) 17 15 ??CREATININE?(mg/dL) 1.00 0.90 ??SODIUM?(mmol/L) 151?H 140 ??POTASSIUM?(mmol/L) 4.4 4.2 ??CHLORIDE?(mmol/L) 107 104 ??CrCl?(CandG)?(ml/min) 55.70 60.59 ??AST/SGOT?(Unit/L) 32 40?H ??ALT/SGPT?(Unit/L) 33 54?H ??ALKALINE?PHOSPHATASE?(Unit/L) 75 90 ??BILIRUBIN,?TOTAL?(mg/dL) 1.0 0.8 ??PROTEIN?TOTAL?(gm/dl) 8.2 7.5 ??ALBUMIN,?SERUM?(gm/dl) 5.2?H 5.3?H ??GLOBULIN?(gm/dl) 3.0 2.2?L ??ALBUMIN/GLOBULIN?RATIO 1.7 2.4?H ??CALCIUM,?SERUM?(mg/dL) 10.1 9.8 ??CALCIUM?SERUM?(CORRECTED)?(mg/dL) 10.1 9.8 ASSESSMENT/PLAN: 1) Recurrent invasive squamous cancer of esophagus 2) Patient had recurrence in the peritracheal lymph node which was similar to his initial cancer which was diagnosed in 2021 Clinical stage 1 (GEORGE) 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 Squamous cell carcinoma of esophagus, status post-esophagectomy Assessment: Patient is currently in remission from squamous cell carcinoma of the esophagus. Recent diagnostic tests show favorable results: DNA test for cancer is negative with 87-90% accuracy, and Netera blood test is consistently negative (zero). PET CT scan from October 11, 2024, shows stable subcentimeter left upper paratracheal lymph node with continued resolution of FDG uptake, compatible with treated disease. No suspicious FDG-avid lesions, enlarged lymph nodes, free air, or fluid collections were observed. A small growth persists but has decreased in size and is likely scar tissue or tissue given the negative Netera results. Ultrasound on August 18, 2024, was negative, and bone density on July 14, 2024, was normal. 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 Plan: - Continue (immunotherapy) for 2 years 02/2026 -Ordered CT scan for February- Co Continue Netera blood test every 3 months . Last naterrra is negative - Encourage gradual increase in physical activity, starting with small walks Thyroid function Assessment: Thyroid function is currently within normal limits based on recent laboratory results. Plan: - No changes to current management - Continue monitoring as part of routine follow-up ORDERS: Order # Description [id number] CBC + Comprehensive Metabolic Panel [id number] Lab Appointment [id number] Follow Up Appointment [id number] CBC + Comprehensive Metabolic Panel [id number] Lab Appointment [id number] Follow Up Appointment [id number] CBC + Comprehensive Metabolic Panel [id number] Lab Appointment [id number] Follow Up Appointment RETURN TO CLINIC: I reviewed the diagnosis, prognosis, and recommended treatment/procedure options with the patient (and/or their legal hostess party sales representative), including the potential benefits, risks, side effects and alternative therapies. We also discussed the option of no treatment and the possibility of clinical trial participation, if applicable. All questions were addressed, and they demonstrated understanding. They provided informed consent to proceed with the proposed plan of care. BILLING AND COMPLIANCE: I reviewed external records from providers outside my specialty as summarized above. I spent a total of 50 minutes on this patient?s care on the day of their visit excluding time spent related to any billed procedures. This time includes time spent with the patient as well as time spent documenting in the medical record, reviewing patients records and tests, obtaining history, placing orders, communicating with other healthcare professionals, counseling the patient, family or caregiver, and/or care coordination for the diagnoses above. Electronically Signed by: Lupillo Cisneros MD T: 3:10 PM CC: Krys?lIia? PCP: Ramesh Beasley Referring: Ramesh Beasley This document was completed utilizing speech recognition software. Grammatical errors, random word insertions, pronoun errors, and incomplete sentences are an occasional consequence of this system due to software limitations, ambient noise, and hardware issues. Any formal questions or concerns about the content, text or information contained within the body of this dictation should be directly addressed to the provider for clarification.
== END 2025-05-07 23:59 | disposition home or self-care (01) ==
LOC: SCTC 13:56
PROVIDERS: PCP Internal Medicine; Referring Provider Internal Medicine; Visit Provider Internal Medicine Hematology & Oncology
DX: Z51.11 Encounter for antineoplastic chemotherapy (principal); C15.4 Malignant neoplasm of middle third of esophagus; Z90.49 Acquired absence of other specified parts of digestive tract
CPT/HCPCS: 96413; 99212; J3490; J9299; G0463

== ENCOUNTER → 2025-05-09 | Outpatient (CLI) | payer MEDICARE, BC, SELFPAY ==
[2025-05-09 08:21] LABS: Hemoglobin 15.0 g/dL (13.5-16.0); Nucleated Red Blood Cell # 0.00 Thou/mm3 (0.00-0.00); Nucleated Red Blood Cell % 0 /100 WBC (0)
[2025-05-09 08:29] LABS: Basophils # (Auto) 0.1 Thou/mm3 (0.0-0.2); Basophils % (Auto) 1 % (0-2.5); Eosinophils # (Auto) 0.1 Thou/mm3 (0.0-0.5); Eosinophils % (Auto) 2 % (0-10); Hematocrit 45.9 % (41.0-53.0); Immature Granulocytes Auto 0.01 Thou/mm3 (0.00-0.00); Lymphocytes # (Auto) 1.1 Thou/mm3 (1.0-4.8); Lymphocytes % (Auto) 22 % (10-50); Mean Corpuscular HGB Conc 32.7 g/dl (31.0-37.0); Mean Corpuscular Hemoglobin 30.6 pg (25.0-35.0); Mean Corpuscular Volume 94 fL (80-100); Monocytes # (Auto) 0.3 Thou/mm3 (0.0-0.8); Monocytes % (Auto) 7 % (0-12); Neutrophils # (Auto) 3.3 Thou/mm3 (1.8-7.7); Neutrophils % (Auto) 68 % (37-80); Platelet Count 168 Thou/mm3 (140-440); RDW Standard Deviation 46.1 fL (35.1-43.9); Red Blood Count 4.90 Miln/mm3 (4.50-5.90); White Blood Count 4.9 Thou/mm3 (3.8-10.6)
[2025-05-09 09:09] LABS: Alanine Aminotransferase 44 U/L (10-49); Albumin, Serum 5.1 gm/dL (3.4-4.8); Alkaline Phosphatase 88 U/L (46-116); Anion Gap 11 (7-16); Aspartate Amino Transferase 33 U/L (0-34); BUN/Creatinine Ratio 15 Ratio (12-20); Bilirubin,Total 0.7 mg/dL (0.3-1.2); Blood Urea Nitrogen 15 mg/dL (9-23); Calcium 9.6 mg/dL (8.3-10.6); Calcium (Corrected) 9.6 mg/dL (8.5-10.1); Carbon Dioxide 26.8 mMol/L (20.0-31.0); Chloride 105 mMol/L (98-107); Creatinine (Component) 1.0 mg/dL (0.6-1.3); Glucose 159 mg/dL (74-106); Osmolality,Calculated 288 (275-295); Potassium 4.1 mMol/L (3.4-5.1); Sodium 143 mMol/L (136-145); Thyroid Stimulating Hormone 4.68 uIU/mL (0.55-4.78); eGFR > 60 See Note
[2025-05-09 13:00] LABS: Albumin/Globulin Ratio 1.8 (1.2-2.2); Globulin 2.9 gm/dL (2.3-3.5); Total Protein 8.0 gm/dL (5.7-8.2)
[2025-05-15 06:39] LABS: T3,Total* 75 ng/dL (76-181)
== END | disposition home or self-care (01) ==
LOC: SCTO 07:50
PROVIDERS: PCP Internal Medicine; Referring Provider Internal Medicine Hematology & Oncology; Visit Provider Internal Medicine Hematology & Oncology
DX: C15.9 Malignant neoplasm of esophagus, unspecified (principal)
CPT/HCPCS: 36415; 80053; 84443; 84480; 85025

== ENCOUNTER 2025-05-11 13:50 | Outpatient (RCR) | payer MEDICARE, BC, SELFPAY | END 2025-06-07 23:59 | disposition home or self-care (01) | LOC: SCTC 13:50 | PROVIDERS: PCP Internal Medicine; Referring Provider Internal Medicine; Visit Provider Internal Medicine Hematology & Oncology | DX: Z51.11 Encounter for antineoplastic chemotherapy (principal); C15.9 Malignant neoplasm of esophagus, unspecified; Z90.49 Acquired absence of other specified parts of digestive tract | CPT/HCPCS: 96413; J3490; J7040; J9299 ==